=== PATIENT | female | born 1955 | race African-American/Black ===

== ENCOUNTER 2018-03-21 14:52 | Inpatient (IN) | payer OTHER ==
--- NOTE | 2018-03-21 15:14 | PDOC ---
Rapid Medical Evaluation Time Seen by Provider: 03/21/18 15:01 Medical Evaluation: Allergies Allergy/AdvReac Type Severity Reaction Status Date / Time No Allergy Information Allergy Verified 03/21/18 15:03 Available 03/21/18 15:05 I have performed a brief in-person evaluation of this patient. The patient presents with a chief complaint of: mouth pain, unable to handle secretions and speak and dizzy. Mouth pain x 2 weeks, dx w/ virus on 2 prior ED visits elsewhere. Sxs worsen today. No new drug prior to sxs onset. Is allergic to 1 medication but james not remember name. H/o PPM per daughter Pertinent physical exam findings: Pt febrile to 102 and take at 120 but uncomfortable at triage, drooling into facial mask w/ foul odor emanating from mouth and dried blood on lower lip, unable to open mouth fully I have ordered the following: labs, pt taken directly to main ED The patient will proceed to the ED for further evaluation. Discharge Disposition - Diagnosis Mouth pain - Referrals - Patient Instructions - Post Discharge Activity
[2018-03-21 17:07] LABS: HEMATOCRIT 31.2 % (32.4-45.2); HEMOGLOBIN 10.4 GM/dL (10.7-15.3); MCH 31.5 pg (25.7-33.7); MCHC 33.4 g/dl (32.0-36.0); MEAN CELL VOLUME 94.5 fl (80-96); MEAN PLT VOLUME 9.4 fl (7.5-11.1); PLATELET COUNT 246 K/MM3 (134-434); RDW 18.5 % (11.6-15.6); VENOUS PC02 36.1 mmHg (38-52); VENOUS PH 7.49 (7.32-7.42); VENOUS PO2 55.6 mmHg (28-48)
[2018-03-21] MEDS ORDERED: SODIUM CHLORIDE 1,000 ML IV STA (17:16)
[2018-03-21] MEDS ORDERED: ACETAMINOPHEN 1000 MG/100 ML VIAL (NON FORMULARY) IVPB ONE (17:16)
[2018-03-21] MEDS ORDERED: morphine CARPU-JECT 2 MG/1 ML DISP.SYRIN IVPUSH ONE (17:16)
[2018-03-21] MEDS ORDERED: ACETAMINOPHEN INJECTION 100 ML IVPB ONE (17:18)
[2018-03-21] MEDS ORDERED: MORPHINE SULFATE 2 MG/ML VIAL ONE (17:18)
[2018-03-21 17:23] LABS: WHITE BLOOD COUNT 0.8 K/mm3 (4.0-10.0)
[2018-03-21 17:31] LABS: ALBUMIN 3.4 g/dl (3.4-5.0); ANION GAP 9 (8-16); BLOOD UREA NITROGEN 33 mg/dL (7-18); CALCIUM 9.7 mg/dL (8.5-10.1); CHLORIDE 109 mmol/L (98-107); CO2 30 mmol/L (21-32); CREATININE 1.7 mg/dL (0.55-1.02); GLUCOSE,RANDOM 155 mg/dL (74-106); INR 1.19 (0.83-1.09); POTASSIUM 3.5 mmol/L (3.5-5.1); PROTHROMBIN TIME (PATIENT) 13.4 SEC (9.7-13.0); SGOT/AST 55 U/L (15-37); SGPT/ALT 77 U/L (12-78); SODIUM 148 mmol/L (136-145); TOT PROT 7.9 g/dl (6.4-8.2)
[2018-03-21 17:32] LABS: ALK PHOS 99 U/L (45-117)
[2018-03-21 17:33] LABS: ACTIVATED PTT 28.4 SECONDS (25.2-36.5)
[2018-03-21 17:45] LABS: HEMATOCRIT 31.3 % (32.4-45.2); HEMOGLOBIN 10.3 GM/dL (10.7-15.3); MCH 31.2 pg (25.7-33.7); MCHC 32.9 g/dl (32.0-36.0); MEAN CELL VOLUME 94.7 fl (80-96); MEAN PLT VOLUME 9.3 fl (7.5-11.1); PLATELET COUNT 240 K/MM3 (134-434); RBC 3.31 M/mm3 (3.60-5.2); RDW 19.1 % (11.6-15.6)
[2018-03-21] MEDS ORDERED: CEFEPIME HCL/D5W 2 GM/50 ML BAG IVPB ONE (18:04)
[2018-03-21 18:08] LABS: WHITE BLOOD COUNT 0.9 K/mm3 (4.0-10.0)
[2018-03-21] MEDS ORDERED: VANCOMYCIN 1,500 MG in DEXTROSE 5%-WATER - 500 ML IVPB ONE (18:10)
[2018-03-21] MEDS ORDERED: ACYCLOVIR INJECTION 860 MG in DEXTROSE 5%-WATER - 100 ML IVPB ONE (18:14)
[2018-03-21] MEDS ORDERED: ACYCLOVIR IVPB ONE (18:35)
[2018-03-21] MEDS ORDERED: WATER IVPB ONE (18:35)
[2018-03-21] MEDS ORDERED: DEXTROSE 5% IVPB ONE (18:35)
[2018-03-21 18:42] LABS: URINE APPEARANCE SLCLOUDY; URINE BILIRUBIN NEGATIVE (<2.0 mg/dL); URINE COLOR AMBER; URINE GLUCOSE (UA) NEGATIVE (NEGATIVE); URINE KETONE NEGATIVE (NEGATIVE); URINE LEUK ESTERASE NEGATIVE (NEGATIVE); URINE NITRITE NEGATIVE (NEGATIVE); URINE UROBILINOGEN 4.0 E.U/dl mg/dL (0.2-1.0)
--- NOTE | 2018-03-21 18:45 | PDOC ---
Attending Attestation - Medical Decision Making Case discussed with Dr. Lewis at 19:31. <Anig Dunn - Last Filed: 03/21/18 19:32> - Resident Resident Name: Adeel Harris - ED Attending Attestation I have performed the following: I have examined & evaluated the patient, The case was reviewed & discussed with the resident, I agree w/resident's findings & plan, Exceptions are as noted - HPI HPI: 03/21/18 20:36 "62F Accompanied with daughter presenting to ED with painful ulcers to mouth and rectum. Pt unable to contribute much history due to painful oral ulcers. Per daughter, pt was initially seen at [facility] [facility] 1 month ago for similar symptoms and was told she had a viral syndrome. Was given magic mouthwash which helped initially. Since then, pt has had progressive worsening of her ulcers. Pt denies noticing any fevers at home. Denies any other symptoms other than the severe pain in her mouth and rectum 2/2 ulcers. No skin lesions anywhere else on her body. Pmh: hypothyroidism (on synthroid), arthritis, pacemaker Smokes half a pack per day, no alcohol or drug use " - Physicial Exam PE: 03/21/18 20:39 "GENERAL: Awake, alert, in no acute distress. HEAD: No signs of trauma EYES: PERRLA, EOMI, sclera anicteric, conjunctiva clear ENT: + extensive aphthous ulcers with cracked lips NECK: Nontender, no stepoffs, Normal ROM, supple, no lymphadenopathy, JVD, or masses LUNGS: Breath sounds equal, clear to auscultation bilaterally. No wheezes, and no crackles HEART: Regular rate and rhythm, normal S1 and S2, no murmurs, rubs or gallops ABDOMEN: Soft, nontender, normoactive bowel sounds. No guarding, no rebound. No masses RECTAL: + multiple ulcers surrounding anus with surrounding erythema, no purulent drainage EXTREMITIES: Normal range of motion, no edema. No clubbing or cyanosis. No cords, erythema, or tenderness NEUROLOGICAL: Cranial nerves II through XII intact. 5/5 strength and sensation in all extremities, Normal speech, normal gait, normal cerebellar function SKIN: Warm, Dry, normal turgor, no rashes or lesions noted." - Medical Decision Making 03/21/18 20:40 62 F presenting with oral and rectal ulcers, found to be febrile to 103. Will evaluate for sepsis, source unclear at this point. Pt also concerning for possible autoimmune process or vasculitis. - Labs, cultures - CXR, UA - IVF, tylenol - Abx - ID consult - Rheum consult 03/21/18 21:00 Pt with neutropenic fever, etiology of neutropenia unclear. Pt possibly on immunosuppressants for RA, though she denies recent use. Vanc and cefepime ordered Acyclovir also given for possible HSV <Esteban Casas - Last Filed: 03/23/18 20:59> Attestations - Attestations Documentation prepared by Angi Dunn, acting as medical manager for Esteban Casas MD. <Angi Dunn - Last Filed: 03/21/18 19:32>
[2018-03-21 18:55] LABS: URINE PROTEIN 1+ (NEGATIVE)
[2018-03-21 19:02] LABS: EPI CELLS RARE /HPF (FEW); URINE BACTERIA RARE /hpf (NONE SEEN); URINE HYALINE CAST 31 /lpf; URINE MUCUS RARE
[2018-03-21] MEDS ORDERED: DEXAMETHASONE SOD PHOSPHATE 10 MG/1 ML VIAL IVPUSH ONE (19:23)
[2018-03-21 20:30] LABS: ANISOCYTOSIS 1+; MACROCYTOSIS 1+
--- NOTE | 2018-03-21 21:03 | PDOC ---
History of Present Illness - General Chief Complaint: SIRS, Suspected/Possible Stated Complaint: MOUTH BLEED, LIGHTHEADED Time Seen by Provider: 03/21/18 15:01 History Source: Family (daughter maxime) Exam Limitations: Physical Impairment - History of Present Illness Initial Comments: 03/21/18 21:26 Ms. Durham is a 62 yo F with a hx of arthritis, pacemaker, and hypothyroidism presents to the emergency room with painful ulcers to the mouth and rectum. Hx is limited due to the patient inability to communicate due to pain in the mouth and daughter's incomplete knowledge of her medical history. Per the daughter, she states she was initially seen at [facility] on February 27 for painful mouth ulcers. She was discharged from the emergency department with lidocaine wash and told it was a viral syndrome. Throughout the subsequent weeks , her pain has worsened. Pt was last seen communicative at 8pm yesterday. The daughter called today at 11am and her mother (Letty Durham) was only able to communicate with grunts and moans. She states no other sick contacts at home and denies a hx of autoimmune disorders. Through limited communication, the patient was able to indicate she had pain in her mouth and rectum with the ability to breathe. Pmhx: hypothyroidism, arthritis, pacemaker Shx: None Medications: synthroid. Allergies: NKDA Social: smokes 0.5 packs/day, denies alcohol and drug use. PCP: Unknown 03/21/18 22:21 Past History - Past Medical History Allergies/Adverse Reactions: Allergies Allergy/AdvReac Type Severity Reaction Status Date / Time No Allergy Information Allergy Verified 03/21/18 15:03 Available Home Medications: Ambulatory Orders Furosemide 80 mg PO DAILY 03/24/18 COPD: No - Immunization History Immunization Up to Date: (UNKNOWN) - Suicide/Smoking/Psychosocial Hx Smoking History: Current every day smoker Have you smoked in the past 12 months: Yes Information on smoking cessation initiated: No Review of Systems - Review of Systems Able to Perform ROS?: No (UNABLE TO COMMUNICATE) *Physical Exam - Vital Signs Last Vital Signs Temp Pulse Resp BP Pulse Ox 103.1 F H 93 H 20 116/71 98 03/21/18 17:08 03/21/18 18:39 03/21/18 16:22 03/21/18 16:22 03/21/18 16:22 - Physical Exam General Appearance: Yes: Mild Distress HEENT: positive: Other (ulcerations in the lower lip with drooling. Unable to visualize the oral cavity to completion due to patient unwilling to open mouth. Pupils were reactive to light and EOMI. ) Respiratory/Chest: positive: Lungs Clear, Normal Breath Sounds Cardiovascular: positive: Regular Rhythm, S1, S2, Tachycardia Gastrointestinal/Abdominal: positive: Normal Bowel Sounds. negative: Tender Rectal Exam: positive: other (ulcerations located in the anus region, perineal region, and inferior labia majora region. Ulcerations with clean margins and erythematous base without exudation.) Musculoskeletal: positive: Normal Inspection Integumentary: positive: Normal Color, Dry, Warm Neurologic: positive: Alert, Disoriented, Other (difficult to assess given patient compliance. able to move extremities sponatneously. ) Heart Score/ECG Review - ECG Intrepretation Comment:: 03/21/18 22:27 vent rate is 99 bpm, DC interval 158 ms, QRS 106 ms, QTc at 413 ms. atrial sensed ventricular paced rhythm. 03/21/18 22:31 ED Treatment Course - LABORATORY CBC & Chemistry Diagram: 03/25/18 06:00 03/25/18 06:00 - ADDITIONAL ORDERS Additional order review: Laboratory Results 03/21/18 03/21/18 03/21/18 18:33 18:00 16:50 PT with INR INR PTT (Actin FS) VBG pH POC VBG pCO2 POC VBG pO2 Mixed VBG HCO3 Sodium Potassium Chloride Carbon Dioxide Anion Gap BUN Creatinine Creat Clearance w eGFR Random Glucose Lactic Acid 1.8 Calcium Total Bilirubin AST ALT Alkaline Phosphatase Troponin I Total Protein Albumin Urine Color [place] Urine Appearance Slcloudy Urine pH 5.0 Ur Specific [place] 1.017 Urine Protein 1+ H Urine Glucose (UA) Negative Urine Ketones Negative Urine Blood Negative Urine Nitrite Negative Urine Bilirubin Negative Urine Urobilinogen 4.0 e.u/dl H Ur Leukocyte Esterase Negative Urine WBC (Auto) 5 Urine RBC (Auto) 2 Ur Epithelial Cells Rare Urine Bacteria Rare Hyaline Casts 31 Urine Mucus Rare Blood Type O POSITIVE Antibody Screen Negative 03/21/18 03/21/18 03/21/18 16:50 16:50 16:50 PT with INR INR PTT (Actin FS) VBG pH POC VBG pCO2 POC VBG pO2 Mixed VBG HCO3 Sodium 148 H Potassium 3.5 Chloride 109 H Carbon Dioxide 30 Anion Gap 9 BUN 33 H Creatinine 1.7 H Creat Clearance w eGFR 30.56 Random Glucose 155 H Lactic Acid 2.2 H* Calcium 9.7 Total Bilirubin 1.0 AST 55 H ALT 77 Alkaline Phosphatase 99 Troponin I 0.05 Total Protein 7.9 Albumin 3.4 Urine Color Urine Appearance Urine pH Ur Specific [place] Urine Protein Urine Glucose (UA) Urine Ketones Urine Blood Urine Nitrite Urine Bilirubin Urine Urobilinogen Ur Leukocyte Esterase Urine WBC (Auto) Urine RBC (Auto) Ur Epithelial Cells Urine Bacteria Hyaline Casts Urine Mucus Blood Type Antibody Screen 03/21/18 03/21/18 16:50 16:50 PT with INR 13.40 H INR 1.19 H PTT (Actin FS) 28.4 VBG pH 7.49 H POC VBG pCO2 36.1 L POC VBG pO2 55.6 H Mixed VBG HCO3 27.2 H Sodium Potassium Chloride Carbon Dioxide Anion Gap BUN Creatinine Creat Clearance w eGFR Random Glucose Lactic Acid Calcium Total Bilirubin AST ALT Alkaline Phosphatase Troponin I Total Protein Albumin Urine Color Urine Appearance Urine pH Ur Specific [place] Urine Protein Urine Glucose (UA) Urine Ketones Urine Blood Urine Nitrite Urine Bilirubin Urine Urobilinogen Ur Leukocyte Esterase Urine WBC (Auto) Urine RBC (Auto) Ur Epithelial Cells Urine Bacteria Hyaline Casts Urine Mucus Blood Type Antibody Screen 03/21/18 03/21/18 17:24 16:50 RBC 3.31 L 3.30 L MCV 94.7 94.5 MCHC 32.9 33.4 RDW 19.1 H 18.5 H MPV 9.3 9.4 Neutrophils % No Result Required. No Result Required. Lymphocytes % No Result Required. No Result Required. - RADIOLOGY Radiology Studies Ordered: Category Date Time Status CHEST X-RAY PORTABLE* [RAD] Stat Radiology 03/21/18 16:04 Completed - Medications Given in the ED: ED Medications Discontinued Medications Generic Name Dose Route Start Last Admin Trade Name Freq PRN Reason Stop Dose Admin Acetaminophen 1,000 mg 03/21/18 17:16 03/21/18 17:32 Ofirmev Injection - IVPB 03/21/18 17:17 1,000 mg ONCE ONE Administration Sodium Chloride 1,000 mls @ 1,000 mls/hr 03/21/18 17:16 03/21/18 17:31 Normal Saline - IV 03/21/18 18:15 1,000 mls/hr ASDIR STA Administration Cefepime HCl 2 gm in 50 mls @ 100 mls/hr 03/21/18 18:04 03/21/18 18:49 Maxipime 2gm Ivpb (Premix) IVPB 03/21/18 18:33 100 mls/hr ONCE ONE Administration Protocol Acyclovir 860 mg/ Dextrose 267.2 mls @ 267.2 mls/hr 03/21/18 18:35 03/21/18 19:48 IVPB 03/21/18 19:13 267.2 mls/hr ONCE ONE Administration Morphine Sulfate 2 mg 03/21/18 17:16 03/21/18 17:31 Morphine Injection - IVPUSH 03/21/18 17:17 2 mg ONCE ONE Administration Medical Decision Making - Medical Decision Making 03/21/18 21:02 Daughter Maxime's number: [phone] (alternate: [phone]) Pt presents to the emergency department with drooling, mouth ulcerations, rectal ulcerations, and elevated temperature. Concerning for sepsis +/- rheumatologic disease given physical exam findings. Initial vitals: Initial Vital Signs Temp Pulse Resp BP Pulse Ox 102.5 F H 120 H 17 110/69 98 03/21/18 15:03 03/21/18 15:03 03/21/18 15:03 03/21/18 15:03 03/21/18 15:03 Rectal temperature was done showing 103 F. Laboratory Tests 03/21/18 03/21/18 03/21/18 16:50 16:50 16:50 WBC 0.8 L* RBC 3.30 L Hgb 10.4 L Hct 31.2 L MCV 94.5 MCH 31.5 MCHC 33.4 RDW 18.5 H Plt Count 246 MPV 9.4 Absolute Neuts (auto) 0.3 Total Counted 100 Neutrophils % No Result Required. Neutrophils % (Manual) 32.0 L Band Neutrophils % 2.0 Lymphocytes % No Result Required. Lymphocytes % (Manual) 58.0 H Monocytes % (Manual) 8 Nucleated RBC % 0 Differential Comment Hypochromia 1+ Platelet Estimate Platelet Comment Anisocytosis 1+ Microcytosis 2+ Macrocytosis 1+ PT with INR 13.40 H INR 1.19 H PTT (Actin FS) 28.4 VBG pH 7.49 H POC VBG pCO2 36.1 L POC VBG pO2 55.6 H Mixed VBG HCO3 27.2 H Sodium Potassium Chloride Carbon Dioxide Anion Gap BUN Creatinine Creat Clearance w eGFR Random Glucose Lactic Acid Calcium Total Bilirubin AST ALT Alkaline Phosphatase Troponin I Total Protein Albumin Urine Color Urine Appearance Urine pH Ur Specific [place] Urine Protein Urine Glucose (UA) Urine Ketones Urine Blood Urine Nitrite Urine Bilirubin Urine Urobilinogen Ur Leukocyte Esterase Urine WBC (Auto) Urine RBC (Auto) Ur Epithelial Cells Urine Bacteria Hyaline Casts Urine Mucus HIV 1&2 Antibody Screen HIV P24 Antigen Blood Type Antibody Screen 03/21/18 03/21/18 03/21/18 16:50 16:50 16:50 WBC RBC Hgb Hct MCV MCH MCHC RDW Plt Count MPV Absolute Neuts (auto) Total Counted Neutrophils % Neutrophils % (Manual) Band Neutrophils % Lymphocytes % Lymphocytes % (Manual) Monocytes % (Manual) Nucleated RBC % Differential Comment Hypochromia Platelet Estimate Platelet Comment Anisocytosis Microcytosis Macrocytosis PT with INR INR PTT (Actin FS) VBG pH POC VBG pCO2 POC VBG pO2 Mixed VBG HCO3 Sodium 148 H Potassium 3.5 Chloride 109 H Carbon Dioxide 30 Anion Gap 9 BUN 33 H Creatinine 1.7 H Creat Clearance w eGFR 30.56 Random Glucose 155 H Lactic Acid 2.2 H* Calcium 9.7 Total Bilirubin 1.0 AST 55 H ALT 77 Alkaline Phosphatase 99 Troponin I 0.05 Total Protein 7.9 Albumin 3.4 Urine Color Urine Appearance Urine pH Ur Specific [place] Urine Protein Urine Glucose (UA) Urine Ketones Urine Blood Urine Nitrite Urine Bilirubin Urine Urobilinogen Ur Leukocyte Esterase Urine WBC (Auto) Urine RBC (Auto) Ur Epithelial Cells Urine Bacteria Hyaline Casts Urine Mucus HIV 1&2 Antibody Screen HIV P24 Antigen Blood Type Antibody Screen 03/21/18 03/21/18 03/21/18 16:50 17:04 17:24 WBC 0.9 L* RBC 3.31 L Hgb 10.3 L Hct 31.3 L MCV 94.7 MCH 31.2 MCHC 32.9 RDW 19.1 H Plt Count 240 MPV 9.3 Absolute Neuts (auto) 0.3 Total Counted 100 Neutrophils % No Result Required. Neutrophils % (Manual) 30.0 L Band Neutrophils % Lymphocytes % No Result Required. Lymphocytes % (Manual) 56.0 H Monocytes % (Manual) 14 H Nucleated RBC % 0 Differential Comment Man diff performed Hypochromia 1+ Platelet Estimate Adequate Platelet Comment Anisocytosis 1+ Microcytosis 1+ Macrocytosis 1+ PT with INR INR PTT (Actin FS) VBG pH POC VBG pCO2 POC VBG pO2 Mixed VBG HCO3 Sodium Potassium Chloride Carbon Dioxide Anion Gap BUN Creatinine Creat Clearance w eGFR Random Glucose Lactic Acid Calcium Total Bilirubin AST ALT Alkaline Phosphatase Troponin I Total Protein Albumin Urine Color Urine Appearance Urine pH Ur Specific [place] Urine Protein Urine Glucose (UA) Urine Ketones Urine Blood Urine Nitrite Urine Bilirubin Urine Urobilinogen Ur Leukocyte Esterase Urine WBC (Auto) Urine RBC (Auto) Ur Epithelial Cells Urine Bacteria Hyaline Casts Urine Mucus HIV 1&2 Antibody Screen Negative HIV P24 Antigen Negative Blood Type O POSITIVE Antibody Screen Negative 03/21/18 03/21/18 18:00 18:33 WBC RBC Hgb Hct MCV MCH MCHC RDW Plt Count MPV Absolute Neuts (auto) Total Counted Neutrophils % Neutrophils % (Manual) Band Neutrophils % Lymphocytes % Lymphocytes % (Manual) Monocytes % (Manual) Nucleated RBC % Differential Comment Hypochromia Platelet Estimate Platelet Comment Anisocytosis Microcytosis Macrocytosis PT with INR INR PTT (Actin FS) VBG pH POC VBG pCO2 POC VBG pO2 Mixed VBG HCO3 Sodium Potassium Chloride Carbon Dioxide Anion Gap BUN Creatinine Creat Clearance w eGFR Random Glucose Lactic Acid 1.8 Calcium Total Bilirubin AST ALT Alkaline Phosphatase Troponin I Total Protein Albumin Urine Color [place] Urine Appearance Slcloudy Urine pH 5.0 Ur Specific [place] 1.017 Urine Protein 1+ H Urine Glucose (UA) Negative Urine Ketones Negative Urine Blood Negative Urine Nitrite Negative Urine Bilirubin Negative Urine Urobilinogen 4.0 e.u/dl H Ur Leukocyte Esterase Negative Urine WBC (Auto) 5 Urine RBC (Auto) 2 Ur Epithelial Cells Rare Urine Bacteria Rare Hyaline Casts 31 Urine Mucus Rare HIV 1&2 Antibody Screen HIV P24 Antigen Blood Type Antibody Screen Given the neutropenic fever, she was started on cefepime, vancomycin, and acyclovir in the department. Dr. Limon was consulted and agreed with the management plan and suggested for CT chest abd pelvis for concerns of a possible malignancy. She was admitted as an inpatient. 03/25/18 13:25 *DC/Admit/Observation/Transfer Diagnosis at time of Disposition: Mouth pain, Neutropenic fever Sepsis Qualifiers: Sepsis type: sepsis due to unspecified organism Qualified Code(s): A41.9 - Sepsis, unspecified organism - Discharge Dispostion Decision to Admit order: Yes - Referrals - Patient Instructions - Post Discharge Activity
[2018-03-21 21:38] LABS: ANISOCYTOSIS 1+; MACROCYTOSIS 1+
[2018-03-21 21:39] LABS: PLATELET ESTIMATE ADEQUATE
--- NOTE | 2018-03-22 00:37 | PN ---
Teaching Attending Note Name of Resident: Haylee Portillo ATTENDING PHYSICIAN STATEMENT I saw and evaluated the patient. I reviewed the resident's note and discussed the case with the resident. I agree with the resident's findings and plan as documented. SUBJECTIVE: Patient is a 62 year old woman with a history of arthritis, tobacco use, pacemaker, and hypothyroidism presents to the ER with painful ulcers to the mouth and rectum. As per the daughter, patient was seen at [facility] on February 27 for painful mouth ulcers. She was discharged from the emergency department with lidocaine wash and told it was a viral syndrome. Throughout the subsequent weeks, her pain has worsened. Patient was last seen communicative at 8pm yesterday. The daughter called today at 11am and her mother was only able to communicate with grunts and moans. She states no other sick contacts at home and denies a hx of autoimmune disorders. Through limited communication, the patient was able to indicate she had pain in her mouth and rectum. OBJECTIVE: Alert. Difficulty talking due to painful mouth ulcers. Vital Signs Period Temp Pulse Resp BP Sys/Muniz Pulse Ox Last 24 Hr 102.5 F-103.1 F 93-120 17-20 110-116/69-71 98-98 HEENT: No Jaundice, eye redness or discharge, fundi not seen; PERRLA, EOMI. Unable to open mouth very wide, but has visible mouth ulcers. Normocephalic, atraumatic. External ears are normal and hearing is grossly intact. No nasal discharge. Neck: Supple, nontender. No palpable adenopathy or thyromegaly. No JVD Chest: Good effort. Clear to auscultation and percussion. Heart: Regular. No S3, rub or murmur Abdomen: Not distended, soft, nontender and no HSM. No rebound or guarding. Normoactive bowel sounds. Ext: Peripheral pulses intact. No leg edema. Ulcers between the gluteal folds and external hemorrhoids. Skin: Warm and dry. No petechiae, rash or ecchymosis. Neuro: Alert. Oriented x3. CN 2-12 grossly intact. Sensation grossly intact in all four extremities and DTR are symmetric. Home Medications Medication Instructions Recorded Unobtainable 03/21/18 Abnormal Lab Results 03/21/18 03/21/18 03/21/18 16:50 16:50 16:50 WBC 0.8 L* RBC 3.30 L Hgb 10.4 L Hct 31.2 L RDW 18.5 H Neutrophils % (Manual) 32.0 L Lymphocytes % (Manual) 58.0 H Monocytes % (Manual) PT with INR 13.40 H INR 1.19 H VBG pH 7.49 H POC VBG pCO2 36.1 L POC VBG pO2 55.6 H Mixed VBG HCO3 27.2 H Sodium Chloride BUN Creatinine Random Glucose Lactic Acid AST Urine Protein Urine Urobilinogen 03/21/18 03/21/18 03/21/18 16:50 16:50 17:24 WBC 0.9 L* RBC 3.31 L Hgb 10.3 L Hct 31.3 L RDW 19.1 H Neutrophils % (Manual) 30.0 L Lymphocytes % (Manual) 56.0 H Monocytes % (Manual) 14 H PT with INR INR VBG pH POC VBG pCO2 POC VBG pO2 Mixed VBG HCO3 Sodium 148 H Chloride 109 H BUN 33 H Creatinine 1.7 H Random Glucose 155 H Lactic Acid 2.2 H* AST 55 H Urine Protein Urine Urobilinogen 03/21/18 18:33 WBC RBC Hgb Hct RDW Neutrophils % (Manual) Lymphocytes % (Manual) Monocytes % (Manual) PT with INR INR VBG pH POC VBG pCO2 POC VBG pO2 Mixed VBG HCO3 Sodium Chloride BUN Creatinine Random Glucose Lactic Acid AST Urine Protein 1+ H Urine Urobilinogen 4.0 e.u/dl H ASSESSMENT AND PLAN: 1. Sepsis and Neutropenic Fever - Source of infection unclear. Cholelithiasis noted on abdominal CT scan and HIV test is negative. Sepsis work up done and ID consulted. Will swab ulcers for culture and continue Vancomycin, Cefepime and Acyclovir as well as IV NS. If serum sodium is higher with repeat BMP, will switch to 0.45% NaCl. Dehydration may explain hypernatremia. Viscous lidocane for swish and spit. Consult Rheumatology and Opthalmology (for dilated fundoscopy) to evaluate for Behcet syndrome. Implement reverse isolation. ENT consult for better oropharyngeal assessment. 2. Tobacco Use We will provide patient all the necessary assistance to facilitate smoking cessation and prescribe Nicotine patch. 3. HEATHER? - May have underlying CKD with superimposed HEATHER. Getting fluids to correct any component of superimposed dehydration and ameliorate any potential toxicity from vancomycin and acyclovir. Consult nephrology and avoid nephrotoxic agents such as NSAIDS, aminoglycosides, contrast dyes and certain alternative medicine products. 4. Anemia - Etiology unclear. Will do basic anemia work up including serial stool guaiacs, reticulocyte count and iron studies. 5. DVT prophylaxis - Heparin 5000u sq tid. 6. Advance directives - Full code
[2018-03-22] MEDS: MORPHINE SULFATE 2 MG/ML VIAL IVPUSH PRN ×4 (03:57→19:55)
[2018-03-22 05:56] LABS: BASO % 0.5 % (0-2.0); EOS % 0.2 % (0-4.5); HEMATOCRIT 27.8 % (32.4-45.2); HEMOGLOBIN 9.2 GM/dL (10.7-15.3); LYMPH % 47.8 % (8-40); MCH 31.5 pg (25.7-33.7); MCHC 33.1 g/dl (32.0-36.0); MEAN CELL VOLUME 95.2 fl (80-96); MEAN PLT VOLUME 9.2 fl (7.5-11.1); MONO % 8.3 % (3.8-10.2); NEUT % 43.2 % (42.8-82.8); PLATELET COUNT 183 K/MM3 (134-434); RBC 2.92 M/mm3 (3.60-5.2); RDW 18.7 % (11.6-15.6)
[2018-03-22 06:17] LABS: ALBUMIN 2.9 g/dl (3.4-5.0); ANION GAP 7 (8-16); BLOOD UREA NITROGEN 31 mg/dL (7-18); CALCIUM 9.3 mg/dL (8.5-10.1); CHLORIDE 113 mmol/L (98-107); CO2 28 mmol/L (21-32); CREATININE 1.2 mg/dL (0.55-1.02); GLUCOSE,RANDOM 115 mg/dL (74-106); MAGNESIUM 2.7 mg/dL (1.8-2.4); PHOSPHOROUS 2.3 mg/dL (2.5-4.9); POTASSIUM 3.1 mmol/L (3.5-5.1); SGOT/AST 33 U/L (15-37); SGPT/ALT 56 U/L (12-78); SODIUM 148 mmol/L (136-145)
[2018-03-22 06:18] LABS: ALK PHOS 78 U/L (45-117); TOT PROT 6.5 g/dl (6.4-8.2)
--- NOTE | 2018-03-22 06:25 | HP ---
CHIEF COMPLAINT: Mouth ulcers PCP: HISTORY OF PRESENT ILLNESS: 62 y/o F presents with painful ulcers in her mouth and rectum. Patient says the ulcers began in her mouth since August as a single ulcer and have been worsening since. Patient has had increasing mouth pain for the past 2 weeks accompanied with dizziness and inability to speak. She says she has lost 15lbs over the past 5 weeks. Patient was last able to communicate during the evening prior at 8pm with her daughter. The following morning, her pain had increased to the point where patient was only able to grunt and moan. She was seen in the [facility] ED one month ago for these same symptoms and was diagnosed with Viral syndrome and was discharged with Lidocaine mouth wash. ER course was notable for: (1) (2) (3) Recent Travel: Denies PAST MEDICAL HISTORY: Hypothyroidism Arthritis Pacemaker (?01/2018) PAST SURGICAL HISTORY: Social History: Smokin/2 ppd Alcohol: Denies Drugs: Denies Family History: Allergies No Allergy Information Available Allergy (Verified 03/21/18 15:03) HOME MEDICATIONS: Home Medications Medication Instructions Recorded Unobtainable 03/21/18 REVIEW OF SYSTEMS CONSTITUTIONAL: Present: weight change Absent: fever, chills, diaphoresis, generalized weakness, malaise, loss of appetite HEENT: Absent: rhinorrhea, nasal congestion, throat pain, throat swelling, difficulty swallowing, mouth swelling, ear pain, eye pain, visual changes CARDIOVASCULAR: Absent: chest pain, syncope, palpitations, irregular heart rate, lightheadedness , peripheral edema RESPIRATORY: Absent: cough, shortness of breath, dyspnea with exertion, orthopnea, wheezing, stridor, hemoptysis GASTROINTESTINAL: Absent: abdominal pain, abdominal distension, nausea, vomiting, diarrhea, constipation, melena, hematochezia GENITOURINARY: Absent: dysuria, frequency, urgency, hesitancy, hematuria, flank pain, genital pain MUSCULOSKELETAL: Absent: myalgia, arthralgia, joint swelling, back pain, neck pain SKIN: Absent: rash, itching, pallor HEMATOLOGIC/IMMUNOLOGIC: Absent: easy bleeding, easy bruising, lymphadenopathy, frequent infections ENDOCRINE: Present: unexplained weight loss Absent: unexplained weight gain, heat intolerance, cold intolerance NEUROLOGIC: Present: dizziness Absent: headache, focal weakness or paresthesias, unsteady gait, seizure, mental status changes, bladder or bowel incontinence PSYCHIATRIC: Absent: anxiety, depression, suicidal or homicidal ideation, hallucinations. PHYSICAL EXAMINATION Vital Signs - 24 hr 03/21/18 03/21/18 03/21/18 15:03 16:22 17:08 Temperature 102.5 F H 103 F H 103.1 F H Pulse Rate 120 H Pulse Rate [ 108 H Apical] Respiratory 17 20 Rate Blood Pressure 110/69 Blood Pressure 116/71 [Right Arm] O2 Sat by Pulse 98 98 Oximetry (%) 03/21/18 03/21/18 03/22/18 18:39 21:00 00:52 Temperature Pulse Rate 90 Pulse Rate [ 93 H 90 Apical] Respiratory 21 Rate Blood Pressure Blood Pressure 101/51 [Right Arm] O2 Sat by Pulse 95 95 Oximetry (%) 03/22/18 03/22/18 01:14 01:23 Temperature 99.3 F 98.8 F Pulse Rate 89 Pulse Rate [ Apical] Respiratory 18 Rate Blood Pressure 150/68 Blood Pressure [Right Arm] O2 Sat by Pulse 97 Oximetry (%) GENERAL: Awake, alert, difficulty with speak, in moderate acute distress. EYES: PERRL, EOMI. No lid lag. THROAT: Unable to properly assess oropharynx as patient has significant pain when opening her jaw. Multiple mouth ulcers visible however. Dried blood present over ulcers on the caudad lip. Multiple bouts of yellow/brown/red saliva drooling from mouth as patient has much difficulty with closing her jaw NECK: No JVD. LUNGS: Breath sounds equal, clear to auscultation bilaterally. No wheezes. HEART: Regular rate and rhythm, normal S1 and S2 without murmur. ABDOMEN: Soft, nontender, not distended, normoactive bowel sounds, no guarding. MUSCULOSKELETAL: Normal range of motion at all joints. No bony deformities or tenderness. No CVA tenderness. EXTREMITIES: 2+ pulses, No peripheral edema. SKIN: Multiple Ulcers present between gluteal folds, without active drainage/ discharge, with no surrounding erythema or swelling. Area was significantly tender surrounding the ulcers. Laboratory Results - last 24 hr 03/21/18 03/21/18 03/21/18 16:50 16:50 16:50 WBC 0.8 L* RBC 3.30 L Hgb 10.4 L Hct 31.2 L MCV 94.5 MCH 31.5 MCHC 33.4 RDW 18.5 H Plt Count 246 MPV 9.4 Absolute Neuts (auto) 0.3 Total Counted 100 Neutrophils % No Result Required. Neutrophils % (Manual) 32.0 L Band Neutrophils % 2.0 Lymphocytes % No Result Required. Lymphocytes % (Manual) 58.0 H Monocytes % (Manual) 8 Nucleated RBC % 0 Differential Comment Hypochromia 1+ Platelet Estimate Platelet Comment Anisocytosis 1+ Microcytosis 2+ Macrocytosis 1+ PT with INR 13.40 H INR 1.19 H PTT (Actin FS) 28.4 VBG pH 7.49 H POC VBG pCO2 36.1 L POC VBG pO2 55.6 H Mixed VBG HCO3 27.2 H Sodium Potassium Chloride Carbon Dioxide Anion Gap BUN Creatinine Creat Clearance w eGFR Random Glucose Lactic Acid Calcium Total Bilirubin AST ALT Alkaline Phosphatase Troponin I Total Protein Albumin Urine Color Urine Appearance Urine pH Ur Specific [place] Urine Protein Urine Glucose (UA) Urine Ketones Urine Blood Urine Nitrite Urine Bilirubin Urine Urobilinogen Ur Leukocyte Esterase Urine WBC (Auto) Urine RBC (Auto) Ur Epithelial Cells Urine Bacteria Hyaline Casts Urine Mucus HIV 1&2 Antibody Screen HIV P24 Antigen Blood Type Antibody Screen 03/21/18 03/21/18 03/21/18 16:50 16:50 16:50 WBC RBC Hgb Hct MCV MCH MCHC RDW Plt Count MPV Absolute Neuts (auto) Total Counted Neutrophils % Neutrophils % (Manual) Band Neutrophils % Lymphocytes % Lymphocytes % (Manual) Monocytes % (Manual) Nucleated RBC % Differential Comment Hypochromia Platelet Estimate Platelet Comment Anisocytosis Microcytosis Macrocytosis PT with INR INR PTT (Actin FS) VBG pH POC VBG pCO2 POC VBG pO2 Mixed VBG HCO3 Sodium 148 H Potassium 3.5 Chloride 109 H Carbon Dioxide 30 Anion Gap 9 BUN 33 H Creatinine 1.7 H Creat Clearance w eGFR 30.56 Random Glucose 155 H Lactic Acid 2.2 H* Calcium 9.7 Total Bilirubin 1.0 AST 55 H ALT 77 Alkaline Phosphatase 99 Troponin I 0.05 Total Protein 7.9 Albumin 3.4 Urine Color Urine Appearance Urine pH Ur Specific [place] Urine Protein Urine Glucose (UA) Urine Ketones Urine Blood Urine Nitrite Urine Bilirubin Urine Urobilinogen Ur Leukocyte Esterase Urine WBC (Auto) Urine RBC (Auto) Ur Epithelial Cells Urine Bacteria Hyaline Casts Urine Mucus HIV 1&2 Antibody Screen HIV P24 Antigen Blood Type Antibody Screen 03/21/18 03/21/18 03/21/18 16:50 17:04 17:24 WBC 0.9 L* RBC 3.31 L Hgb 10.3 L Hct 31.3 L MCV 94.7 MCH 31.2 MCHC 32.9 RDW 19.1 H Plt Count 240 MPV 9.3 Absolute Neuts (auto) 0.3 Total Counted 100 Neutrophils % No Result Required. Neutrophils % (Manual) 30.0 L Band Neutrophils % Lymphocytes % No Result Required. Lymphocytes % (Manual) 56.0 H Monocytes % (Manual) 14 H Nucleated RBC % 0 Differential Comment Man diff performed Hypochromia 1+ Platelet Estimate Adequate Platelet Comment Anisocytosis 1+ Microcytosis 1+ Macrocytosis 1+ PT with INR INR PTT (Actin FS) VBG pH POC VBG pCO2 POC VBG pO2 Mixed VBG HCO3 Sodium Potassium Chloride Carbon Dioxide Anion Gap BUN Creatinine Creat Clearance w eGFR Random Glucose Lactic Acid Calcium Total Bilirubin AST ALT Alkaline Phosphatase Troponin I Total Protein Albumin Urine Color Urine Appearance Urine pH Ur Specific [place] Urine Protein Urine Glucose (UA) Urine Ketones Urine Blood Urine Nitrite Urine Bilirubin Urine Urobilinogen Ur Leukocyte Esterase Urine WBC (Auto) Urine RBC (Auto) Ur Epithelial Cells Urine Bacteria Hyaline Casts Urine Mucus HIV 1&2 Antibody Screen Negative HIV P24 Antigen Negative Blood Type O POSITIVE Antibody Screen Negative 03/21/18 03/21/18 18:00 18:33 WBC RBC Hgb Hct MCV MCH MCHC RDW Plt Count MPV Absolute Neuts (auto) Total Counted Neutrophils % Neutrophils % (Manual) Band Neutrophils % Lymphocytes % Lymphocytes % (Manual) Monocytes % (Manual) Nucleated RBC % Differential Comment Hypochromia Platelet Estimate Platelet Comment Anisocytosis Microcytosis Macrocytosis PT with INR INR PTT (Actin FS) VBG pH POC VBG pCO2 POC VBG pO2 Mixed VBG HCO3 Sodium Potassium Chloride Carbon Dioxide Anion Gap BUN Creatinine Creat Clearance w eGFR Random Glucose Lactic Acid 1.8 Calcium Total Bilirubin AST ALT Alkaline Phosphatase Troponin I Total Protein Albumin Urine Color [place] Urine Appearance Slcloudy Urine pH 5.0 Ur Specific [place] 1.017 Urine Protein 1+ H Urine Glucose (UA) Negative Urine Ketones Negative Urine Blood Negative Urine Nitrite Negative Urine Bilirubin Negative Urine Urobilinogen 4.0 e.u/dl H Ur Leukocyte Esterase Negative Urine WBC (Auto) 5 Urine RBC (Auto) 2 Ur Epithelial Cells Rare Urine Bacteria Rare Hyaline Casts 31 Urine Mucus Rare HIV 1&2 Antibody Screen HIV P24 Antigen Blood Type Antibody Screen Active Medications Acetaminophen (Tylenol -) 650 mg PO Q4H PRN PRN Reason: PAIN LEVEL 1 - 3 Heparin Sodium (Porcine) (Heparin -) 5,000 unit SQ TID FLAVIO Potassium Phosphate 40 mm/ (Dextrose) 263.3333 mls @ 62.5 mls/hr IVPB ONCE ONE Stop: 03/22/18 11:25 Potassium Phosphate 40 mm/ (Dextrose) 263.3333 mls @ 62.5 mls/hr IVPB ONCE ONE Stop: 03/22/18 11:28 Sodium Chloride (1/2 Normal Saline) 1,000 mls @ 42 mls/hr IV ASDIR FLAVIO Morphine Sulfate (Morphine Sulfate) 2 mg IVPUSH Q4H PRN PRN Reason: PAIN LEVEL 7 - 10 Last Admin: 03/22/18 03:57 Dose: 2 mg IMAGING: - CXR: elevated right hemidiaphragm, large heart, unfolded aorta, left-sided pacemaker and no sign of an acute process. The bones and soft tissues are intact. - CT Chest, Abdomen and Pelvis: No evidence of pneumonia or acute pathology within the chest. Cholelithiasis. No evidence of intra-abdominal abscess or acute pathology within the abdomen or pelvis. ASSESSMENT/PLAN: 62 y/o F presents with painful ulcers in her mouth and rectum was found to have neutropenic fever and admitted to Obs for sepsis. 1. Sepsis - Temp 103.1 F, HR 90, WBC 0.9 - Unclear source of infection - CXR and UA noted above, Blood and urine cx pending - Lactic acid 2.2 --> 1.8 - Continue Vancomycin, Cefepime, Acyclovir - D'C'ed IV NS; Started on IV 1/2 NS @ 42mls - Swab ulcers in Oropharynx and Gluteal folds for cultures - ID (Dr. Lewis) consulted - Rheumatolgy (Dr. Canas) consulted - Ophthamology (Dr. Harrison) Consulted 2. Hypokalemia - Repeat K+ 3.1 - Ordered 40 mEq KPhos x 2 doses 3. HEATHER - BUN 33, Cr 1.7 - Started on IV 1/2 NS @ 42mls - Nephrology (Dr. Carlin) consulted 4. Anemia - Unclear Etiology - Serial Stool Guaiacs, Reticulocyte count, Iron studies 5. FEN - 1/2 Normal Saline @ 42 mls/hr IV - Ordered 40 mEq KPhos x 2 doses - Full Liquid diet, Ensure ordered 6. PPX - DVT: Heparin 5000u AQ TID Visit type - Emergency Visit Emergency Visit: Yes ED Registration Date: 03/22/18 Care time: The patient presented to the Emergency Department on the above date and was hospitalized for further evaluation of their emergent condition. - New Patient This patient is new to me today: Yes Date on this admission: 03/23/18 - Critical Care Critical Care patient: No Hospitalist Screening - Colonoscopy Questionnaire Colonoscopy Questionnaire: Colonoscopy Questionnaire - Patient: 50 - 75 years old and never had a screening colonoscopy: Unknown History of colon or rectal polyps, or CA: Unknown History of IBD, Crohn's disease or UC: Unknown History of abdominal radiation therapy as a child: Unknown - Relative: 1 with colon or rectal CA, or polyps at age 60 or younger: Unknown Colon or rectal CA diagnosed at age 45 or younger: Unknown Multiple relatives with colon or rectal CA: Unknown - Outcome: Screening Result: Negative Screen
[2018-03-22] MEDS ORDERED: POTASSIUM PHOSPHATE 40 MM in DEXTROSE 5%-WATER - 250 ML IVPB ONE ×2 (07:13→07:16)
[2018-03-22] MEDS ORDERED: POTASSIUM PHOSPHATE 40 MM in DEXTROSE 5%-WATER - 500 ML IVPB ONE (09:00)
--- NOTE | 2018-03-22 09:03 | EKG ---
Test Reason : Blood Pressure : / mmHG Vent. Rate : 099 BPM Atrial Rate : 099 BPM P-R Int : 158 ms QRS Dur : 106 ms QT Int : 322 ms P-R-T Axes : 025 005 188 degrees QTc Int : 413 ms Atrial-sensed ventricular-paced rhythm ABNORMAL ECG NO PREVIOUS ECGS AVAILABLE Confirmed by SHANKAR HDZ MD ([id number]) on 03/22/2018 9:02:34 AM Referred By: Confirmed By:SHANKAR HDZ MD
--- NOTE | 2018-03-22 09:14 | HOSP ---
Subjective - Review of Symptoms Events since last encounter: Patient is unable to talk due to her mouth ulcerations that started to have a month ago with progression. Vital Signs Temperature 99.7 F H 03/22/18 06:36 Pulse Rate 108 H 03/22/18 06:36 Respiratory Rate 18 03/22/18 06:36 Blood Pressure 107/58 03/22/18 06:36 O2 Sat by Pulse Oximetry (%) 97 03/22/18 01:23 GENERAL: Awake, alert, difficulty with speak, in moderate acute distress. EYES: PERRL, EOMI. No lid lag. THROAT: Unable to examine since unable to open the mouth . Multiple mouth ulcers visible however. Dried blood present over ulcers on the lip. NECK: No JVD. LUNGS: Breath sounds equal, clear to auscultation bilaterally. No wheezes. HEART: Regular rate and rhythm, normal S1 and S2 without murmur. ABDOMEN: Soft, nontender, not distended, normoactive bowel sounds, no guarding. MUSCULOSKELETAL: Normal range of motion at all joints. No bony deformities or tenderness. No CVA tenderness. EXTREMITIES: 2+ pulses, No peripheral edema. SKIN: Multiple Ulcers present between gluteal folds, without active drainage/ discharge, with no surrounding erythema or swelling. Area was significantly tender surrounding the ulcers. CBCD WBC 1.0 K/mm3 (4.0-10.0) L* 03/22/18 05:30 RBC 2.92 M/mm3 (3.60-5.2) L 03/22/18 05:30 Hgb 9.2 GM/dL (10.7-15.3) L 03/22/18 05:30 Hct 27.8 % (32.4-45.2) L 03/22/18 05:30 MCV 95.2 fl (80-96) 03/22/18 05:30 MCHC 33.1 g/dl (32.0-36.0) 03/22/18 05:30 RDW 18.7 % (11.6-15.6) H 03/22/18 05:30 Plt Count 183 K/MM3 (134-434) D 03/22/18 05:30 MPV 9.2 fl (7.5-11.1) 03/22/18 05:30 CMP Sodium 148 mmol/L (136-145) H 03/22/18 05:30 Potassium 3.1 mmol/L (3.5-5.1) L 03/22/18 05:30 Chloride 113 mmol/L (98-107) H 03/22/18 05:30 Carbon Dioxide 28 mmol/L (21-32) 03/22/18 05:30 Anion Gap 7 (8-16) L 03/22/18 05:30 BUN 31 mg/dL (7-18) H 03/22/18 05:30 Creatinine 1.2 mg/dL (0.55-1.02) H 03/22/18 05:30 Creat Clearance w eGFR 45.67 (>60) 03/22/18 05:30 Random Glucose 115 mg/dL (74-106) H 03/22/18 05:30 Calcium 9.3 mg/dL (8.5-10.1) 03/22/18 05:30 Total Bilirubin 1.0 mg/dL (0.2-1.0) 03/22/18 05:30 AST 33 U/L (15-37) 03/22/18 05:30 ALT 56 U/L (12-78) 03/22/18 05:30 Alkaline Phosphatase 78 U/L (45-117) D 03/22/18 05:30 Total Protein 6.5 g/dl (6.4-8.2) 03/22/18 05:30 Albumin 2.9 g/dl (3.4-5.0) L 03/22/18 05:30 CARDIAC ENZYMES Troponin I 0.05 ng/ml (0.00-0.05) 03/21/18 16:50 Current Medications Generic Name Dose Route Start Last Admin Trade Name Freq PRN Reason Stop Dose Admin Acetaminophen 650 mg 03/22/18 01:28 Tylenol - PO Q4H PRN PAIN LEVEL 1 - 3 Heparin Sodium (Porcine) 5,000 unit 03/22/18 06:45 Heparin - SQ TID FLAVIO Sodium Chloride 1,000 mls @ 42 mls/hr 03/22/18 07:30 1/2 Normal Saline IV ASDIR FLAVIO Potassium Phosphate 40 mm/ 513.3333 mls @ 85.556 mls/hr 03/22/18 09:00 Dextrose IVPB 03/22/18 14:59 ONCE ONE Lactobacillus Acidophilus 1 tab 03/22/18 10:00 Bacid - PO BID FLAVIO Morphine Sulfate 2 mg 03/22/18 03:09 03/22/18 03:57 Morphine Sulfate IVPUSH 2 mg Q4H PRN Administration PAIN LEVEL 7 - 10 Home Medications Medication Instructions Recorded Unobtainable 03/21/18 a/p; Patient is a 62 y/o Female presented to ED. with painful ulcers in her mouth and rectum. Patient says the ulcers began in her mouth since August as a single ulcer and have been worsening ever since.Patient has # Acute stomatitis, perianal ulcers and leukopenia. Most likely s/e of MTX or stopped taking Folic acid while taking MTx. As per patient she missed some folic acid doses .Patient is unable to eat or drink due to her pain. GI /hemonc on the case. Magic mouth wash ordered. # Neutropenia r/o malignancy, also s/e of MTX can cause neutropenia. DVT Px: Heparin Physical Examination Vital Signs: Vital Signs Temperature 99.7 F H 03/22/18 06:36 Pulse Rate 108 H 03/22/18 06:36 Respiratory Rate 18 03/22/18 06:36 Blood Pressure 107/58 03/22/18 06:36 O2 Sat by Pulse Oximetry (%) 97 03/22/18 01:23 Labs: CBC, BMP 03/22/18 05:30 03/22/18 05:30
[2018-03-22] MEDS: HEPARIN NA (PORCINE) 5,000 UNITS/ML 1ML VIAL SQ SCH ×3 (09:53→21:04)
[2018-03-22] MEDS: SODIUM CHLORIDE 0.45% 1,000 ML IV SCH (10:15)
[2018-03-22 10:24] LABS: ANISOCYTOSIS 1+; MACROCYTOSIS 1+; OVALOCYTE 1+; PLATELET ESTIMATE NORMAL
[2018-03-22] MEDS: LACTOBACILLUS ACIDOPHILUS 1 TABLET PO SCH ×2 (11:12→21:04)
--- NOTE | 2018-03-22 13:23 | CONSULT ---
Consult - text type - Consultation Consultation Note: HEMATOLOGY CONSULT NOTE : This is a 62 yr old female with Rheumatoid arthritis , hypothyroidism who presents with painful ulcers in her mouth and rectum. She has severe mucositis in her mouth. The daughter says that this started around February 25 - worsened in the past 2 -4 weeks. She takes Methotrexate thrice a week for her rheumatoid arthritis and she stopped it 2 weeks ago. She also was recently prescribed prednsione by her robotics software engineer. She is now writing and describing ehr symptoms. She has no prior h/o of malignancy. She reports no recent history of abx. The only meds which she was taking were losartan and carvedilol, synthyroid. Pmhx: hypothyroidism, arthritis, pacemaker Shx: None Medications: synthroid. Allergies: NKDA Social: smokes 0.5 packs/day, denies alcohol and drug use. PCP: Unknown 03/21/18 22:21 Past History - Past Medical History Allergies/Adverse Reactions: Allergies Allergy/AdvReac Type Severity Reaction Status Date / Time No Allergy Information Allergy Verified 03/21/18 15:03 Available Home Medications: Ambulatory Orders COPD: No - Immunization History Immunization Up to Date: (UNKNOWN) - Suicide/Smoking/Psychosocial Hx Smoking History: Current every day smoker Have you smoked in the past 12 months: Yes Information on smoking cessation initiated: No Review of Systems - Review of Systems Able to Perform ROS?: No (UNABLE TO COMMUNICATE) *Physical Exam - Vital Signs Vital Signs Period Temp Pulse Resp BP Sys/Muniz Pulse Ox Last 24 Hr 98.8 F-103.1 F 89-120 17-21 101-150/51-71 95-98 - Physical Exam General Appearance: Yes: Mild Distress Severe Grade 3 mucositis in her mouth No LN CBC, BMP 03/22/18 05:30 03/22/18 05:30 Current Medications Generic Name Dose Route Start Last Admin Trade Name Freq PRN Reason Stop Dose Admin Acetaminophen 650 mg 03/22/18 01:28 Tylenol - PO Q4H PRN PAIN LEVEL 1 - 3 Heparin Sodium (Porcine) 5,000 unit 03/22/18 06:45 03/22/18 09:53 Heparin - SQ Not Given TID FLAVIO Sodium Chloride 1,000 mls @ 42 mls/hr 03/22/18 07:30 03/22/18 10:15 1/2 Normal Saline IV 42 mls/hr ASDIR FLAVIO Administration Potassium Phosphate 40 mm/ 513.3333 mls @ 85.556 mls/hr 03/22/18 09:00 10:10 Dextrose IVPB 03/22/18 14:59 85.556 mls/hr ONCE ONE Administration Lactobacillus Acidophilus 1 tab 03/22/18 10:00 03/22/18 11:12 Bacid - PO Not Given BID FLAVIO Morphine Sulfate 2 mg 03/22/18 03:09 03/22/18 09:49 Morphine Sulfate IVPUSH 2 mg Q4H PRN Administration PAIN LEVEL 7 - 10 Witch Chikis/Glycerin 1 pad 03/22/18 22:00 Tucks Pads - TP BID FLAVIO Plan : Severe neutropenia with Grade 3 mucositis -This nearly looks like Methotrexate toxicity -Other Ddx inc. T-LGL, Viral induced neutropenia [Check CMV PCR], Feltys syndrome -She will likley need a BM biopsy during the week -Check RF, DRE, Flow, B12, Folate -I dont think we should give G-CSF before a BM biopsy as it might alter the results and make it difficult to differtiate a malignant from a non malignant process -ID consult to r/o HSV. Other Ddx could be CMV -Will continue to follow 03/21/18 21:02 Daughter Dorothea's number: [phone] (alternate: [phone])
--- NOTE | 2018-03-22 14:32 | CON.ID ---
Consult Consult Specialty:: infectious diseases Reason for Consultation:: neutropenic fever ,mouth ulcers - History of Present Illness Chief Complaint: pain in the mouth and fever and unable to talk History of Present Illness: 62 y/o F presents with painful ulcers in her mouth and rectum. Patient says the ulcers began in her mouth since August as a single ulcer and have been worsening since. Patient has had increasing mouth pain for the past 2 weeks accompanied with dizziness and inability to speak. She says she has lost 15lbs over the past 5 weeks. History taken from the patient daughter with patient there as patient unable to speak because of pain She was seen in the [facility] ED one month ago for these same symptoms and was diagnosed with Viral syndrome and was discharged with Lidocaine mouth wash. patient when came to the ER was spiking high fevers and was neutropenic she received a dose of vanco and cefepime. Has been afebrile since then patient mentions that untill recently she was taking methotrexate for rheumatoid arthritis which she has used nearly for 20 years EGD 2 years go was normal. Never had colonsocopy. Reports no melena, hematochezia, or mucous in stool. - History Source History Provided By: Patient, Family Member Limitations to Obtaining History: Clinical Condition - Smoking History Smoking history: Current every day smoker Have you smoked in the past 12 months: Yes Home Medications - Allergies Allergies/Adverse Reactions: Allergies Allergy/AdvReac Type Severity Reaction Status Date / Time No Allergy Information Allergy Verified 03/21/18 15:03 Available - Home Medications Home Medications: Ambulatory Orders Unobtainable 03/21/18 Review of Systems Unable to obtain ROS, reason: unable Physical Exam Vital Signs: Vital Signs Temperature 99.7 F H 03/22/18 06:36 Pulse Rate 108 H 03/22/18 06:36 Respiratory Rate 18 03/22/18 09:00 Blood Pressure 107/58 03/22/18 06:36 O2 Sat by Pulse Oximetry (%) 97 03/22/18 09:00 Constitutional: Yes: Well Nourished, Calm, Mild Distress Eyes: Yes: Conjunctiva Clear HENT: Yes: Other (painful mouth ulcers with blood on the lips inability to talk) Neck: Yes: Supple, Trachea Midline Cardiovascular: Yes: Regular Rate and Rhythm Respiratory: Yes: Regular, CTA Bilaterally Gastrointestinal: Yes: Normal Bowel Sounds, Soft ...Rectal Exam: Yes: Other (defereed says she has hemorrhoids) Musculoskeletal: Yes: WNL Extremities: Yes: WNL Neurological: Yes: Alert, Oriented Psychiatric: Yes: Alert, Oriented Labs: CBC, BMP 03/22/18 05:30 03/22/18 05:30 Imaging - Results Chest X-ray: Report Reviewed, Image Reviewed Cat Scan: Report Reviewed, Image Reviewed Assessment/Plan Problem List - Problems (1) Stomatitis Code(s): K12.1 - OTHER FORMS OF STOMATITIS (2) Stomatitis, ulcerative Code(s): K12.1 - OTHER FORMS OF STOMATITIS (3) Neutropenic fever Code(s): D70.9 - NEUTROPENIA, UNSPECIFIED; R50.81 - FEVER PRESENTING WITH CONDITIONS CLASSIFIED ELSEWHERE 4 gm positive bacteremia Assessment/Plan A 62F with stomatitis, perianal ulcers and leukopenia coming in with fever and inability to eat also having blood cx positive which i think might be a contaminant 1 will continue cefepime monitor wbc will add clinda await for finalization of the cx rest continue current mgmt most important is nutrition also rheumatology should have a look at the patient
--- NOTE | 2018-03-22 17:08 | CON.GI ---
Consult Consult Specialty:: GI Reason for Consultation:: mouth and perianal ulcers. - History of Present Illness History of Present Illness: Chart reviewed. H&P, ED notes noted. per initial intake: 62 y/o F presents with painful ulcers in her mouth and rectum. Patient says the ulcers began in her mouth since August as a single ulcer and have been worsening since. Patient has had increasing mouth pain for the past 2 weeks accompanied with dizziness and inability to speak. She says she has lost 15lbs over the past 5 weeks. Patient was last able to communicate during the evening prior at 8pm with her daughter. The following morning, her pain had increased to the point where patient was only able to grunt and moan. She was seen in the [facility] ED one month ago for these same symptoms and was diagnosed with Viral syndrome and was discharged with Lidocaine mouth wash. At the time of this encounter, the pt is in mild distress from oral pain. Unable to speak. Communicates via pen and paper and Yes/No answers. Reports no history of chronic GI issues in the past. No family history of IBD. EGD 2 years go was normal. Never had colonsocopy. Reports no melena, hematochezia, or mucous in stool. On Methotrexate for [address] A/P/C W/O positive for cholelithiasis. - History Source History Provided By: Patient, Medical Record - Smoking History Smoking history: Current every day smoker Have you smoked in the past 12 months: Yes Home Medications - Allergies Allergies/Adverse Reactions: Allergies Allergy/AdvReac Type Severity Reaction Status Date / Time No Allergy Information Allergy Verified 03/21/18 15:03 Available - Home Medications Home Medications: Ambulatory Orders Unobtainable 03/21/18 Family Disease History - Family Disease History Family History: Unremarkable Review of Systems Findings/Remarks: as per HPI, H&P, ED Physical Exam-GI Vital Signs: Vital Signs Temperature 99.5 F 03/22/18 13:45 Pulse Rate 105 H 03/22/18 13:45 Respiratory Rate 20 03/22/18 13:45 Blood Pressure 133/63 03/22/18 13:45 O2 Sat by Pulse Oximetry (%) 97 03/22/18 09:00 Constitutional: Yes: Mild Distress Eyes: Yes: Conjunctiva Clear HENT: Yes: Other (painful oral ulcers with dry blood at lips.) Cardiovascular: Yes: Regular Rate and Rhythm Respiratory: Yes: Regular Gastrointestinal Inspection: No: Ascites, Distention ...Auscultate: Yes: Normoactive Bowel Sounds ...Palpate: Yes: Soft. No: Firm/Rigid, Guarding, Mass, Tenderness, Tenderness, Epigastium Neurological: Yes: Alert, Oriented Labs: CBC, BMP 03/22/18 05:30 03/22/18 05:30 INR, PTT INR 1.19 (0.83-1.09) H 03/21/18 16:50 Laboratory Last Values WBC 1.0 K/mm3 (4.0-10.0) L* 03/22/18 05:30 RBC 2.92 M/mm3 (3.60-5.2) L 03/22/18 05:30 Hgb 9.2 GM/dL (10.7-15.3) L 03/22/18 05:30 Hct 27.8 % (32.4-45.2) L 03/22/18 05:30 MCV 95.2 fl (80-96) 03/22/18 05:30 MCH 31.5 pg (25.7-33.7) 03/22/18 05:30 MCHC 33.1 g/dl (32.0-36.0) 03/22/18 05:30 RDW 18.7 % (11.6-15.6) H 03/22/18 05:30 Plt Count 183 K/MM3 (134-434) D 03/22/18 05:30 MPV 9.2 fl (7.5-11.1) 03/22/18 05:30 Absolute Neuts (auto) 0.4 # 03/22/18 05:30 Total Counted 100 03/21/18 17:24 Neutrophils % 43.2 % (42.8-82.8) 03/22/18 05:30 Neutrophils % (Manual) 47.1 % (42.8-82.8) D 03/22/18 05:30 Band Neutrophils % 4.8 % 03/22/18 05:30 Lymphocytes % 47.8 % (8-40) H 03/22/18 05:30 Lymphocytes % (Manual) 40.4 % (8-40) H D 03/22/18 05:30 Monocytes % 8.3 % (3.8-10.2) 03/22/18 05:30 Monocytes % (Manual) 8 % (3.8-10.2) 03/22/18 05:30 Eosinophils % 0.2 % (0-4.5) 03/22/18 05:30 Eosinophils % (Manual) 0.0 % (0-4.5) 03/22/18 05:30 Basophils % 0.5 % (0-2.0) 03/22/18 05:30 Basophils % (Manual) 0.0 % (0-2.0) 03/22/18 05:30 Myelocytes % (Man) 0 % (0-2) 03/22/18 05:30 Promyelocytes % (Man) 0 % (0-2) 03/22/18 05:30 Blast Cells % (Manual) 0 % (0-0) 03/22/18 05:30 Nucleated RBC % 0 % (0-0) 03/22/18 05:30 Metamyelocytes 0 % (0-2) 03/22/18 05:30 Differential Comment Man diff performed 03/21/18 17:24 Hypochromia 0 03/22/18 05:30 Platelet Estimate Normal 03/22/18 05:30 Platelet Comment 03/21/18 17:24 Polychromasia 0 03/22/18 05:30 Poikilocytosis 0 03/22/18 05:30 Anisocytosis 1+ 03/22/18 05:30 Microcytosis 0 03/22/18 05:30 Macrocytosis 1+ 03/22/18 05:30 Ovalocytes 1+ 03/22/18 05:30 Retic Count 0.79 % (0.5-1.5) 03/22/18 05:30 PT with INR 13.40 SEC (9.7-13.0) H 03/21/18 16:50 INR 1.19 (0.83-1.09) H 03/21/18 16:50 PTT (Actin FS) 28.4 SECONDS (25.2-36.5) 03/21/18 16:50 VBG pH 7.49 (7.32-7.42) H 03/21/18 16:50 POC VBG pCO2 36.1 mmHg (38-52) L 03/21/18 16:50 POC VBG pO2 55.6 mmHg (28-48) H 03/21/18 16:50 Mixed VBG HCO3 27.2 meq/L (19-25) H 03/21/18 16:50 Sodium 148 mmol/L (136-145) H 03/22/18 05:30 Potassium 3.1 mmol/L (3.5-5.1) L 03/22/18 05:30 Chloride 113 mmol/L (98-107) H 03/22/18 05:30 Carbon Dioxide 28 mmol/L (21-32) 03/22/18 05:30 Anion Gap 7 (8-16) L 03/22/18 05:30 BUN 31 mg/dL (7-18) H 03/22/18 05:30 Creatinine 1.2 mg/dL (0.55-1.02) H 03/22/18 05:30 Creat Clearance w eGFR 45.67 (>60) 03/22/18 05:30 Random Glucose 115 mg/dL (74-106) H 03/22/18 05:30 Lactic Acid 1.8 mmol/L (0.0-2.0) 03/21/18 18:00 Calcium 9.3 mg/dL (8.5-10.1) 03/22/18 05:30 Phosphorus 2.3 mg/dL (2.5-4.9) L 03/22/18 05:30 Magnesium 2.7 mg/dL (1.8-2.4) H 03/22/18 05:30 Total Bilirubin 1.0 mg/dL (0.2-1.0) 03/22/18 05:30 AST 33 U/L (15-37) 03/22/18 05:30 ALT 56 U/L (12-78) 03/22/18 05:30 Alkaline Phosphatase 78 U/L (45-117) D 03/22/18 05:30 Troponin I 0.05 ng/ml (0.00-0.05) 03/21/18 16:50 Total Protein 6.5 g/dl (6.4-8.2) 03/22/18 05:30 Albumin 2.9 g/dl (3.4-5.0) L 03/22/18 05:30 Urine Color Shaneka 03/21/18 18:33 Urine Appearance Slcloudy 03/21/18 18:33 Urine pH 5.0 (5.0-8.0) 03/21/18 18:33 Ur Specific Bluebell 1.017 (1.001-1.035) 03/21/18 18:33 Urine Protein 1+ (NEGATIVE) H 03/21/18 18:33 Urine Glucose (UA) Negative (NEGATIVE) 03/21/18 18:33 Urine Ketones Negative (NEGATIVE) 03/21/18 18: Urine Blood Negative (NEGATIVE) 03/21/18 18: Urine Nitrite Negative (NEGATIVE) 03/21/18 18: Urine Bilirubin Negative (<2.0 mg/dL) 03/21/18 18:33 Urine Urobilinogen 4.0 e.u/dl mg/dL (0.2-1.0) H 03/21/18 18:33 Ur Leukocyte Esterase Negative (NEGATIVE) 03/21/18 18:33 Urine WBC (Auto) 5 /hpf (3-5) 03/21/18 18:33 Urine RBC (Auto) 2 /hpf (0-3) 03/21/18 18:33 Ur Epithelial Cells Rare /HPF (FEW) 03/21/18 18:33 Urine Bacteria Rare /hpf (NONE SEEN) 03/21/18 18:33 Hyaline Casts 31 /lpf 03/21/18 18:33 Urine Mucus Rare 03/21/18 18:33 HIV 1&2 Antibody Screen Negative 03/21/18 17:04 HIV P24 Antigen Negative 03/21/18 17:04 Blood Type O POSITIVE 03/22/18 05:30 Antibody Screen Negative 03/21/18 16:50 Imaging - Results Cat Scan: Report Reviewed Problem List - Problems (1) Stomatitis Code(s): K12.1 - OTHER FORMS OF STOMATITIS (2) Stomatitis, ulcerative Code(s): K12.1 - OTHER FORMS OF STOMATITIS (3) Neutropenic fever Code(s): D70.9 - NEUTROPENIA, UNSPECIFIED; R50.81 - FEVER PRESENTING WITH CONDITIONS CLASSIFIED ELSEWHERE Assessment/Plan A 62F with stomatitis, perianal ulcers and leukopenia. Other GI-related history , or symptoms reported. Suspect Methotrexate toxicity. R/O IBD. Opportunistic infection. ID and ED assessments noted. Continue current care and management. Magic mouth wash, Benzocane, Abx, folate. The pt will need CT A/P with contrast when able to take po.
[2018-03-22] MEDS: CEFEPIME HCL/D5W 1 GM/50 ML BAG IVPB SCH (17:13)
[2018-03-22] MEDS: MAG HYDROX/ALH/SMC/DPHA/LIDO 240 ML MOUTHWASH MM SCH ×2 (18:49→21:04)
[2018-03-22] MEDS ORDERED: PT OWN MED DRAWER 7, Y5N ONE (19:42)
[2018-03-22] MEDS: LIDOCAINE VISCOUS 2% ORAL/TOP 20 ML UNIT-DOSE CUP MM PRN (20:12)
[2018-03-22] MEDS: WITCH HAZEL 50% (TUCKS) 40 PAD/JAR PAD TP SCH (21:05)
[2018-03-23] MEDS: MORPHINE SULFATE 2 MG/ML VIAL IVPUSH PRN ×3 (00:56→21:47)
[2018-03-23] MEDS: MAG HYDROX/ALH/SMC/DPHA/LIDO 240 ML MOUTHWASH MM SCH ×6 (01:00→21:27)
[2018-03-23] MEDS: CEFEPIME HCL/D5W 1 GM/50 ML BAG IVPB SCH ×3 (01:01→17:37)
[2018-03-23] MEDS: CLINDAMYCIN 300 MG PREMIX IVPB 300 MG/50 ML BAG IVPB SCH ×3 (02:09→17:37)
--- NOTE | 2018-03-23 04:05 | PN ---
Physical Exam: SUBJECTIVE: Patient seen and examined at bed side , no acute events over night , sitting in bed with serous bleeding come out of her mouth ulcer . OBJECTIVE: Vital Signs Period Temp Pulse Resp BP Sys/Muniz Pulse Ox Last 24 Hr 98.8 F-99.7 F 98-108 18-20 107-133/58-71 97-98 GENERAL: AAOx3 in NAD HEAD: NC/AT EYES: EOMI, Conjunctiva clear, sclera anicteric ENT: moist mucous membrane , mouth ulcer , stomatitis NECK: Supple, no JVD LUNGS: CTA B/L, no crackles no wheezing no accessory muscle use. HEART: RRR, NSR, normal s1, s2, murmur no M/R/G ABDOMEN: Soft, ND, NT, +BS 4 Q, no CVA Tenderness, rectal ulcer LOWER EXTREMITIES: no edema, +2DP pulse, NEUROLOGICAL: No focal deficit. Normal speech. gait not observed. PSYCHIATRIC: Cooperative. Good eye contact. Appropriate mood and affect. SKIN: Warm, dry,Ulcers between the gluteal folds and external hemorrhoids. Laboratory Results - last 24 hr 03/22/18 03/22/18 03/22/18 05:30 05:30 05:30 WBC 1.0 L* RBC 2.92 L Hgb 9.2 L Hct 27.8 L MCV 95.2 MCH 31.5 MCHC 33.1 RDW 18.7 H Plt Count 183 D MPV 9.2 Absolute Neuts (auto) 0.4 Neutrophils % 43.2 Neutrophils % (Manual) 47.1 D Band Neutrophils % 4.8 Lymphocytes % 47.8 H Lymphocytes % (Manual) 40.4 H D Monocytes % 8.3 Monocytes % (Manual) 8 Eosinophils % 0.2 Eosinophils % (Manual) 0.0 Basophils % 0.5 Basophils % (Manual) 0.0 Myelocytes % (Man) 0 Promyelocytes % (Man) 0 Blast Cells % (Manual) 0 Nucleated RBC % 0 Metamyelocytes 0 Hypochromia 0 Platelet Estimate Normal Polychromasia 0 Poikilocytosis 0 Anisocytosis 1+ Microcytosis 0 Macrocytosis 1+ Ovalocytes 1+ Retic Count Sodium 148 H Potassium 3.1 L Chloride 113 H Carbon Dioxide 28 Anion Gap 7 L BUN 31 H Creatinine 1.2 H Creat Clearance w eGFR 45.67 POC Glucometer Random Glucose 115 H Calcium 9.3 Phosphorus 2.3 L Magnesium 2.7 H Total Bilirubin 1.0 AST 33 ALT 56 Alkaline Phosphatase 78 D Total Protein 6.5 Albumin 2.9 L Blood Type O POSITIVE 03/22/18 03/22/18 05:30 17:16 WBC RBC Hgb Hct MCV MCH MCHC RDW Plt Count MPV Absolute Neuts (auto) Neutrophils % Neutrophils % (Manual) Band Neutrophils % Lymphocytes % Lymphocytes % (Manual) Monocytes % Monocytes % (Manual) Eosinophils % Eosinophils % (Manual) Basophils % Basophils % (Manual) Myelocytes % (Man) Promyelocytes % (Man) Blast Cells % (Manual) Nucleated RBC % Metamyelocytes Hypochromia Platelet Estimate Polychromasia Poikilocytosis Anisocytosis Microcytosis Macrocytosis Ovalocytes Retic Count 0.79 Sodium Potassium Chloride Carbon Dioxide Anion Gap BUN Creatinine Creat Clearance w eGFR POC Glucometer 121 Random Glucose Calcium Phosphorus Magnesium Total Bilirubin AST ALT Alkaline Phosphatase Total Protein Albumin Blood Type Active Medications Generic Name Dose Route Start Last Admin Trade Name Freq PRN Reason Stop Dose Admin Acetaminophen 650 mg 03/22/18 01:28 Tylenol - PO Q4H PRN PAIN LEVEL 1 - 3 Heparin Sodium (Porcine) 5,000 unit 03/22/18 06:45 03/22/18 21:04 Heparin - SQ 5,000 unit TID FLAVIO Administration Sodium Chloride 1,000 mls @ 42 mls/hr 03/22/18 07:30 03/22/18 10:15 1/2 Normal Saline IV 42 mls/hr ASDIR FLAVIO Administration Cefepime HCl 1 gm in 50 mls @ 100 mls/hr 03/22/18 18:00 03/23/18 01:01 Maxipime 1 Gm Premix Ivpb IVPB 100 mls/hr Q8H-IV FLAVIO Administration Protocol Clindamycin Phosphate 300 mg in 50 mls @ 104 mls/hr 03/23/18 02:00 03/23/18 02:09 Cleocin 300 Mg Premix Ivpb IVPB 104 mls/hr Q8H-IV FLAVIO Administration Protocol Lactobacillus Acidophilus 1 tab 03/22/18 10:00 03/22/18 21:04 Bacid - PO 1 tab BID FLAVIO Administration Lidocaine HCl 20 ml 03/22/18 14:00 03/22/18 20:12 Xylocaine 2% Viscous Oral - MM 20 ml TID PRN Administration ORAL PAIN/MOUTH SORES Lidocaine/Aluminum/Magnesium/Simeth 5 ml 03/22/18 18:00 03/23/18 01:00 Magic Mouthwash *Sjr Formula* - MM 5 ml Q4HPO FLAVIO Administration Morphine Sulfate 2 mg 03/22/18 03:09 03/23/18 00:56 Morphine Sulfate IVPUSH 2 mg Q4H PRN Administration PAIN LEVEL 7 - 10 Witch Chikis/Glycerin 1 pad 03/22/18 22:00 03/22/18 21:05 Tucks Pads - TP 1 pad BID FLAVIO Administration CBC, BMP 03/22/18 05:30 03/22/18 05:30 ASSESSMENT/PLAN: 62 y/o F presents with painful ulcers in her mouth and rectum was found to have neutropenic fever and admitted to Obs for sepsis. 1. Sepsis - Temp 103.1 F, HR 90, WBC 0.9 - Unclear source of infection - CXR and UA noted above, Blood and urine cx pending - Lactic acid 2.2 --> 1.8 - Continue Vancomycin, Cefepime, Acyclovir - D'C'ed IV NS; Started on IV 1/2 NS @ 42mls - Swab ulcers in Oropharynx and Gluteal folds for cultures - ID (Dr. Lewis) consulted - Rheumatolgy (Dr. Canas) consulted - Ophthamology (Dr. Harrison) Consulted 2. Hypokalemia - Repeat K+ 3.1 - Ordered 40 mEq KPhos x 2 doses 3. HEATHER - BUN 33, Cr 1.7 - Continue IV NS - Nephrology (Dr. Carlin) consulted 4. Anemia - Unclear Etiology - Serial Stool Guaiacs, Reticulocyte count, Iron studies 5. FEN - 1/2 Normal Saline @ 42 mls/hr IV - Ordered 40 mEq KPhos x 2 doses - Full Liquid diet, Ensure ordered 6. PPX - DVT: Heparin 5000u AQ TID Visit type - Emergency Visit Emergency Visit: Yes ED Registration Date: 03/22/18 Care time: The patient presented to the Emergency Department on the above date and was hospitalized for further evaluation of their emergent condition. - New Patient This patient is new to me today: No - Critical Care Critical Care patient: No
[2018-03-23] MEDS: HEPARIN NA (PORCINE) 5,000 UNITS/ML 1ML VIAL SQ SCH ×3 (05:15→21:26)
[2018-03-23] MEDS: LIDOCAINE VISCOUS 2% ORAL/TOP 20 ML UNIT-DOSE CUP MM PRN ×3 (05:15→19:59)
[2018-03-23] MEDS ORDERED: PT OWN MED DRAWER 7, Y5N ONE ×7 (05:29→21:07)
--- NOTE | 2018-03-23 08:34 | PN ---
Progress Note, Physician History of Present Illness: feeling better mouth hurting less remained afebrile - Current Medication List Current Medications: Active Medications Acetaminophen (Tylenol -) 650 mg PO Q4H PRN PRN Reason: PAIN LEVEL 1 - 3 Heparin Sodium (Porcine) (Heparin -) 5,000 unit SQ TID [facility] [place] Last Admin: 03/23/18 05:15 Dose: 5,000 unit Sodium Chloride (1/2 Normal Saline) 1,000 mls @ 42 mls/hr IV ASDIR FLAVIO Last Admin: 03/22/18 10:15 Dose: 42 mls/hr Cefepime HCl (Maxipime 1 Gm Premix Ivpb) 1 gm in 50 mls @ 100 mls/hr IVPB Q8H- IV FLAVIO; Protocol Last Admin: 03/23/18 01:01 Dose: 100 mls/hr Clindamycin Phosphate (Cleocin 300 Mg Premix Ivpb) 300 mg in 50 mls @ 104 mls/ hr IVPB Q8H-IV FLAVIO; Protocol Last Admin: 03/23/18 02:09 Dose: 104 mls/hr Lactobacillus Acidophilus (Bacid -) 1 tab PO BID [facility] [place] Last Admin: 03/22/18 21:04 Dose: 1 tab Lidocaine HCl (Xylocaine 2% Viscous Oral -) 20 ml MM TID PRN PRN Reason: ORAL PAIN/MOUTH SORES Last Admin: 03/23/18 05:15 Dose: 20 ml Lidocaine/Aluminum/Magnesium/Simeth (Magic Mouthwash *Sjr Formula* -) 5 ml MM Q4HPO [facility] Last Admin: 03/23/18 05:16 Dose: 5 ml Morphine Sulfate (Morphine Sulfate) 2 mg IVPUSH Q4H PRN PRN Reason: PAIN LEVEL 7 - 10 Last Admin: 03/23/18 05:15 Dose: 2 mg Witch Chikis/Glycerin (Tucks Pads -) 1 pad TP BID [facility] [place] Last Admin: 03/22/18 21:05 Dose: 1 pad - Objective Vital Signs: Vital Signs Temperature 98.8 F 03/22/18 20:31 Pulse Rate 99 H 03/22/18 20:31 Respiratory Rate 18 03/22/18 20:31 Blood Pressure 133/71 03/22/18 20:31 O2 Sat by Pulse Oximetry (%) 98 03/22/18 22:00 Constitutional: Yes: No Distress, Calm HENT: Yes: Other (ulcers in the mouth) Cardiovascular: Yes: Regular Rate and Rhythm Respiratory: Yes: Regular, CTA Bilaterally Gastrointestinal: Yes: Normal Bowel Sounds, Soft Musculoskeletal: Yes: WNL Extremities: Yes: WNL Neurological: Yes: Alert, Oriented Psychiatric: Yes: Alert, Oriented Labs: CBC, BMP 03/22/18 05:30 03/22/18 05:30 INR, PTT INR 1.19 (0.83-1.09) H 03/21/18 16:50 Assessment/Plan Problem List - Problems (1) Stomatitis Code(s): K12.1 - OTHER FORMS OF STOMATITIS (2) Stomatitis, ulcerative Code(s): K12.1 - OTHER FORMS OF STOMATITIS (3) Neutropenic fever Code(s): D70.9 - NEUTROPENIA, UNSPECIFIED; R50.81 - FEVER PRESENTING WITH CONDITIONS CLASSIFIED ELSEWHERE 4 gm positive bacteremia Assessment/Plan A 62F with stomatitis, perianal ulcers and leukopenia coming in with fever and inability to eat also having blood cx positive which i think might be a contaminant continue iv abx await for cx reports repeat blood cx ordered for tomorrow await rheumatology input rest as per the team
[2018-03-23] MEDS: SODIUM CHLORIDE 0.45% 1,000 ML IV SCH (09:39)
[2018-03-23] MEDS: LACTOBACILLUS ACIDOPHILUS 1 TABLET PO SCH ×2 (09:39→21:26)
[2018-03-23] MEDS: WITCH HAZEL 50% (TUCKS) 40 PAD/JAR PAD TP SCH ×2 (09:39→21:28)
--- NOTE | 2018-03-23 13:03 | PN ---
Progress Note (short form) - Note Progress Note: Progress Note: This is a 62 yr old female with Rheumatoid arthritis , hypothyroidism who presents with painful ulcers in her mouth and rectum. She has severe mucositis in her mouth. The daughter says that this started around February 25 worsened in the past 2 -4 weeks. She takes Methotrexate thrice a week for her rheumatoid arthritis and she stopped it 2 weeks ago. She also was recently prescribed prednsione by her adding machine operator. She is now writing and describing ehr symptoms. She has no prior h/o of malignancy. She reports no recent history of abx. The only meds which she was taking were losartan and carvedilol, synthyroid. Vital Signs Period Temp Pulse Resp BP Sys/Muniz Pulse Ox Last 24 Hr 98.8 F-99.5 F 98-105 18-20 111-133/63-71 98 AFVSS HEENT: TONY, EOM Intact Cor: RSR, No murmurs, No gallops Lungs: Clear to P&A.scattered rhonchi Abd: Soft, Normal bowel sounds, No organomegaly Ext:no edema Skin: No rashes, Integument intact Active Medications Generic Name Dose Route Start Last Admin Trade Name Freq PRN Reason Stop Dose Admin Acetaminophen 650 mg 03/22/18 01:28 Tylenol - PO Q4H PRN PAIN LEVEL 1 - 3 Heparin Sodium (Porcine) 5,000 unit 03/22/18 06:45 03/23/18 05:15 Heparin - SQ 5,000 unit TID FLAVIO Administration Sodium Chloride 1,000 mls @ 42 mls/hr 03/22/18 07:30 03/23/18 09:39 1/2 Normal Saline IV Not Given ASDIR FLAVIO Cefepime HCl 1 gm in 50 mls @ 100 mls/hr 03/22/18 18:00 03/23/18 09:38 Maxipime 1 Gm Premix Ivpb IVPB 100 mls/hr Q8H-IV FLAVIO Administration Protocol Clindamycin Phosphate 300 mg in 50 mls @ 104 mls/hr 03/23/18 02:00 03/23/18 09:38 Cleocin 300 Mg Premix Ivpb IVPB 104 mls/hr Q8H-IV FLAVIO Administration Protocol Lactobacillus Acidophilus 1 tab 03/22/18 10:00 03/23/18 09:39 Bacid - PO Not Given BID FLAVIO Lidocaine HCl 20 ml 03/22/18 14:00 03/23/18 09:39 Xylocaine 2% Viscous Oral - MM 20 ml TID PRN Administration ORAL PAIN/MOUTH SORES Lidocaine/Aluminum/Magnesium/Simeth 5 ml 03/22/18 18:00 03/23/18 09:38 Magic Mouthwash *Sjr Formula* - MM 5 ml Q4HPO FLAVIO Administration Morphine Sulfate 2 mg 03/22/18 03:09 03/23/18 05:15 Morphine Sulfate IVPUSH 2 mg Q4H PRN Administration PAIN LEVEL 7 - 10 Witch Chikis/Glycerin 1 pad 03/22/18 22:00 03/23/18 09:39 Tucks Pads - TP 1 pad BID FLAVIO Administration CBC, BMP 03/22/18 05:30 03/22/18 05:30 Severe neutropenia with Grade 3 mucositis- likely MTX toxicity. -start leucovorin (rescue) today, and can change to folic acid in 2 or 3 days -Folate is low -Other Ddx inc. T-LGL, Viral induced neutropenia [Check CMV PCR], Feltys syndrome -She will likley need a BM biopsy during the week -f/v RF, DRE, Flow, -I dont think we should give G-CSF before a BM biopsy as it might alter the results and make it difficult to differentiate a malignant from a non malignant process -ID consult to r/o HSV. Other Ddx could be CMV -Will continue to follow
[2018-03-23] MEDS: LEUCOVORIN CALCIUM 5 MG TABLET PO SCH ×2 (14:18→21:26)
--- NOTE | 2018-03-23 16:04 | PN ---
Teaching Attending Note Name of Resident: Tico Sneed ATTENDING PHYSICIAN STATEMENT I saw and evaluated the patient. I reviewed the resident's note and discussed the case with the resident. I agree with the resident's findings and plan as documented. SUBJECTIVE: OBJECTIVE: Vital Signs Temperature 98.4 F 03/23/18 14:00 Pulse Rate 104 H 03/23/18 14:00 Respiratory Rate 21 03/23/18 14:00 Blood Pressure 116/70 03/23/18 14:00 O2 Sat by Pulse Oximetry (%) 97 03/23/18 10:00 CBCD WBC 1.0 K/mm3 (4.0-10.0) L* 03/22/18 05:30 RBC 2.92 M/mm3 (3.60-5.2) L 03/22/18 05:30 Hgb 9.2 GM/dL (10.7-15.3) L 03/22/18 05:30 Hct 27.8 % (32.4-45.2) L 03/22/18 05:30 MCV 95.2 fl (80-96) 03/22/18 05:30 MCHC 33.1 g/dl (32.0-36.0) 03/22/18 05:30 RDW 18.7 % (11.6-15.6) H 03/22/18 05:30 Plt Count 183 K/MM3 (134-434) D 03/22/18 05:30 MPV 9.2 fl (7.5-11.1) 03/22/18 05:30 CMP Sodium 148 mmol/L (136-145) H 03/22/18 05:30 Potassium 3.1 mmol/L (3.5-5.1) L 03/22/18 05:30 Chloride 113 mmol/L (98-107) H 03/22/18 05:30 Carbon Dioxide 28 mmol/L (21-32) 03/22/18 05:30 Anion Gap 7 (8-16) L 03/22/18 05:30 BUN 31 mg/dL (7-18) H 03/22/18 05:30 Creatinine 1.2 mg/dL (0.55-1.02) H 03/22/18 05:30 Creat Clearance w eGFR 45.67 (>60) 03/22/18 05:30 Random Glucose 115 mg/dL (74-106) H 03/22/18 05:30 Calcium 9.3 mg/dL (8.5-10.1) 03/22/18 05:30 Total Bilirubin 1.0 mg/dL (0.2-1.0) 03/22/18 05:30 AST 33 U/L (15-37) 03/22/18 05:30 ALT 56 U/L (12-78) 03/22/18 05:30 Alkaline Phosphatase 78 U/L (45-117) D 03/22/18 05:30 Total Protein 6.5 g/dl (6.4-8.2) 03/22/18 05:30 Albumin 2.9 g/dl (3.4-5.0) L 03/22/18 05:30 CARDIAC ENZYMES Troponin I 0.05 ng/ml (0.00-0.05) 03/21/18 16:50 Current Medications Generic Name Dose Route Start Last Admin Trade Name Freq PRN Reason Stop Dose Admin Acetaminophen 650 mg 03/22/18 01:28 Tylenol - PO Q4H PRN PAIN LEVEL 1 - 3 Heparin Sodium (Porcine) 5,000 unit 03/22/18 06:45 03/23/18 14:18 Heparin - SQ 5,000 unit TID FLAVIO Administration Sodium Chloride 1,000 mls @ 42 mls/hr 03/22/18 07:30 03/23/18 09:39 1/2 Normal Saline IV Not Given ASDIR FLAVIO Cefepime HCl 1 gm in 50 mls @ 100 mls/hr 03/22/18 18:00 03/23/18 09:38 Maxipime 1 Gm Premix Ivpb IVPB 100 mls/hr Q8H-IV FLAVIO Administration Protocol Clindamycin Phosphate 300 mg in 50 mls @ 104 mls/hr 03/23/18 02:00 03/23/18 09:38 Cleocin 300 Mg Premix Ivpb IVPB 104 mls/hr Q8H-IV FLAVIO Administration Protocol Lactobacillus Acidophilus 1 tab 03/22/18 10:00 03/23/18 09:39 Bacid - PO Not Given BID FLAVIO Leucovorin Calcium 10 mg 03/23/18 13:15 03/23/18 14:18 Leucovorin - PO 10 mg BID FLAVIO Administration Lidocaine HCl 20 ml 03/22/18 14:00 03/23/18 09:39 Xylocaine 2% Viscous Oral - MM 20 ml TID PRN Administration ORAL PAIN/MOUTH SORES Lidocaine/Aluminum/Magnesium/Simeth 5 ml 03/22/18 18:00 03/23/18 14:18 Magic Mouthwash *Sjr Formula* - MM 5 ml Q4HPO FLAVIO Administration Morphine Sulfate 2 mg 03/22/18 03:09 03/23/18 05:15 Morphine Sulfate IVPUSH 2 mg Q4H PRN Administration PAIN LEVEL 7 - 10 Witch Chikis/Glycerin 1 pad 03/22/18 22:00 03/23/18 09:39 Tucks Pads - TP 1 pad BID FLAVIO Administration Home Medications Medication Instructions Recorded Unobtainable 03/21/18 Microbiology 03/22/18 10:30 Face Gram Stain - Final 03/22/18 10:30 Face Wound Culture - Preliminary 03/22/18 10:30 Buttock - Left Gram Stain - Final 03/22/18 10:30 Buttock - Left Wound Culture - Preliminary Lactose Fermenting Neg Bacilli Pending Organism 03/21/18 18:33 Urine - Urine Clean Catch Urine Culture - Final NO GROWTH OBTAINED 03/21/18 16:45 Blood - Peripheral Venous Blood Culture - Preliminary Staphylococcus Coagulase Neg Alpha Hemolytic Streptococcus 03/21/18 16:50 Blood - Peripheral Venous Blood Culture - Preliminary NO GROWTH OBTAINED AFTER 24 HOURS, INCUBATION TO CONTINUE FOR 4 DAYS. Laboratory Tests 03/22/18 03/23/18 03/23/18 05:30 06:00 06:00 Sodium 148 H Potassium 3.1 L Hemoglobin A1c % Iron Pending TIBC Pending Iron Saturation Pending Ferritin 1265.9 H Serum Folate 3 L 03/23/18 06:00 Sodium Potassium Hemoglobin A1c % 6.4 H Iron TIBC Iron Saturation Ferritin Serum Folate Folic acid level 3.0 ASSESSMENT AND PLAN: Patient is a 62 y/o Female presented to ED. with painful ulcers in her mouth and rectum. Patient says the ulcers began in her mouth since August as a single ulcer and have been worsening ever since.Patient has # Acute stomatitis, perianal ulcers and leukopenia. Most likely s/e of MTX or stopped taking Folic acid while taking MTx. As per patient she missed some folic acid doses .Patient is unable to eat or drink due to her pain. GI /hemonc on the case. Magic mouth wash ordered. # Neutropenia r/o malignancy, also s/e of MTX can cause neutropenia. wound culture growing gram negative bacilli on Cefepine continue # folic acid deficeincy onc started the patient on Leucovorin # Hypokalemia replete repeat labs for for am , check mag DVT Px: Heparin
[2018-03-23 17:50] LABS: BASO % 0.4 % (0-2.0); EOS % 0.9 % (0-4.5); HEMATOCRIT 26.4 % (32.4-45.2); HEMOGLOBIN 8.6 GM/dL (10.7-15.3); LYMPH % 54.8 % (8-40); MCH 31.5 pg (25.7-33.7); MCHC 32.6 g/dl (32.0-36.0); MEAN CELL VOLUME 96.5 fl (80-96); MEAN PLT VOLUME 10.1 fl (7.5-11.1); MONO % 9.5 % (3.8-10.2); NEUT % 34.4 % (42.8-82.8); PLATELET COUNT 122 K/MM3 (134-434); RBC 2.74 M/mm3 (3.60-5.2); RDW 19.1 % (11.6-15.6)
[2018-03-23 18:21] LABS: ALBUMIN 2.7 g/dl (3.4-5.0); ALK PHOS 81 U/L (45-117); ANION GAP 8 (8-16); BILIRUBIN,TOTAL 1.4 mg/dL (0.2-1.0); BLOOD UREA NITROGEN 24 mg/dL (7-18); CALCIUM 9.2 mg/dL (8.5-10.1); CHLORIDE 114 mmol/L (98-107); CO2 29 mmol/L (21-32); CREATININE 1.1 mg/dL (0.55-1.02); GLUCOSE,RANDOM 106 mg/dL (74-106); POTASSIUM 3.8 mmol/L (3.5-5.1); SGOT/AST 21 U/L (15-37); SGPT/ALT 40 U/L (12-78); SODIUM 151 mmol/L (136-145); TOT PROT 6.7 g/dl (6.4-8.2)
[2018-03-23 18:44] LABS: ANISOCYTOSIS 2+; MACROCYTOSIS 2+; PLATELET ESTIMATE SLT DECREASE
[2018-03-23] MEDS: D5-1/2NS+30 MEQ KCL - 30 MEQ/1,000 ML INFUS.BAG IV SCH (21:27)
[2018-03-24] MEDS ORDERED: PT OWN MED DRAWER 7, Y5N ONE ×6 (01:14→22:40)
[2018-03-24] MEDS: CLINDAMYCIN 300 MG PREMIX IVPB 300 MG/50 ML BAG IVPB SCH ×3 (01:40→18:54)
[2018-03-24] MEDS: MAG HYDROX/ALH/SMC/DPHA/LIDO 240 ML MOUTHWASH MM SCH ×6 (01:49→22:13)
[2018-03-24] MEDS: CEFEPIME HCL/D5W 1 GM/50 ML BAG IVPB SCH ×3 (02:30→18:54)
[2018-03-24] MEDS: HEPARIN NA (PORCINE) 5,000 UNITS/ML 1ML VIAL SQ SCH ×3 (05:36→22:08)
[2018-03-24] MEDS: LIDOCAINE VISCOUS 2% ORAL/TOP 20 ML UNIT-DOSE CUP MM PRN ×3 (05:37→22:14)
[2018-03-24] MEDS: ACETAMINOPHEN 325 MG TABLET (FP) PO PRN (05:39)
[2018-03-24 06:06] LABS: SERUM IRON SATURATION 68 % (15-55); TOTAL IRON BINDING CAPACITY 134 ug/dL (250-450); UIBC 43 ug/dL (118-369)
[2018-03-24] MEDS: MORPHINE SULFATE 2 MG/ML VIAL IVPUSH PRN ×2 (06:23→11:47)
[2018-03-24 07:33] LABS: BASO % 0.7 % (0-2.0); EOS % 2.9 % (0-4.5); HEMATOCRIT 24.1 % (32.4-45.2); LYMPH % 61.2 % (8-40); MCH 31.7 pg (25.7-33.7); MCHC 33.1 g/dl (32.0-36.0); MEAN CELL VOLUME 95.8 fl (80-96); NEUT % 28.2 % (42.8-82.8); PLATELET COUNT 88 K/MM3 (134-434); RBC 2.52 M/mm3 (3.60-5.2); RDW 18.2 % (11.6-15.6)
[2018-03-24 07:50] LABS: WHITE BLOOD COUNT 0.6 K/mm3 (4.0-10.0)
[2018-03-24 07:52] LABS: CHLORIDE 114 mmol/L (98-107); POTASSIUM 3.6 mmol/L (3.5-5.1); SODIUM 148 mmol/L (136-145)
[2018-03-24 07:58] LABS: ALBUMIN 2.6 g/dl (3.4-5.0); ALK PHOS 97 U/L (45-117); ANION GAP 8 (8-16); BILIRUBIN,TOTAL 1.4 mg/dL (0.2-1.0); BLOOD UREA NITROGEN 21 mg/dL (7-18); CALCIUM 8.8 mg/dL (8.5-10.1); CO2 26 mmol/L (21-32); CREATININE 1.2 mg/dL (0.55-1.02); GLUCOSE,RANDOM 131 mg/dL (74-106); MAGNESIUM 2.4 mg/dL (1.8-2.4); PHOSPHOROUS 2.1 mg/dL (2.5-4.9); SGOT/AST 27 U/L (15-37); SGPT/ALT 38 U/L (12-78); TOT PROT 6.7 g/dl (6.4-8.2)
--- NOTE | 2018-03-24 08:40 | PN ---
Teaching Attending Note Name of Resident: Haylee Portillo ATTENDING PHYSICIAN STATEMENT I saw and evaluated the patient. I reviewed the resident's note and discussed the case with the resident. I agree with the resident's findings and plan as documented. SUBJECTIVE: OBJECTIVE: Vital Signs Temperature 100.0 F H 03/24/18 06:00 Pulse Rate 98 H 03/24/18 06:00 Respiratory Rate 20 03/24/18 06:00 Blood Pressure 121/51 03/24/18 06:00 O2 Sat by Pulse Oximetry (%) 98 03/23/18 21:00 CBCD WBC 0.6 K/mm3 (4.0-10.0) L* 03/24/18 06:30 RBC 2.52 M/mm3 (3.60-5.2) L 03/24/18 06:30 Hgb 8.0 GM/dL (10.7-15.3) L 03/24/18 06:30 Hct 24.1 % (32.4-45.2) L 03/24/18 06:30 MCV 95.8 fl (80-96) 03/24/18 06:30 MCHC 33.1 g/dl (32.0-36.0) 03/24/18 06:30 RDW 18.2 % (11.6-15.6) H 03/24/18 06:30 Plt Count 88 K/MM3 (134-434) L D 03/24/18 06:30 MPV 10.0 fl (7.5-11.1) 03/24/18 06:30 CMP Sodium 148 mmol/L (136-145) H 03/24/18 06:30 Potassium 3.6 mmol/L (3.5-5.1) 03/24/18 06:30 Chloride 114 mmol/L (98-107) H 03/24/18 06:30 Carbon Dioxide 26 mmol/L (21-32) 03/24/18 06:30 Anion Gap 8 (8-16) 03/24/18 06:30 BUN 21 mg/dL (7-18) H 03/24/18 06:30 Creatinine 1.2 mg/dL (0.55-1.02) H 03/24/18 06:30 Creat Clearance w eGFR 45.67 (>60) 03/24/18 06:30 Random Glucose 131 mg/dL (74-106) H 03/24/18 06:30 Calcium 8.8 mg/dL (8.5-10.1) 03/24/18 06:30 Total Bilirubin 1.4 mg/dL (0.2-1.0) H 03/24/18 06:30 AST 27 U/L (15-37) 03/24/18 06:30 ALT 38 U/L (12-78) 03/24/18 06:30 Alkaline Phosphatase 97 U/L (45-117) D 03/24/18 06:30 Total Protein 6.7 g/dl (6.4-8.2) 03/24/18 06:30 Albumin 2.6 g/dl (3.4-5.0) L 03/24/18 06:30 CARDIAC ENZYMES Troponin I 0.05 ng/ml (0.00-0.05) 03/21/18 16:50 Current Medications Generic Name Dose Route Start Last Admin Trade Name Freq PRN Reason Stop Dose Admin Acetaminophen 650 mg 03/22/18 01:28 03/24/18 05:39 Tylenol - PO 650 mg Q4H PRN Administration PAIN LEVEL 1 - 3 Heparin Sodium (Porcine) 5,000 unit 03/22/18 06:45 03/24/18 05:36 Heparin - SQ 5,000 unit TID FLAVIO Administration Cefepime HCl 1 gm in 50 mls @ 100 mls/hr 03/22/18 18:00 03/24/18 02:30 Maxipime 1 Gm Premix Ivpb IVPB 100 mls/hr Q8H-IV FLAVIO Administration Protocol Clindamycin Phosphate 300 mg in 50 mls @ 104 mls/hr 03/23/18 02:00 03/24/18 01:40 Cleocin 300 Mg Premix Ivpb IVPB 104 mls/hr Q8H-IV FLAVIO Administration Protocol Potassium Chloride/Dextrose/Sod Cl 30 meq in 1,000 mls @ 100 mls/hr 03/23/18 19:15 03/23/18 21:27 D5-1/2ns+30 Meq Kcl - IV 100 mls/hr ASDIR FLAVIO Administration Lactobacillus Acidophilus 1 tab 03/22/18 10:00 03/23/18 21:26 Bacid - PO 1 tab BID FLAVIO Administration Leucovorin Calcium 10 mg 03/23/18 13:15 03/23/18 21:26 Leucovorin - PO 10 mg BID FLAVIO Administration Lidocaine HCl 20 ml 03/22/18 14:00 03/24/18 05:37 Xylocaine 2% Viscous Oral - MM 20 ml TID PRN Administration ORAL PAIN/MOUTH SORES Lidocaine/Aluminum/Magnesium/Simeth 5 ml 03/22/18 18:00 03/24/18 05:37 Magic Mouthwash *Sjr Formula* - MM 5 ml Q4HPO FLAVIO Administration Morphine Sulfate 2 mg 03/22/18 03:09 03/24/18 06:23 Morphine Sulfate IVPUSH 2 mg Q4H PRN Administration PAIN LEVEL 7 - 10 Witch Chikis/Glycerin 1 pad 03/22/18 22:00 03/23/18 21:28 Tucks Pads - TP 1 pad BID FLAVIO Administration Home Medications Medication Instructions Recorded Unobtainable 03/21/18 Folic acid level 3.0 ASSESSMENT AND PLAN: Patient is a 62 y/o Female presented to ED. with painful ulcers in her mouth and rectum. Patient says the ulcers began in her mouth since August as a single ulcer and have been worsening ever since.Patient has # Acute stomatitis, perianal ulcers and leukopenia. Most likely s/e of MTX or stopped taking Folic acid while taking MTx. As per patient she missed some folic acid doses .Patient is unable to eat or drink due to her oral lesios hemonc consult appreciated . Magic mouth wash ordered. Picc line for am since patient is unable to eat or drink. as per Mat Huang to start folinic sq and leukovorin IV , patient continues to be neutropenic , if no response Bone Marrow then Neupogen as per DR. Rivero. # Neutropenia r/o malignancy, also s/e of MTX can cause neutropenia. wound culture growing gram negative bacilli on Cefepine continue # folic acid deficeincy onc started the patient on Leucovorin # Hypokalemia replete repeat labs for for am , check mag DVT Px: Heparin As per : ordered leucovorum 25 mg q 6h x 48 hours and sq folate. If no improvement in hemogram , will consider marrow and thereafter neupogen.
[2018-03-24] MEDS: LACTOBACILLUS ACIDOPHILUS 1 TABLET PO SCH ×2 (11:19→22:08)
[2018-03-24] MEDS: LEUCOVORIN CALCIUM 5 MG TABLET PO SCH ×2 (11:19→20:11)
[2018-03-24] MEDS: WITCH HAZEL 50% (TUCKS) 40 PAD/JAR PAD TP SCH ×2 (11:20→22:14)
[2018-03-24 11:46] LABS: ANISOCYTOSIS 1+; MACROCYTOSIS 1+; PLATELET ESTIMATE DECREASED
--- NOTE | 2018-03-24 14:22 | PN ---
Progress Note, Physician History of Present Illness: feeling better mouth hurting less remained afebrile continues to improve slowly - Current Medication List Current Medications: Active Medications Acetaminophen (Tylenol -) 650 mg PO Q4H PRN PRN Reason: PAIN LEVEL 1 - 3 Last Admin: 03/24/18 05:39 Dose: 650 mg Heparin Sodium (Porcine) (Heparin -) 5,000 unit SQ TID [facility] Last Admin: 03/24/18 13:04 Dose: 5,000 unit Cefepime HCl (Maxipime 1 Gm Premix Ivpb) 1 gm in 50 mls @ 100 mls/hr IVPB Q8H- IV FLAVIO; Protocol Last Admin: 03/24/18 11:20 Dose: 100 mls/hr Clindamycin Phosphate (Cleocin 300 Mg Premix Ivpb) 300 mg in 50 mls @ 104 mls/ hr IVPB Q8H-IV FLAVIO; Protocol Last Admin: 03/24/18 11:18 Dose: 104 mls/hr Potassium Chloride/Dextrose/Sod Cl (D5-1/2ns+30 Meq Kcl -) 30 meq in 1,000 mls @ 100 mls/hr IV ASDIR [facility] Last Admin: 03/23/18 21:27 Dose: 100 mls/hr Lactobacillus Acidophilus (Bacid -) 1 tab PO BID [facility] Last Admin: 03/24/18 11:19 Dose: 1 tab Leucovorin Calcium (Leucovorin -) 10 mg PO BID [facility] Last Admin: 03/24/18 11:19 Dose: 10 mg Lidocaine HCl (Xylocaine 2% Viscous Oral -) 20 ml MM TID PRN PRN Reason: ORAL PAIN/MOUTH SORES Last Admin: 03/24/18 05:37 Dose: 20 ml Lidocaine/Aluminum/Magnesium/Simeth (Magic Mouthwash *Sjr Formula* -) 5 ml MM Q4HPO [facility] Last Admin: 03/24/18 11:20 Dose: 5 ml Morphine Sulfate (Morphine Sulfate) 2 mg IVPUSH Q4H PRN PRN Reason: PAIN LEVEL 7 - 10 Last Admin: 03/24/18 11:47 Dose: 2 mg Witch Chikis/Glycerin (Tucks Pads -) 1 pad TP BID [facility] Last Admin: 03/24/18 11:20 Dose: 1 pad - Objective Vital Signs: Vital Signs Temperature 98.3 F 03/24/18 14:00 Pulse Rate 102 H 03/24/18 14:00 Respiratory Rate 20 03/24/18 14:00 Blood Pressure 120/61 03/24/18 14:00 O2 Sat by Pulse Oximetry (%) 98 03/24/18 09:00 Constitutional: Yes: Calm, Mild Distress HENT: Yes: Other (ulcers in the mouth) Cardiovascular: Yes: Regular Rate and Rhythm Respiratory: Yes: Regular, CTA Bilaterally Gastrointestinal: Yes: Normal Bowel Sounds, Soft Musculoskeletal: Yes: WNL Extremities: Yes: WNL Neurological: Yes: Alert, Oriented Psychiatric: Yes: Alert, Oriented Labs: CBC, BMP 03/24/18 06:30 03/24/18 06:30 INR, PTT INR 1.19 (0.83-1.09) H 03/21/18 16:50 Assessment/Plan Problem List - Problems (1) Stomatitis Code(s): K12.1 - OTHER FORMS OF STOMATITIS (2) Stomatitis, ulcerative Code(s): K12.1 - OTHER FORMS OF STOMATITIS (3) Neutropenic fever Code(s): D70.9 - NEUTROPENIA, UNSPECIFIED; R50.81 - FEVER PRESENTING WITH CONDITIONS CLASSIFIED ELSEWHERE 4 gm positive bacteremia Assessment/Plan A 62F with stomatitis, perianal ulcers and leukopenia coming in with fever and inability to eat also having blood cx positive which i think might be a contaminant continue iv abx monitor wbc monitor all blood lines heam/onco on case await rheumatology input rest as per the team
[2018-03-24 16:49] VITALS: BMI 29.8
--- NOTE | 2018-03-24 17:02 | PN ---
Physical Exam: SUBJECTIVE: Patient seen and examined this morning at bedside. Says she feels much better. Received morphine x1 over night. OBJECTIVE: Vital Signs Period Temp Pulse Resp BP Sys/Muniz Pulse Ox Last 24 Hr 98.3 F-100.0 F 98-102 18-20 92-124/47-66 98-98 GENERAL: Awake, alert, difficulty with speak, in no acute distress. EYES: PERRL, EOMI THROAT: Multiple mouth ulcers visible. Dried blood present over ulcers on the caudad lip. Multiple bouts of pink/red saliva drooling from mouth as patient has much difficulty with closing her jaw NECK: No JVD. LUNGS: Breath sounds equal, clear to auscultation bilaterally. No wheezes. HEART: Regular rate and rhythm, normal S1 and S2 without murmur. ABDOMEN: Soft, nontender, not distended, normoactive bowel sounds, no guarding. EXTREMITIES: 2+ pulses, No peripheral edema. SKIN: Multiple Ulcers present between gluteal folds, without active drainage/ discharge, with no surrounding erythema or swelling. Area was significantly tender surrounding the ulcers. Laboratory Results - last 24 hr 03/23/18 03/23/18 03/23/18 06:00 17:15 17:15 WBC 1.0 L* RBC 2.74 L Hgb 8.6 L Hct 26.4 L MCV 96.5 H MCH 31.5 MCHC 32.6 RDW 19.1 H Plt Count 122 L D MPV 10.1 Absolute Neuts (auto) 0.3 Total Counted 100 Neutrophils % 34.4 L D Neutrophils % (Manual) 35.0 L D Band Neutrophils % Lymphocytes % 54.8 H Lymphocytes % (Manual) 59.0 H D Monocytes % 9.5 Monocytes % (Manual) 6 Eosinophils % 0.9 D Eosinophils % (Manual) Basophils % 0.4 Basophils % (Manual) Myelocytes % (Man) Promyelocytes % (Man) Blast Cells % (Manual) Nucleated RBC % 0 Metamyelocytes Hypochromia 2+ Platelet Estimate Slt decrease Platelet Comment No clumping noted Polychromasia Poikilocytosis Anisocytosis 2+ Microcytosis 1+ Macrocytosis 2+ Sodium 151 H Potassium 3.8 Chloride 114 H Carbon Dioxide 29 Anion Gap 8 BUN 24 H Creatinine 1.1 H Creat Clearance w eGFR 50.50 Random Glucose 106 Calcium 9.2 Phosphorus Magnesium Iron 91 TIBC 134 L Iron Saturation 68 H Total Bilirubin 1.4 H AST 21 ALT 40 Alkaline Phosphatase 81 Total Protein 6.7 Albumin 2.7 L 03/24/18 03/24/18 06:30 06:30 WBC 0.6 L* RBC 2.52 L Hgb 8.0 L Hct 24.1 L MCV 95.8 MCH 31.7 MCHC 33.1 RDW 18.2 H Plt Count 88 L D MPV 10.0 Absolute Neuts (auto) 0.2 Total Counted Neutrophils % 28.2 L Neutrophils % (Manual) 16.7 L D Band Neutrophils % 1.0 Lymphocytes % 61.2 H Lymphocytes % (Manual) 74.0 H D Monocytes % 7.0 Monocytes % (Manual) 5 Eosinophils % 2.9 D Eosinophils % (Manual) 3.1 D Basophils % 0.7 Basophils % (Manual) 0.0 Myelocytes % (Man) 0 Promyelocytes % (Man) 0 Blast Cells % (Manual) 0 Nucleated RBC % 0 Metamyelocytes 0 Hypochromia 0 Platelet Estimate Decreased Platelet Comment Polychromasia 0 Poikilocytosis 0 Anisocytosis 1+ Microcytosis 0 Macrocytosis 1+ Sodium 148 H Potassium 3.6 Chloride 114 H Carbon Dioxide 26 Anion Gap 8 BUN 21 H Creatinine 1.2 H Creat Clearance w eGFR 45.67 Random Glucose 131 H Calcium 8.8 Phosphorus 2.1 L Magnesium 2.4 Iron TIBC Iron Saturation Total Bilirubin 1.4 H AST 27 ALT 38 Alkaline Phosphatase 97 D Total Protein 6.7 Albumin 2.6 L Microbiology 03/22/18 10:30 Face Gram Stain - Final 03/22/18 10:30 Face Wound Culture - Final 03/21/18 16:45 Blood - Peripheral Venous Blood Culture - Preliminary Staphylococcus Simulans Pending Organism 03/22/18 10:30 Buttock - Left Gram Stain - Final 03/22/18 10:30 Buttock - Left Wound Culture - Preliminary Escherichia Coli Proteus Species Staphylococcus Coagulase Neg Diphtheroid/Corynebacterium Group D Strep Or Entero Coccus 03/21/18 16:50 Blood - Peripheral Venous Blood Culture - Preliminary NO GROWTH OBTAINED AFTER 48 HOURS, INCUBATION TO CONTINUE FOR 3 DAYS. 03/21/18 18:33 Urine - Urine Clean Catch Urine Culture - Final NO GROWTH OBTAINED Active Medications Acetaminophen (Tylenol -) 650 mg PO Q4H PRN PRN Reason: PAIN LEVEL 1 - 3 Last Admin: 03/24/18 05:39 Dose: 650 mg Heparin Sodium (Porcine) (Heparin -) 5,000 unit SQ TID [facility]LA[facility]IO Last Admin: 03/24/18 13:04 Dose: 5,000 unit Cefepime HCl (Maxipime 1 Gm Premix Ivpb) 1 gm in 50 mls @ 100 mls/hr IVPB Q8H- IV FLAVIO; Protocol Last Admin: 03/24/18 11:20 Dose: 100 mls/hr Clindamycin Phosphate (Cleocin 300 Mg Premix Ivpb) 300 mg in 50 mls @ 104 mls/ hr IVPB Q8H-IV FLAVIO; Protocol Last Admin: 03/24/18 11:18 Dose: 104 mls/hr Potassium Chloride/Dextrose/Sod Cl (D5-1/2ns+30 Meq Kcl -) 30 meq in 1,000 mls @ 100 mls/hr IV ASDIR [facility] Last Admin: 03/23/18 21:27 Dose: 100 mls/hr Lactobacillus Acidophilus (Bacid -) 1 tab PO BID [facility] Last Admin: 03/24/18 11:19 Dose: 1 tab Leucovorin Calcium (Leucovorin -) 10 mg PO BID [facility] Last Admin: 03/24/18 11:19 Dose: 10 mg Lidocaine HCl (Xylocaine 2% Viscous Oral -) 20 ml MM TID PRN PRN Reason: ORAL PAIN/MOUTH SORES Last Admin: 03/24/18 15:57 Dose: 20 ml Lidocaine/Aluminum/Magnesium/Simeth (Magic Mouthwash *Sjr Formula* -) 5 ml MM Q4HPO [facility] Last Admin: 03/24/18 14:40 Dose: 5 ml Morphine Sulfate (Morphine Sulfate) 2 mg IVPUSH Q4H PRN PRN Reason: PAIN LEVEL 7 - 10 Last Admin: 03/24/18 11:47 Dose: 2 mg Witch Chikis/Glycerin (Tucks Pads -) 1 pad TP BID [facility] Last Admin: 03/24/18 11:20 Dose: 1 pad IMAGING: - CXR: elevated right hemidiaphragm, large heart, unfolded aorta, left-sided pacemaker and no sign of an acute process. The bones and soft tissues are intact. - CT Chest, Abdomen and Pelvis: No evidence of pneumonia or acute pathology within the chest. Cholelithiasis. No evidence of intra-abdominal abscess or acute pathology within the abdomen or pelvis. ASSESSMENT/PLAN: 62 y/o F presents with painful ulcers in her mouth and rectum was found to have neutropenic fever and admitted to Obs for sepsis. 1. Sepsis - Afebrile, HR 98-102, WBC 0.6 - CXR and UA noted above - Blood and urine cx noted above - Lactic acid 2.2 --> 1.8 - Continue Clindamycin, Cefepime - D5-1/2ns+30 Meq Kcl in 1,000 mls @ 100 mls/hr IV - Swab ulcers in Oropharynx and Gluteal folds for cultures, results noted above - ID (Dr. Lewis) consulted, appreciate rec's, continue cefepime, add clinda - Rheumatolgy (Dr. Canas) consulted 2. Methotrexate Toxicity - Acute Stomatitis, Perianal ulcers, Leukopenia, Neutropenia - Possibly due to not taking Folic acid while taking Methotrexate, Patient admits she missed some folic acid doses - Hematology (Dr. Bailey) consulted, appreciate rec's, start leucovorin (03/23 ), and can change to folic acid in 2 or 3 days, will likely need BM biopsy - GI (Dr. Briseno) Consulted, appreciate rec's, will need CT A/P with contrast when able to take po - Continue Magic Mouthwash 5 ml MM Q4HPO - Continue Xylocaine 2% Viscous Oral 20 ml MM TID PRN 3. Hypokalemia - Resolved - Ordered 40 mEq KPhos x 2 doses - Also receiving D5-1/2ns+30 Meq Kcl in 1,000 mls @ 100 mls/hr IV 4. HEATHER - BUN 21, Cr 1.1 - D5-1/2ns+30 Meq Kcl in 1,000 mls @ 100 mls/hr IV 5. Anemia - Unclear Etiology - Serial Stool Guaiacs, Reticulocyte count, Iron studies 6. FEN - D5-1/2ns+30 Meq Kcl in 1,000 mls @ 100 mls/hr IV - Hypernatremic, Continue to monitor - Full Liquid diet, Ensure ordered 7. PPX - DVT: Heparin 5000u AQ TID Visit type - Emergency Visit Emergency Visit: Yes ED Registration Date: 03/22/18 Care time: The patient presented to the Emergency Department on the above date and was hospitalized for further evaluation of their emergent condition. - New Patient This patient is new to me today: No - Critical Care Critical Care patient: No
[2018-03-24] MEDS: D5-1/2NS+30 MEQ KCL - 30 MEQ/1,000 ML INFUS.BAG IV SCH (18:54)
[2018-03-24] MEDS ORDERED: FOLIC ACID 5 MG/1 ML SQ ONE (19:37)
--- NOTE | 2018-03-24 19:38 | PN ---
Progress Note (short form) - Note Progress Note: patient seen and examined Miserable from mucositis Last Vital Signs Temp Pulse Resp BP Pulse Ox 99.7 F H 108 H 18 124/68 98 03/24/18 16:55 03/24/18 16:55 03/24/18 16:55 03/24/18 16:55 03/24/18 09:00 HEENT: TONY, EOM Intact Oropharynxmucositis Cor: RSR, No murmurs, No gallops Lungs: Clear to P&A Abd: Soft, Normal bowel sounds, No organomegaly Ext:No significant edema Skin: No rashes, Integument intact CBC, BMP 03/24/18 06:30 03/24/18 06:30 Current Medications Generic Name Dose Route Start Last Admin Trade Name Freq PRN Reason Stop Dose Admin Acetaminophen 650 mg 03/22/18 01:28 03/24/18 05:39 Tylenol - PO 650 mg Q4H PRN Administration PAIN LEVEL 1 - 3 Heparin Sodium (Porcine) 5,000 unit 03/22/18 06:45 03/24/18 13:04 Heparin - SQ 5,000 unit TID FLAVIO Administration Cefepime HCl 1 gm in 50 mls @ 100 mls/hr 03/22/18 18:00 03/24/18 18:54 Maxipime 1 Gm Premix Ivpb IVPB Not Given Q8H-IV FLAVIO Protocol Clindamycin Phosphate 300 mg in 50 mls @ 104 mls/hr 03/23/18 02:00 03/24/18 18:54 Cleocin 300 Mg Premix Ivpb IVPB Not Given Q8H-IV FLAVIO Protocol Potassium Chloride/Dextrose/Sod Cl 30 meq in 1,000 mls @ 100 mls/hr 03/23/18 19:15 03/24/18 18:54 D5-1/2ns+30 Meq Kcl - IV Not Given ASDIR FLAVIO Lactobacillus Acidophilus 1 tab 03/22/18 10:00 03/24/18 11:19 Bacid - PO 1 tab BID FLAVIO Administration Lidocaine HCl 20 ml 03/22/18 14:00 03/24/18 15:57 Xylocaine 2% Viscous Oral - MM 20 ml TID PRN Administration ORAL PAIN/MOUTH SORES Lidocaine/Aluminum/Magnesium/Simeth 5 ml 03/22/18 18:00 03/24/18 18:30 Magic Mouthwash *Sjr Formula* - MM 5 ml Q4HPO FLAVIO Administration Morphine Sulfate 2 mg 03/22/18 03:09 03/24/18 11:47 Morphine Sulfate IVPUSH 2 mg Q4H PRN Administration PAIN LEVEL 7 - 10 Witch Chikis/Glycerin 1 pad 03/22/18 22:00 03/24/18 11:20 Tucks Pads - TP 1 pad BID FLAVIO Administration Impression: Pancytopenia Mucositis Rheumatoid arthritis s/p Methotrexate The mild renal insufficiency and the low folate witll potentiate the toxicity of MTX. Will increase leucovorum to 25 mg q 6h.
[2018-03-24] MEDS ORDERED: FOLIC ACID 5 MG/1 ML SQ SCH (19:45)
[2018-03-24] MEDS ORDERED: WATER IVPB SCH (21:00)
[2018-03-24] MEDS ORDERED: LEUCOVORIN IVPB SCH (21:00)
[2018-03-24] MEDS ORDERED: DEXTROSE 5% IVPB SCH (21:00)
[2018-03-24] MEDS: FOLIC ACID 5 MG/1 ML SQ SCH (22:07)
[2018-03-25] MEDS: CLINDAMYCIN 300 MG PREMIX IVPB 300 MG/50 ML BAG IVPB SCH ×3 (01:40→17:15)
[2018-03-25] MEDS: CEFEPIME HCL/D5W 1 GM/50 ML BAG IVPB SCH ×4 (01:40→19:40)
[2018-03-25] MEDS: MAG HYDROX/ALH/SMC/DPHA/LIDO 240 ML MOUTHWASH MM SCH ×6 (01:41→21:13)
[2018-03-25] MEDS: LEUCOVORIN CALCIUM 5 MG TABLET PO SCH ×4 (01:42→19:41)
[2018-03-25] MEDS: morphine SULFATE 4 MG/ML VIAL IM PRN ×2 (02:38→11:42)
[2018-03-25] MEDS: LIDOCAINE VISCOUS 2% ORAL/TOP 20 ML UNIT-DOSE CUP MM PRN ×2 (06:14→22:36)
[2018-03-25] MEDS: HEPARIN NA (PORCINE) 5,000 UNITS/ML 1ML VIAL SQ SCH ×3 (06:14→21:13)
[2018-03-25 06:45] LABS: BASO % 0.7 % (0-2.0); EOS % 3.7 % (0-4.5); HEMATOCRIT 24.4 % (32.4-45.2); LYMPH % 60.4 % (8-40); MCH 31.9 pg (25.7-33.7); MCHC 32.8 g/dl (32.0-36.0); MEAN CELL VOLUME 97.2 fl (80-96); MEAN PLT VOLUME 10.4 fl (7.5-11.1); MONO % 2.5 % (3.8-10.2); NEUT % 32.7 % (42.8-82.8); PLATELET COUNT 65 K/MM3 (134-434); RBC 2.51 M/mm3 (3.60-5.2); RDW 18.7 % (11.6-15.6); WHITE BLOOD COUNT 0.9 K/mm3 (4.0-10.0)
[2018-03-25 07:07] LABS: CHLORIDE 116 mmol/L (98-107); POTASSIUM 3.5 mmol/L (3.5-5.1); SODIUM 151 mmol/L (136-145)
[2018-03-25 07:19] LABS: ALBUMIN 2.5 g/dl (3.4-5.0); ALK PHOS 98 U/L (45-117); ANION GAP 8 (8-16); BILIRUBIN,TOTAL 1.1 mg/dL (0.2-1.0); BLOOD UREA NITROGEN 15 mg/dL (7-18); CO2 27 mmol/L (21-32); GLUCOSE,RANDOM 92 mg/dL (74-106); MAGNESIUM 2.3 mg/dL (1.8-2.4); PHOSPHOROUS 2.9 mg/dL (2.5-4.9); SGOT/AST 25 U/L (15-37); SGPT/ALT 31 U/L (12-78); TOT PROT 6.3 g/dl (6.4-8.2)
--- NOTE | 2018-03-25 07:25 | PN ---
Physical Exam: SUBJECTIVE: Patient seen and examined this morning. Patient received her Morphine x1 overnight. Diet overnight changed to full liquids, able to tolerate apple sauce. Additionally complains of fatigue and gas. Denies fevers, chills, chest pain, SOB, nausea, vomiting, diarrhea, constipation. OBJECTIVE: Vital Signs Period Temp Pulse Resp BP Sys/Muniz Pulse Ox Last 24 Hr 98.3 F-99.7 F 98-112 16-20 108-157/47-84 98-98 GENERAL: Awake, alert, Decreased difficulty with speaking today, in no acute distress. EYES: PERRL, EOMI THROAT: Multiple mouth ulcers visible. Dried blood present over ulcers on the caudad lip however appears improved. Multiple bouts of pink/red saliva drooling from mouth, visible dried saliva over patients bedding and gown. Patient is able to speak more clearly today and no longer limited to just grunts. NECK: No JVD. LUNGS: Breath sounds equal, clear to auscultation bilaterally. No wheezes. HEART: Regular rate and rhythm, normal S1 and S2 without murmur. ABDOMEN: Soft, nontender, not distended, normoactive bowel sounds, no guarding. EXTREMITIES: 2+ pulses, No peripheral edema. SKIN: Multiple Ulcers present between gluteal folds, without active drainage/ discharge, with no surrounding erythema or swelling. Tenderness surrounding area was improved. Laboratory Results - last 24 hr 03/23/18 03/24/18 03/24/18 06:00 06:30 06:30 WBC 0.6 L* RBC 2.52 L Hgb 8.0 L Hct 24.1 L MCV 95.8 MCH 31.7 MCHC 33.1 RDW 18.2 H Plt Count 88 L D MPV 10.0 Absolute Neuts (auto) 0.2 Neutrophils % 28.2 L Neutrophils % (Manual) 16.7 L D Band Neutrophils % 1.0 Lymphocytes % 61.2 H Lymphocytes % (Manual) 74.0 H D Monocytes % 7.0 Monocytes % (Manual) 5 Eosinophils % 2.9 D Eosinophils % (Manual) 3.1 D Basophils % 0.7 Basophils % (Manual) 0.0 Myelocytes % (Man) 0 Promyelocytes % (Man) 0 Blast Cells % (Manual) 0 Nucleated RBC % 0 Metamyelocytes 0 Hypochromia 0 Platelet Estimate Decreased Polychromasia 0 Poikilocytosis 0 Anisocytosis 1+ Microcytosis 0 Macrocytosis 1+ Sodium 148 H Potassium 3.6 Chloride 114 H Carbon Dioxide 26 Anion Gap 8 BUN 21 H Creatinine 1.2 H Creat Clearance w eGFR 45.67 Random Glucose 131 H Calcium 8.8 Phosphorus 2.1 L Magnesium 2.4 Total Bilirubin 1.4 H AST 27 ALT 38 Alkaline Phosphatase 97 D Total Protein 6.7 Albumin 2.6 L Rheumatoid Arth Biomark 112.2 H DRE Screen Positive H DRE Homogeneous Pattern 1:160 H DRE Nucleolar Pattern TNP DRE Spindle Demetrice Pattern TNP DRE Midbody Pattern TNP DRE Centriole Pattern TNP DRE Nuclear Dot Pattern TNP DRE PCNA Pattern TNP DRE Nuclear Membr Pat TNP DRE Speckled Pattern TNP DRE Centromere Pattern TNP 03/25/18 06:00 WBC RBC Hgb Hct MCV MCH MCHC RDW Plt Count MPV Absolute Neuts (auto) Neutrophils % Neutrophils % (Manual) Band Neutrophils % Lymphocytes % Lymphocytes % (Manual) Monocytes % Monocytes % (Manual) Eosinophils % Eosinophils % (Manual) Basophils % Basophils % (Manual) Myelocytes % (Man) Promyelocytes % (Man) Blast Cells % (Manual) Nucleated RBC % Metamyelocytes Hypochromia Platelet Estimate Polychromasia Poikilocytosis Anisocytosis Microcytosis Macrocytosis Sodium 151 H Potassium 3.5 Chloride 116 H Carbon Dioxide Anion Gap BUN Creatinine Creat Clearance w eGFR Random Glucose Calcium Phosphorus Magnesium Total Bilirubin AST ALT Alkaline Phosphatase Total Protein Albumin Rheumatoid Arth Biomark DRE Screen DRE Homogeneous Pattern DRE Nucleolar Pattern DRE Spindle Demetrice Pattern DRE Midbody Pattern DRE Centriole Pattern DRE Nuclear Dot Pattern DRE PCNA Pattern DRE Nuclear Membr Pat DRE Speckled Pattern DRE Centromere Pattern Microbiology 03/21/18 16:50 Blood - Peripheral Venous Blood Culture - Preliminary NO GROWTH OBTAINED AFTER 96 HOURS, INCUBATION TO CONTINUE FOR 1 DAYS. 03/21/18 16:45 Blood - Peripheral Venous Blood Culture - Final Staphylococcus Simulans [place] Species 03/22/18 10:30 Buttock - Left Gram Stain - Final 03/22/18 10:30 Buttock - Left Wound Culture - Preliminary Escherichia Coli Proteus Mirabilis Staphylococcus Coagulase Neg Diphtheroid/Corynebacterium Group D Strep Or Entero Coccus 03/24/18 06:30 Blood - Peripheral Venous Blood Culture - Preliminary NO GROWTH OBTAINED AFTER 24 HOURS, INCUBATION TO CONTINUE FOR 4 DAYS. 03/24/18 06:40 Blood - Peripheral Venous Blood Culture - Preliminary NO GROWTH OBTAINED AFTER 24 HOURS, INCUBATION TO CONTINUE FOR 4 DAYS. 03/22/18 10:30 Face Gram Stain - Final 03/22/18 10:30 Face Wound Culture - Final 03/21/18 18:33 Urine - Urine Clean Catch Urine Culture - Final NO GROWTH OBTAINED Active Medications Acetaminophen (Tylenol -) 650 mg PO Q4H PRN PRN Reason: PAIN LEVEL 1 - 3 Last Admin: 03/24/18 05:39 Dose: 650 mg Folic Acid (Folic Acid Injection -) 1 mg SQ DAILY [facility] Stop: 03/27/18 10:01 Last Admin: 03/24/18 22:07 Dose: 1 mg Heparin Sodium (Porcine) (Heparin -) 5,000 unit SQ TID [facility] Last Admin: 03/25/18 06:14 Dose: 5,000 unit Cefepime HCl (Maxipime 1 Gm Premix Ivpb) 1 gm in 50 mls @ 100 mls/hr IVPB Q8H- IV [facility]; Protocol Last Admin: 03/25/18 01:40 Dose: Not Given Clindamycin Phosphate (Cleocin 300 Mg Premix Ivpb) 300 mg in 50 mls @ 104 mls/ hr IVPB Q8H-IV [facility]; Protocol Last Admin: 03/25/18 01:40 Dose: Not Given Potassium Chloride/Dextrose/Sod Cl (D5-1/2ns+30 Meq Kcl -) 30 meq in 1,000 mls @ 100 mls/hr IV ASDIR [facility] Last Admin: 03/24/18 18:54 Dose: Not Given Leucovorin Calcium 25 mg/ (Dextrose) 51.25 mls @ 205 mls/hr IVPB Q6H-IV [facility] Stop: 03/27/18 03:14 Lactobacillus Acidophilus (Bacid -) 1 tab PO BID [facility] Last Admin: 03/24/18 22:08 Dose: 1 tab Leucovorin Calcium (Leucovorin -) 25 mg PO Q6H [facility] Last Admin: 03/25/18 01:42 Dose: 25 mg Lidocaine HCl (Xylocaine 2% Viscous Oral -) 20 ml MM TID PRN PRN Reason: ORAL PAIN/MOUTH SORES Last Admin: 03/25/18 06:14 Dose: 20 ml Lidocaine/Aluminum/Magnesium/Simeth (Magic Mouthwash *Sjr Formula* -) 5 ml MM Q4HPO [facility] Last Admin: 03/25/18 06:13 Dose: 5 ml Morphine Sulfate (Morphine Sulfate) 2 mg IM Q6H PRN PRN Reason: PAIN LEVEL 7 - 10 Last Admin: 03/25/18 02:38 Dose: 2 mg Witch Chikis/Glycerin (Tucks Pads -) 1 pad TP BID [facility] Last Admin: 03/24/18 22:14 Dose: 1 pad IMAGING: - CXR: elevated right hemidiaphragm, large heart, unfolded aorta, left-sided pacemaker and no sign of an acute process. The bones and soft tissues are intact. - CT Chest, Abdomen and Pelvis: No evidence of pneumonia or acute pathology within the chest. Cholelithiasis. No evidence of intra-abdominal abscess or acute pathology within the abdomen or pelvis. ASSESSMENT/PLAN: 62 y/o F presents with painful ulcers in her mouth and rectum was found to have neutropenic fever and admitted to Obs for sepsis. 1. Sepsis - Patient currently does not have IV Access - Afebrile, HR 98-102, WBC 0.6 - CXR and UA noted above - Blood and urine cx noted above - Lactic acid 2.2 --> 1.8 - Continue Clindamycin, Cefepime - D5-1/2ns+30 Meq Kcl in 1,000 mls @ 100 mls/hr IV (NO IV ACCESS) - Swab ulcers in Oropharynx and Gluteal folds for cultures, results noted above - ID (Dr. Lewis) consulted, appreciate rec's, continue cefepime, add clinda - Rheumatolgy (Dr. Canas) consulted, left message with service 2. Methotrexate Toxicity - Acute Stomatitis, Perianal ulcers, Leukopenia, Neutropenia - Possibly due to not taking Folic acid while taking Methotrexate, Patient admits she missed some folic acid doses - Hematology (Dr. Bailey) consulted, appreciate rec's, start leucovorin (03/23 ), and can change to folic acid in 2 or 3 days, will likely need BM biopsy - GI (Dr. Briseno) Consulted, appreciate rec's, will need CT A/P with contrast when able to take po - Continue Magic Mouthwash 5 ml MM Q4HPO - Continue Xylocaine 2% Viscous Oral 20 ml MM TID PRN - Started Leucovorin 25 mg PO Q6H as patient currently does not have IV Access - Anticoagulation held, PICC line order placed 3. Hypokalemia - Resolved - Ordered 40 mEq KPhos x 2 doses - Also receiving D5-1/2ns+30 Meq Kcl in 1,000 mls @ 100 mls/hr IV 4. HEATHER - BUN 21, Cr 1.2 - D5-1/2ns+30 Meq Kcl @ 100 mls/hr IV 5. Anemia - Unclear Etiology - Serial Stool Guaiacs, Reticulocyte count, Iron studies 6. FEN - D5-1/2ns+30 Meq Kcl @ 100 mls/hr IV - Hypernatremic, Continue to monitor - Full Liquid diet, Ensure ordered 7. PPX - DVT: Heparin 5000u AQ TID Visit type - Emergency Visit Emergency Visit: Yes ED Registration Date: 03/22/18 Care time: The patient presented to the Emergency Department on the above date and was hospitalized for further evaluation of their emergent condition. - New Patient This patient is new to me today: No - Critical Care Critical Care patient: No
[2018-03-25] MEDS: DEXTROSE 5% IVPB SCH ×2 (08:22→14:19)
[2018-03-25] MEDS: WATER IVPB SCH ×2 (08:22→14:19)
[2018-03-25] MEDS: LEUCOVORIN IVPB SCH ×2 (08:22→14:19)
--- NOTE | 2018-03-25 08:30 | PN ---
Teaching Attending Note Name of Resident: Haylee Portillo ATTENDING PHYSICIAN STATEMENT I saw and evaluated the patient. I reviewed the resident's note and discussed the case with the resident. I agree with the resident's findings and plan as documented with exceptions below. SUBJECTIVE: Patient seen and examined. mouth ulcers and back ulcer and pain better. able to tolerate liquids. Wants solid fevers. No new fevers chills or concerns. OBJECTIVE: Vital Signs Period Temp Pulse Resp BP Sys/Muniz Pulse Ox Last 24 Hr 98.3 F-99.7 F 98-112 16-20 108-157/47-84 98-98 Home Medications Medication Instructions Recorded Furosemide 80 mg PO DAILY 03/24/18 General: sitting in chair in no acute distress HEENT: oral and lip ulcers with mild bleed, tenderness, whitish discoloration of tongue and hard palate, further exam limited by pain, positive drooling Back: superficial ulcers with some erythema tenderness in gluteal cleft extending perivulvar, patient refuses further exam due to pain Chest:CTAB, no rales or wheezing Abdomen:Soft, obese, NT Extremities: no edema Active Medications Acetaminophen (Tylenol -) 650 mg PO Q4H PRN PRN Reason: PAIN LEVEL 1 - 3 Last Admin: 03/24/18 05:39 Dose: 650 mg Folic Acid (Folic Acid Injection -) 1 mg SQ DAILY [facility] Stop: 03/27/18 10:01 Last Admin: 03/24/18 22:07 Dose: 1 mg Heparin Sodium (Porcine) (Heparin -) 5,000 unit SQ TID [facility] Last Admin: 03/25/18 06:14 Dose: 5,000 unit Cefepime HCl (Maxipime 1 Gm Premix Ivpb) 1 gm in 50 mls @ 100 mls/hr IVPB Q8H- IV [facility]; Protocol Last Admin: 03/25/18 01:40 Dose: Not Given Clindamycin Phosphate (Cleocin 300 Mg Premix Ivpb) 300 mg in 50 mls @ 104 mls/ hr IVPB Q8H-IV [facility]; Protocol Last Admin: 03/25/18 01:40 Dose: Not Given Potassium Chloride/Dextrose/Sod Cl (D5-1/2ns+30 Meq Kcl -) 30 meq in 1,000 mls @ 100 mls/hr IV ASDIR [facility] Last Admin: 03/24/18 18:54 Dose: Not Given Leucovorin Calcium 25 mg/ (Dextrose) 51.25 mls @ 205 mls/hr IVPB Q6H-IV [facility] Stop: 03/27/18 03:14 Last Admin: 03/25/18 08:22 Dose: Not Given Lactobacillus Acidophilus (Bacid -) 1 tab PO BID [facility] Last Admin: 03/24/18 22:08 Dose: 1 tab Leucovorin Calcium (Leucovorin -) 25 mg PO Q6H [facility] Last Admin: 03/25/18 08:21 Dose: 25 mg Lidocaine HCl (Xylocaine 2% Viscous Oral -) 20 ml MM TID PRN PRN Reason: ORAL PAIN/MOUTH SORES Last Admin: 03/25/18 06:14 Dose: 20 ml Lidocaine/Aluminum/Magnesium/Simeth (Magic Mouthwash *Sjr Formula* -) 5 ml MM Q4HPO [facility] Last Admin: 03/25/18 06:13 Dose: 5 ml Morphine Sulfate (Morphine Sulfate) 2 mg IM Q6H PRN PRN Reason: PAIN LEVEL 7 - 10 Last Admin: 03/25/18 02:38 Dose: 2 mg Witch Chikis/Glycerin (Tucks Pads -) 1 pad TP BID [facility] Last Admin: 03/24/18 22:14 Dose: 1 pad ASSESSMENT AND PLAN: 62 yof with PMHx of RA on Methotrexate (for years, stopped 2 weeks ago), admitted with painful ulcers in her mouth (since August) and rectum, progressive with decreased oral intake, found with neutropenic fevers, bacteremia -Acute stomatitis/perianal ulcers/Leucopenia with severe absolute neutropenia, suspected Methotrexate toxicity -Neutropenic fevers, with staph stimulans bacteremia (?oral source) -FOlic acid deficiency -RA on Methotrexate -Hypokalemia -Hypernatremia, suspect from poor oral intake, compounded by NS in hydration -Hyperchloremia, suspect iatrogenic -Failure to thrive, from above. Plan: Hematology input appreciated. Leucovorum with sq folate. Defer bone marrow biopsy to hematology. Neupogen pending the same. Afebrile, follow up final blood cultures. ID input appreciated. Cefepime/clindamycin. EJ vs PICC for access Rheumatology input with Dr. Canas. replete k prn. Change IVF to D5 with KCL and monitor Na levels. DVTPPx with heparin Dispo pending resolution of medical issues. Plan discussed with patient in detail, all questions answered.
[2018-03-25] MEDS ORDERED: DEXTROSE 5%-WATER - 1,000 ML with POTASSIUM CHLORIDE 20 MEQ IVPB SCH (09:00)
[2018-03-25] MEDS ORDERED: CLINDAMYCIN HCL 150 MG CAPSULE (FP) PO ONE (09:14)
[2018-03-25] MEDS: WITCH HAZEL 50% (TUCKS) 40 PAD/JAR PAD TP SCH ×2 (10:43→21:13)
[2018-03-25] MEDS ORDERED: PT OWN MED DRAWER 7, Y5N ONE (10:56)
[2018-03-25] MEDS: FOLIC ACID 5 MG/1 ML SQ SCH (10:58)
[2018-03-25] MEDS: LACTOBACILLUS ACIDOPHILUS 1 TABLET PO SCH ×2 (10:59→21:13)
--- NOTE | 2018-03-25 13:47 | PROC ---
Central Line Insertion Indication: Poor Venous Access Risks and Benefits Explained: Yes Consent on Chart: Yes Central Line: Triple Lumen Catheter Anesthesia: 1% Lidocaine Sterile Technique: Yes Ultrasound Guided Assistance: Yes Position: Right Internal Jugular Post Insertion: Yes: Bilateral Breath Sounds, Bilateral Chest Expansion, Chest X-Ray Ordered Sterile Dressing Applied: Yes
[2018-03-25 14:10] LABS: ANISOCYTOSIS 1+; MACROCYTOSIS 1+
[2018-03-25 14:11] LABS: OVALOCYTE 1+
[2018-03-25] MEDS: POTASSIUM CHLORIDE 20 MEQ in DEXTROSE 5%-WATER - 1,000 ML IVPB SCH ×2 (17:15→21:12)
[2018-03-25] MEDS ORDERED: PICC LINE 8 ML FLUSH PROTOCOL IVPUSH PRN (17:52)
--- NOTE | 2018-03-25 18:11 | PN ---
Progress Note, Physician History of Present Illness: ulcers continue to improve patient stable - Current Medication List Current Medications: Active Medications Acetaminophen (Tylenol -) 650 mg PO Q4H PRN PRN Reason: PAIN LEVEL 1 - 3 Last Admin: 03/24/18 05:39 Dose: 650 mg Folic Acid (Folic Acid Injection -) 1 mg SQ DAILY [facility] Stop: 03/27/18 10:01 Last Admin: 03/25/18 10:58 Dose: 1 mg Heparin Sodium (Porcine) (Heparin -) 5,000 unit SQ TID [facility] Last Admin: 03/25/18 14:18 Dose: 5,000 unit IV Flush (Picc Line Flush) 8 ml IVPUSH PRN PRN PRN Reason: Protocol Potassium Chloride 20 meq/ (Dextrose) 1,010 mls @ 75 mls/hr IVPB Q13H [facility] Last Admin: 03/25/18 17:15 Dose: Not Given Cefepime HCl (Maxipime 1 Gm Premix Ivpb) 1 gm in 50 mls @ 100 mls/hr IVPB Q8H- IV [facility]; Protocol Stop: 03/26/18 17:59 Clindamycin Phosphate 300 mg/ (Dextrose) 50 mls @ 100 mls/hr IVPB Q8H-IV [facility]; Protocol Stop: 03/26/18 17:59 Lactobacillus Acidophilus (Bacid -) 1 tab PO BID [facility] Last Admin: 03/25/18 10:59 Dose: 1 tab Leucovorin Calcium (Leucovorin -) 25 mg PO Q6H [facility] Lidocaine HCl (Xylocaine 2% Viscous Oral -) 20 ml MM TID PRN PRN Reason: ORAL PAIN/MOUTH SORES Last Admin: 03/25/18 06:14 Dose: 20 ml Lidocaine/Aluminum/Magnesium/Simeth (Magic Mouthwash *Sjr Formula* -) 5 ml MM Q4HPO [facility] Last Admin: 03/25/18 17:33 Dose: 5 ml Morphine Sulfate (Morphine Sulfate) 2 mg IM Q6H PRN PRN Reason: PAIN LEVEL 7 - 10 Witch Chikis/Glycerin (Tucks Pads -) 1 pad TP BID [facility] Last Admin: 03/25/18 10:43 Dose: Not Given - Objective Vital Signs: Vital Signs Temperature 97.9 F 03/25/18 14:00 Pulse Rate 100 H 03/25/18 14:00 Respiratory Rate 18 14/18 14:00 Blood Pressure 130/80 03/25/18 14:00 O2 Sat by Pulse Oximetry (%) 97 03/25/18 09:00 Constitutional: Yes: No Distress, Calm HENT: Yes: Other (ulcers in the mouth improving) Cardiovascular: Yes: Regular Rate and Rhythm Respiratory: Yes: Regular, CTA Bilaterally Gastrointestinal: Yes: Normal Bowel Sounds, Soft Extremities: Yes: WNL Neurological: Yes: Alert, Oriented Psychiatric: Yes: Alert, Oriented Labs: CBC, BMP 03/25/18 06:00 03/25/18 06:00 INR, PTT INR 1.19 (0.83-1.09) H 03/21/18 16:50 Assessment/Plan Problem List - Problems (1) Stomatitis Code(s): K12.1 - OTHER FORMS OF STOMATITIS (2) Stomatitis, ulcerative Code(s): K12.1 - OTHER FORMS OF STOMATITIS (3) Neutropenic fever Code(s): D70.9 - NEUTROPENIA, UNSPECIFIED; R50.81 - FEVER PRESENTING WITH CONDITIONS CLASSIFIED ELSEWHERE 4 gm positive bacteremia Assessment/Plan A 62F with stomatitis, perianal ulcers and leukopenia coming in with fever and inability to eat also having blood cx positive which i think might be a contaminant continue iv abx monitor wbc monitor all blood lines heam/onco on case rest as per the team
[2018-03-25] MEDS: CLINDAMYCIN IVPB 300 MG in DEXTROSE 5%-WATER - 48 ML IVPB SCH (19:40)
--- NOTE | 2018-03-25 20:45 | CONSULT ---
Consult Consult Specialty:: General Surgery Reason for Consultation:: IV access - History of Present Illness Chief Complaint: Neutropenia History of Present Illness: 62 yo female PMH presents with painful ulcers in her mouth and rectum. Patient says the ulcers began in her mouth since August as a single ulcer and have been worsening since. Patient has had increasing mouth pain for the past 2 weeks accompanied with dizziness and inability to speak. She says she has lost 15lbs over the past 5 weeks. She has no IV access. Requires IV antibiotics. we were asked to assess. - History Source History Provided By: Patient, Medical Record Limitations to Obtaining History: No Limitations - Smoking History Smoking history: Current every day smoker Have you smoked in the past 12 months: Yes Home Medications - Allergies Allergies/Adverse Reactions: Allergies Allergy/AdvReac Type Severity Reaction Status Date / Time No Allergy Information Allergy Verified 03/21/18 15:03 Available - Home Medications Home Medications: Ambulatory Orders Furosemide 80 mg PO DAILY 03/24/18 Review of Systems - Review of Systems Constitutional: reports: Fever, Loss of Appetite, Unintentional Wgt. Loss. denies: Chills Eyes: denies: Double Vision, Recent Change in Vision HENT: reports: Mouth Swelling. denies: Difficult Swallowing, Throat Pain Cardiovascular: denies: Chest Pain, Palpitations Respiratory: denies: Cough, SOB Gastrointestinal: denies: Abdominal Pain, Constipation, Diarrhea Genitourinary: denies: Discharge, Dysuria Breasts: reports: No Symptoms Reported. denies: Pain Musculoskeletal: denies: Muscle Pain, Muscle Weakness Integumentary: denies: Incision, Pruritis, Rash Neurological: denies: Seizure, Syncope Endocrine: denies: Unexplained Weight Gain, Unexplained Weight Loss Hematology/Lymphatic: denies: Easily Bruised, Excessive Bleeding Psychiatric: denies: Anxiety, Depression Physical Exam Vital Signs: Vital Signs Temperature 97.9 F 03/25/18 14:00 Pulse Rate 100 H 03/25/18 14:00 Respiratory Rate 18 03/25/18 14:00 Blood Pressure 130/80 03/25/18 14:00 O2 Sat by Pulse Oximetry (%) 97 03/25/18 09:00 Constitutional: Yes: Well Nourished, No Distress, Calm Eyes: Yes: Conjunctiva Clear, EOM Intact HENT: Yes: Atraumatic, Normocephalic Neck: Yes: Supple, Trachea Midline Cardiovascular: Yes: Regular Rate and Rhythm, S1, S2 Respiratory: Yes: Regular, CTA Bilaterally Gastrointestinal: Yes: Normal Bowel Sounds, Soft. No: Tenderness Renal/: No: CVA Tenderness - Left, CVA Tenderness - Right Musculoskeletal: No: Muscle Pain, Muscle Weakness Extremities: No: Cool, Cyanosis Edema: No Edema: LUE: 2+, RUE: 2+, LLE: 2+, RLE: 2+ Peripheral Pulses WNL: Yes Integumentary: No: Jaundice Neurological: Yes: Alert, Oriented Psychiatric: Yes: Alert, Oriented Labs: CBC, BMP 03/25/18 06:00 03/25/18 06:00 Problem List - Problems (1) Neutropenic fever Assessment/Plan: 62yo female with Neutropenic sepsis with fever and dehydration Attempted Right IJ and Right femoral sites with ultrasound guidance post procedure CXR consider IR for PICC line Thank you for the opportunity to participate in the care of this patient. Code(s): D70.9 - NEUTROPENIA, UNSPECIFIED; R50.81 - FEVER PRESENTING WITH CONDITIONS CLASSIFIED ELSEWHERE (2) Sepsis Code(s): A41.9 - SEPSIS, UNSPECIFIED ORGANISM Qualifiers: Sepsis type: sepsis due to unspecified organism Qualified Code(s): A41.9 - Sepsis, unspecified organism (3) Stomatitis Code(s): K12.1 - OTHER FORMS OF STOMATITIS (4) Stomatitis, ulcerative Code(s): K12.1 - OTHER FORMS OF STOMATITIS
[2018-03-25] MEDS: ACETAMINOPHEN 325 MG TABLET (FP) PO PRN (21:14)
[2018-03-25] MEDS: MORPHINE SULFATE 2 MG/ML VIAL IM PRN (22:42)
[2018-03-26] MEDS: LEUCOVORIN CALCIUM 5 MG TABLET PO SCH ×4 (00:31→17:54)
[2018-03-26] MEDS: CEFEPIME HCL/D5W 1 GM/50 ML BAG IVPB SCH ×3 (02:21→18:50)
[2018-03-26] MEDS: CLINDAMYCIN IVPB 300 MG in DEXTROSE 5%-WATER - 48 ML IVPB SCH ×2 (02:21→09:54)
[2018-03-26] MEDS: MAG HYDROX/ALH/SMC/DPHA/LIDO 240 ML MOUTHWASH MM SCH ×6 (02:21→21:08)
--- NOTE | 2018-03-26 07:57 | PN ---
Teaching Attending Note Name of Resident: Haylee Portillo ATTENDING PHYSICIAN STATEMENT I saw and evaluated the patient. I reviewed the resident's note and discussed the case with the resident. I agree with the resident's findings and plan as documented with exceptions below. SUBJECTIVE: Patient seen and examined. mouth ulcers and pain improved, tolerating liquids better. No fevers/chills, bleed or new concerns. OBJECTIVE: Vital Signs Period Temp Pulse Resp BP Sys/Muniz Pulse Ox Last 24 Hr 97.6 F-99.5 F 96-114 18-19 108-146/69-82 97-97 Intake & Output 03/23/18 03/24/18 03/25/18 03/26/18 23:59 23:59 23:59 23:59 Intake Total 936 1200 860 120 Balance 936 1200 860 120 Weight 185 lb General: lying in bed in no acute distress HEENT: improved ulcers in mouth with scant dried blood, improved swelling, whitish plaque on tongue and hard palate, improved exam Chest: CTAB, no rales or wheezing Abdomen: soft, obese, NT Active Medications Acetaminophen (Tylenol -) 650 mg PO Q4H PRN PRN Reason: PAIN LEVEL 1 - 3 Last Admin: 03/25/18 21:14 Dose: 650 mg Folic Acid (Folic Acid Injection -) 1 mg SQ DAILY [facility]LA[facility]IO Stop: 03/27/18 10:01 Last Admin: 03/25/18 10:58 Dose: 1 mg Heparin Sodium (Porcine) (Heparin -) 5,000 unit SQ TID [facility]LA[facility]IO Last Admin: 03/25/18 21:13 Dose: 5,000 unit IV Flush (Picc Line Flush) 8 ml IVPUSH PRN PRN PRN Reason: Protocol Potassium Chloride 20 meq/ (Dextrose) 1,010 mls @ 75 mls/hr IVPB Q13H [facility] Last Admin: 03/25/18 21:12 Dose: Not Given Cefepime HCl (Maxipime 1 Gm Premix Ivpb) 1 gm in 50 mls @ 100 mls/hr IVPB Q8H- IV FLAVIO; Protocol Stop: 03/26/18 17:59 Last Admin: 03/26/18 02:21 Dose: Not Given Clindamycin Phosphate 300 mg/ (Dextrose) 50 mls @ 100 mls/hr IVPB Q8H-IV [facility]LA[facility]IO; Protocol Stop: 03/26/18 17:59 Last Admin: 03/26/18 02:21 Dose: Not Given Lactobacillus Acidophilus (Bacid -) 1 tab PO BID [facility] Last Admin: 03/25/18 21:13 Dose: 1 tab Leucovorin Calcium (Leucovorin -) 25 mg PO Q6H [facility] Last Admin: 03/26/18 05:42 Dose: 25 mg Lidocaine HCl (Xylocaine 2% Viscous Oral -) 20 ml MM TID PRN PRN Reason: ORAL PAIN/MOUTH SORES Last Admin: 03/25/18 22:36 Dose: 20 ml Lidocaine/Aluminum/Magnesium/Simeth (Magic Mouthwash *Sjr Formula* -) 5 ml MM Q4HPO [facility] Last Admin: 03/26/18 05:43 Dose: 5 ml Morphine Sulfate (Morphine Sulfate) 2 mg IM Q6H PRN PRN Reason: PAIN LEVEL 7 - 10 Last Admin: 03/25/18 22:42 Dose: 2 mg Witch Chikis/Glycerin (Tucks Pads -) 1 pad TP BID [facility] Last Admin: 03/25/18 21:13 Dose: 1 pad Microbiology 03/24/18 06:30 Blood - Peripheral Venous Blood Culture - Preliminary NO GROWTH OBTAINED AFTER 48 HOURS, INCUBATION TO CONTINUE FOR 3 DAYS. 03/24/18 06:40 Blood - Peripheral Venous Blood Culture - Preliminary NO GROWTH OBTAINED AFTER 48 HOURS, INCUBATION TO CONTINUE FOR 3 DAYS. 03/21/18 16:50 Blood - Peripheral Venous Blood Culture - Preliminary NO GROWTH OBTAINED AFTER 96 HOURS, INCUBATION TO CONTINUE FOR 1 DAYS. 03/21/18 16:45 Blood - Peripheral Venous Blood Culture - Final Staphylococcus Simulans [place] Species 03/22/18 10:30 Buttock - Left Gram Stain - Final 03/22/18 10:30 Buttock - Left Wound Culture - Preliminary Escherichia Coli Proteus Mirabilis Staphylococcus Coagulase Neg Diphtheroid/Corynebacterium Group D Strep Or Entero Coccus 03/22/18 10:30 Face Gram Stain - Final 03/22/18 10:30 Face Wound Culture - Final 03/21/18 18:33 Urine - Urine Clean Catch Urine Culture - Final NO GROWTH OBTAINED ASSESSMENT AND PLAN: 62 yof with PMHx of RA on Methotrexate (for years, stopped 2 weeks ago), admitted with painful ulcers in her mouth (since August) and rectum, progressive with decreased oral intake, found with neutropenic fevers, bacteremia -Acute stomatitis/perianal ulcers/Leucopenia with severe absolute neutropenia, suspected Methotrexate toxicity -Neutropenic fevers, with staph stimulans bacteremia -Anemia, ?bone marrow suppression/myeloproliferative disorder, low suspicion for acute bleed -Thrombocytopenia, ?Myeloproliferative disorder, ? HIT -Folic acid deficiency -RA on Methotrexate -Hypokalemia -HEATHER, ?from poor oral intake -Hypernatremia, suspect from poor oral intake -Hyperchloremia, suspect iatrogenic -Failure to thrive, from above. Plan: Discussed with hematology. Follow up recs HIT Panel vs bone marrow biopsy. Hold heparin for now, SCDs when in bed Leucovorum with sq folate. Neupogen pending bone marrow biopsy. Afebrile, final blood cultures noted. ID input appreciated. Cefepime/clindamycin. Rheumatology input with Dr. Canas, case discussed with him. replete k prn. Na/Cl levels improved. Cr noted, likely from lack of hydration yesterday. IVF and encourage oral intake. Monitor renal function. DVTPPx with SCDs as above. Dispo pending resolution of medical issues. Plan discussed with patient in detail, all questions answered.
[2018-03-26 08:08] LABS: BASO % 0.6 % (0-2.0); EOS % 8.1 % (0-4.5); HEMATOCRIT 22.7 % (32.4-45.2); HEMOGLOBIN 7.5 GM/dL (10.7-15.3); LYMPH % 47.7 % (8-40); MCH 31.9 pg (25.7-33.7); MCHC 33.2 g/dl (32.0-36.0); MEAN PLT VOLUME 11.7 fl (7.5-11.1); MONO % 22.7 % (3.8-10.2); NEUT % 20.9 % (42.8-82.8); PLATELET COUNT 49 K/MM3 (134-434); RBC 2.36 M/mm3 (3.60-5.2); RDW 18.6 % (11.6-15.6)
[2018-03-26 08:23] LABS: WHITE BLOOD COUNT 1.2 K/mm3 (4.0-10.0)
[2018-03-26 08:52] LABS: ALBUMIN 2.4 g/dl (3.4-5.0); ANION GAP 6 (8-16); BLOOD UREA NITROGEN 22 mg/dL (7-18); CALCIUM 8.8 mg/dL (8.5-10.1); CHLORIDE 111 mmol/L (98-107); CO2 29 mmol/L (21-32); CREATININE 1.3 mg/dL (0.55-1.02); GLUCOSE,RANDOM 86 mg/dL (74-106); POTASSIUM 3.4 mmol/L (3.5-5.1); SGOT/AST 26 U/L (15-37); SGPT/ALT 33 U/L (12-78); SODIUM 146 mmol/L (136-145)
[2018-03-26 08:54] LABS: ALK PHOS 114 U/L (45-117); BILIRUBIN,TOTAL 0.9 mg/dL (0.2-1.0); TOT PROT 6.3 g/dl (6.4-8.2)
[2018-03-26] MEDS ORDERED: PT OWN MED DRAWER 7, Y5N ONE ×3 (09:41→20:52)
[2018-03-26] MEDS: FOLIC ACID 5 MG/1 ML SQ SCH (09:53)
[2018-03-26] MEDS: LACTOBACILLUS ACIDOPHILUS 1 TABLET PO SCH ×2 (09:54→21:08)
[2018-03-26] MEDS: WITCH HAZEL 50% (TUCKS) 40 PAD/JAR PAD TP SCH ×2 (09:54→21:10)
[2018-03-26] MEDS: LIDOCAINE VISCOUS 2% ORAL/TOP 20 ML UNIT-DOSE CUP MM PRN ×2 (10:31→21:08)
[2018-03-26] MEDS: POTASSIUM CHLORIDE 20 MEQ in DEXTROSE 5%-WATER - 1,000 ML IVPB SCH ×2 (11:53→23:15)
[2018-03-26] MEDS: ACETAMINOPHEN 325 MG TABLET (FP) PO PRN ×2 (12:10→21:08)
--- NOTE | 2018-03-26 14:00 | PN ---
Progress Note, Physician History of Present Illness: wbc marginally increased platelet and h and h has decreased patients ulcers starting to look better patient starting to feel better has remained afebrile but tachy - Current Medication List Current Medications: Active Medications Acetaminophen (Tylenol -) 650 mg PO Q4H PRN PRN Reason: PAIN LEVEL 1 - 3 Last Admin: 03/26/18 12:10 Dose: 650 mg Folic Acid (Folic Acid Injection -) 1 mg SQ DAILY FLAVIO Stop: 03/27/18 10:01 Last Admin: 03/26/18 09:53 Dose: 1 mg IV Flush (Picc Line Flush) 8 ml IVPUSH PRN PRN PRN Reason: Protocol Potassium Chloride 20 meq/ (Dextrose) 1,010 mls @ 75 mls/hr IVPB Q13H [facility] Last Admin: 03/26/18 11:53 Dose: 75 mls/hr Cefepime HCl (Maxipime 1 Gm Premix Ivpb) 1 gm in 50 mls @ 100 mls/hr IVPB Q8H- IV FLAVIO; Protocol Stop: 03/26/18 17:59 Last Admin: 03/26/18 09:54 Dose: 100 mls/hr Clindamycin Phosphate 300 mg/ (Dextrose) 50 mls @ 100 mls/hr IVPB Q8H-IV [facility]LA[facility]IO; Protocol Stop: 03/26/18 17:59 Last Admin: 03/26/18 09:54 Dose: 100 mls/hr Lactobacillus Acidophilus (Bacid -) 1 tab PO BID [facility] Last Admin: 03/26/18 09:54 Dose: 1 tab Leucovorin Calcium (Leucovorin -) 25 mg PO Q6H [facility] Last Admin: 03/26/18 11:53 Dose: 25 mg Lidocaine HCl (Xylocaine 2% Viscous Oral -) 20 ml MM TID PRN PRN Reason: ORAL PAIN/MOUTH SORES Last Admin: 03/25/18 22:36 Dose: 20 ml Lidocaine/Aluminum/Magnesium/Simeth (Magic Mouthwash *Sjr Formula* -) 5 ml MM Q4HPO [facility] Last Admin: 03/26/18 09:53 Dose: 5 ml Morphine Sulfate (Morphine Sulfate) 2 mg IM Q6H PRN PRN Reason: PAIN LEVEL 7 - 10 Last Admin: 03/25/18 22:42 Dose: 2 mg Witch Chikis/Glycerin (Tucks Pads -) 1 pad TP BID [facility] Last Admin: 03/26/18 09:54 Dose: 1 pad - Objective Vital Signs: Vital Signs Temperature 98.0 F 03/26/18 10:00 Pulse Rate 92 H 03/26/18 10:00 Respiratory Rate 18 03/26/18 10:00 Blood Pressure 122/72 03/26/18 10:00 O2 Sat by Pulse Oximetry (%) 98 03/26/18 10:00 Constitutional: Yes: Calm, Mild Distress Cardiovascular: Yes: Regular Rate and Rhythm Respiratory: Yes: Regular, CTA Bilaterally Gastrointestinal: Yes: Normal Bowel Sounds, Soft Musculoskeletal: Yes: WNL Extremities: Yes: WNL Labs: CBC, BMP 03/26/18 06:30 03/26/18 06:30 INR, PTT INR 1.19 (0.83-1.09) H 03/21/18 16:50 Assessment/Plan Problem List - Problems (1) Stomatitis Code(s): K12.1 - OTHER FORMS OF STOMATITIS (2) Stomatitis, ulcerative Code(s): K12.1 - OTHER FORMS OF STOMATITIS (3) Neutropenic fever Code(s): D70.9 - NEUTROPENIA, UNSPECIFIED; R50.81 - FEVER PRESENTING WITH CONDITIONS CLASSIFIED ELSEWHERE 4 gm positive bacteremia Assessment/Plan A 62F with stomatitis, perianal ulcers and leukopenia coming in with fever and inability to eat also having blood cx positive which i think might be a contaminant continue iv abx monitor wbc monitor platelets will await for final plan then will decide next step
[2018-03-26] MEDS: MORPHINE SULFATE 2 MG/ML VIAL IM PRN (14:21)
[2018-03-26] MEDS ORDERED: MORPHINE SULFATE 2 MG/ML VIAL IVPUSH PRN (14:58)
--- NOTE | 2018-03-26 15:03 | PN ---
Physical Exam: SUBJECTIVE: Patient seen and examined this morning. Received Morphine x1 overnight. Continues to tolerate apple sauce and ensure. Denies fevers, chills, chest pain, SOB, nausea, vomiting, diarrhea, constipation. OBJECTIVE: Vital Signs Period Temp Pulse Resp BP Sys/Muniz Pulse Ox Last 24 Hr 97.6 F-99.5 F 92-104 18-18 122-146/69-82 97-98 GENERAL: Awake, alert, Decreased difficulty with speaking today, in no acute distress. EYES: PERRL, EOMI THROAT: Multiple mouth ulcers visible. Dried blood present over ulcers on the caudad lip however appears improved. Multiple bouts of pink/red saliva drooling from mouth. Patient is able to speak more clearly today and no longer limited to just grunts. NECK: No JVD. LUNGS: Breath sounds equal, clear to auscultation bilaterally. No wheezes. HEART: Regular rate and rhythm, normal S1 and S2 without murmur. ABDOMEN: Soft, nontender, not distended, normoactive bowel sounds, no guarding. EXTREMITIES: 2+ pulses, No peripheral edema. SKIN: Multiple Ulcers present between gluteal folds, without active drainage/ discharge, with no surrounding erythema or swelling. Tenderness surrounding area was improved. Laboratory Results - last 24 hr 03/23/18 03/25/18 03/26/18 06:00 20:15 06:30 WBC 1.2 L* RBC 2.36 L Hgb 7.5 L Hct 22.7 L MCV 96.0 MCH 31.9 MCHC 33.2 RDW 18.6 H Plt Count 49 L D MPV 11.7 H D Absolute Neuts (auto) 0.2 Neutrophils % 20.9 L D Lymphocytes % 47.7 H D Monocytes % 22.7 H D Eosinophils % 8.1 H D Basophils % 0.6 Nucleated RBC % 1 H Sodium Potassium Chloride Carbon Dioxide Anion Gap BUN Creatinine Creat Clearance w eGFR Random Glucose Calcium Total Bilirubin AST ALT Alkaline Phosphatase Total Protein Albumin Ur Random Sodium 8 Ur Random Potassium 43.1 Ur Random Chloride < 10 CMV DNA Qual PCR Negative 03/26/18 06:30 WBC RBC Hgb Hct MCV MCH MCHC RDW Plt Count MPV Absolute Neuts (auto) Neutrophils % Lymphocytes % Monocytes % Eosinophils % Basophils % Nucleated RBC % Sodium 146 H Potassium 3.4 L Chloride 111 H Carbon Dioxide 29 Anion Gap 6 L BUN 22 H Creatinine 1.3 H Creat Clearance w eGFR 41.64 Random Glucose 86 Calcium 8.8 Total Bilirubin 0.9 AST 26 ALT 33 Alkaline Phosphatase 114 D Total Protein 6.3 L Albumin 2.4 L Ur Random Sodium Ur Random Potassium Ur Random Chloride CMV DNA Qual PCR Microbiology 03/24/18 06:30 Blood - Peripheral Venous Blood Culture - Preliminary NO GROWTH OBTAINED AFTER 48 HOURS, INCUBATION TO CONTINUE FOR 3 DAYS. 03/24/18 06:40 Blood - Peripheral Venous Blood Culture - Preliminary NO GROWTH OBTAINED AFTER 48 HOURS, INCUBATION TO CONTINUE FOR 3 DAYS. 03/21/18 16:50 Blood - Peripheral Venous Blood Culture - Preliminary NO GROWTH OBTAINED AFTER 96 HOURS, INCUBATION TO CONTINUE FOR 1 DAYS. 03/21/18 16:45 Blood - Peripheral Venous Blood Culture - Final Staphylococcus Simulans [place] Species 03/22/18 10:30 Buttock - Left Gram Stain - Final 03/22/18 10:30 Buttock - Left Wound Culture - Preliminary Escherichia Coli Proteus Mirabilis Staphylococcus Coagulase Neg Diphtheroid/Corynebacterium Group D Strep Or Entero Coccus 03/22/18 10:30 Face Gram Stain - Final 03/22/18 10:30 Face Wound Culture - Final 03/21/18 18:33 Urine - Urine Clean Catch Urine Culture - Final NO GROWTH OBTAINED Active Medications Acetaminophen (Tylenol -) 650 mg PO Q4H PRN PRN Reason: PAIN LEVEL 1 - 3 Last Admin: 03/26/18 12:10 Dose: 650 mg Folic Acid (Folic Acid Injection -) 1 mg SQ DAILY FLAVIO Stop: 03/27/18 10:01 Last Admin: 03/26/18 09:53 Dose: 1 mg IV Flush (Picc Line Flush) 8 ml IVPUSH PRN PRN PRN Reason: Protocol Potassium Chloride 20 meq/ (Dextrose) 1,010 mls @ 75 mls/hr IVPB Q13H [facility] Last Admin: 03/26/18 11:53 Dose: 75 mls/hr Cefepime HCl (Maxipime 1 Gm Premix Ivpb) 1 gm in 50 mls @ 100 mls/hr IVPB Q8H- IV FLAVIO; Protocol Stop: 03/26/18 17:59 Last Admin: 03/26/18 09:54 Dose: 100 mls/hr Clindamycin Phosphate 300 mg/ (Dextrose) 50 mls @ 100 mls/hr IVPB Q8H-IV [facility]LA[facility]IO; Protocol Stop: 03/26/18 17:59 Last Admin: 03/26/18 09:54 Dose: 100 mls/hr Lactobacillus Acidophilus (Bacid -) 1 tab PO BID [facility] Last Admin: 03/26/18 09:54 Dose: 1 tab Leucovorin Calcium (Leucovorin -) 25 mg PO Q6H [facility] Last Admin: 03/26/18 11:53 Dose: 25 mg Lidocaine HCl (Xylocaine 2% Viscous Oral -) 20 ml MM TID PRN PRN Reason: ORAL PAIN/MOUTH SORES Last Admin: 03/25/18 22:36 Dose: 20 ml Lidocaine/Aluminum/Magnesium/Simeth (Magic Mouthwash *Sjr Formula* -) 5 ml MM Q4HPO [facility] Last Admin: 03/26/18 14:11 Dose: 5 ml Morphine Sulfate (Morphine Sulfate) 2 mg IM Q6H PRN PRN Reason: PAIN LEVEL 7 - 10 Last Admin: 03/26/18 14:21 Dose: 2 mg Witch Chikis/Glycerin (Tucks Pads -) 1 pad TP BID [facility] Last Admin: 03/26/18 09:54 Dose: 1 pad IMAGING: - CXR: elevated right hemidiaphragm, large heart, unfolded aorta, left-sided pacemaker and no sign of an acute process. The bones and soft tissues are intact. - CT Chest, Abdomen and Pelvis: No evidence of pneumonia or acute pathology within the chest. Cholelithiasis. No evidence of intra-abdominal abscess or acute pathology within the abdomen or pelvis. ASSESSMENT/PLAN: 62 y/o F presents with painful ulcers in her mouth and rectum was found to have neutropenic fever and admitted to Obs for sepsis. 1. Sepsis - Afebrile, HR 92-104, WBC 1.2 - CXR and UA noted above - Blood and urine cx noted above - Lactic acid 2.2 --> 1.8 - Continue Clindamycin, Cefepime - D5-1/2ns+30 Meq Kcl in 1,000 mls @ 100 mls/hr IV - Swab ulcers in Oropharynx and Gluteal folds for cultures, results noted above - ID (Dr. Lewis) consulted, appreciate rec's, continue cefepime, add clinda - Rheumatolgy (Dr. Canas) consulted, left message with service 2. Methotrexate Toxicity - Acute Stomatitis, Perianal ulcers, Leukopenia, Neutropenia - Possibly due to not taking Folic acid while taking Methotrexate, Patient admits she missed some folic acid doses - Hematology (Dr. Bailey) consulted, appreciate rec's, start leucovorin (03/23 ), and can change to folic acid in 2 or 3 days, will likely need BM biopsy - GI (Dr. Briseno) Consulted, appreciate rec's, will need CT A/P with contrast when able to take po - Continue Magic Mouthwash 5 ml MM Q4HPO - Continue Xylocaine 2% Viscous Oral 20 ml MM TID PRN - Continue Leucovorin 25 mg PO Q6H 3. Thrombocytopenia - Plt 246 on admission, 49 today - Hematology (Dr. Rivero) consulted, appreciate rec's, HIT Panel vs bone marrow biopsy - Hold Heparin for now, Use SCDs in bed - Neupogen pending bone marrow biopsy 4. Hypokalemia - Resolved - Ordered 40 mEq KPhos x 2 doses - Also receiving D5-1/2ns+30 Meq Kcl in 1,000 mls @ 100 mls/hr IV 5. HEATHER - BUN 22, Cr 1.3 - D5-1/2ns+30 Meq Kcl @ 100 mls/hr IV 6. Anemia - Unclear Etiology - Serial Stool Guaiacs, Reticulocyte count, Iron studies 7. FEN - D5-1/2ns+30 Meq Kcl @ 100 mls/hr IV - Hypernatremic, Continue to monitor - Full Liquid diet, Ensure ordered 8. PPX - DVT: SCDs Visit type - Emergency Visit Emergency Visit: Yes ED Registration Date: 03/22/18 Care time: The patient presented to the Emergency Department on the above date and was hospitalized for further evaluation of their emergent condition. - New Patient This patient is new to me today: No - Critical Care Critical Care patient: No
[2018-03-26 15:05] LABS: PLATELET ESTIMATE DECREASED
[2018-03-26] MEDS ORDERED: morphine SULFATE 10 MG/5 ML UNIT-DOSE CUP PO PRN (15:48)
--- NOTE | 2018-03-26 20:08 | PN ---
Physical Exam: SUBJECTIVE: Patient seen and examined lying in bed family bed side still complains of pain in her mouth. OBJECTIVE: Vital Signs Period Temp Pulse Resp BP Sys/Muniz Pulse Ox Last 24 Hr 97.6 F-99.5 F 89-104 18-18 122-146/69-82 97-98 HEENT: TONY, EOM Intact Oropharynx- mucositis with ulcers Cor: RSR, No murmurs, No gallops Lungs: Clear to P&A Abd: Soft, Normal bowel sounds, Ext:No significant edema Skin: No rashes, Integument intact Laboratory Results - last 24 hr 03/23/18 03/25/18 03/26/18 06:00 20:15 06:30 WBC 1.2 L* RBC 2.36 L Hgb 7.5 L Hct 22.7 L MCV 96.0 MCH 31.9 MCHC 33.2 RDW 18.6 H Plt Count 49 L D MPV 11.7 H D Absolute Neuts (auto) 0.2 Total Counted 100 Neutrophils % 20.9 L D Neutrophils % (Manual) 22.0 L D Band Neutrophils % 2.0 Lymphocytes % 47.7 H D Lymphocytes % (Manual) 48.0 H D Monocytes % 22.7 H D Monocytes % (Manual) 23 H D Eosinophils % 8.1 H D Eosinophils % (Manual) 5.0 H Basophils % 0.6 Nucleated RBC % 1 H Platelet Estimate Decreased Sodium Potassium Chloride Carbon Dioxide Anion Gap BUN Creatinine Creat Clearance w eGFR Random Glucose Calcium Total Bilirubin AST ALT Alkaline Phosphatase Total Protein Albumin Ur Random Sodium 8 Ur Random Potassium 43.1 Ur Random Chloride < 10 CMV DNA Qual PCR Negative 03/26/18 06:30 WBC RBC Hgb Hct MCV MCH MCHC RDW Plt Count MPV Absolute Neuts (auto) Total Counted Neutrophils % Neutrophils % (Manual) Band Neutrophils % Lymphocytes % Lymphocytes % (Manual) Monocytes % Monocytes % (Manual) Eosinophils % Eosinophils % (Manual) Basophils % Nucleated RBC % Platelet Estimate Sodium 146 H Potassium 3.4 L Chloride 111 H Carbon Dioxide 29 Anion Gap 6 L BUN 22 H Creatinine 1.3 H Creat Clearance w eGFR 41.64 Random Glucose 86 Calcium 8.8 Total Bilirubin 0.9 AST 26 ALT 33 Alkaline Phosphatase 114 D Total Protein 6.3 L Albumin 2.4 L Ur Random Sodium Ur Random Potassium Ur Random Chloride CMV DNA Qual PCR Active Medications Generic Name Dose Route Start Last Admin Trade Name Freq PRN Reason Stop Dose Admin Acetaminophen 650 mg 03/22/18 01:28 03/26/18 12:10 Tylenol - PO 650 mg Q4H PRN Administration PAIN LEVEL 1 - 3 Folic Acid 1 mg 03/24/18 20:15 03/26/18 09:53 Folic Acid Injection - SQ 03/27/18 10:01 1 mg DAILY FLAVIO Administration IV Flush 8 ml 03/25/18 17:52 Picc Line Flush IVPUSH PRN PRN Protocol Potassium Chloride 20 meq/ 1,010 mls @ 75 mls/hr 03/25/18 09:00 03/26/18 11: 53 Dextrose IVPB 75 mls/hr Q13H [facility] Administration Cefepime HCl 1 gm in 50 mls @ 100 mls/hr 03/26/18 18:45 03/26/18 18:50 Maxipime 1 Gm Premix Ivpb IVPB 100 mls/hr Q8H-IV [facility] Administration Protocol Clindamycin Phosphate 300 mg in 50 mls @ 104 mls/hr 03/26/18 18:45 Cleocin 300 Mg Premix Ivpb IVPB Q8H-IV [facility] Protocol Lactobacillus Acidophilus 1 tab 03/22/18 10:00 03/26/18 09:54 Bacid - PO 1 tab BID [facility] Administration Leucovorin Calcium 25 mg 03/25/18 18:00 03/26/18 17:54 Leucovorin - PO 25 mg Q6H [facility] Administration Lidocaine HCl 20 ml 03/22/18 14:00 03/26/18 10:31 Xylocaine 2% Viscous Oral - MM 20 ml TID PRN Administration ORAL PAIN/MOUTH SORES Lidocaine/Aluminum/Magnesium/Simeth 5 ml 03/22/18 18:00 03/26/18 17:53 Magic Mouthwash *Sjr Formula* - MM 5 ml Q4HPO [facility] Administration Morphine Sulfate 5 mg 03/26/18 15:48 Morphine 10 Mg/5 Ml Liquid PO Q6H PRN PAIN LEVEL 6-10 Witch Chikis/Glycerin 1 pad 03/22/18 22:00 03/26/18 09:54 Tucks Pads - TP 1 pad BID [facility] Administration ASSESSMENT/PLAN: Pancytopenia Mucositis Rheumatoid arthritis s/p Methotrexate mild renal insufficiency Plan continue leucovorum to 25 mg q 6h. iv and sq folic acid. considering bone marrow biopsy if no further recovery of cytopenias. Visit type - Emergency Visit Emergency Visit: Yes ED Registration Date: 03/22/18 Care time: The patient presented to the Emergency Department on the above date and was hospitalized for further evaluation of their emergent condition. - New Patient This patient is new to me today: No - Critical Care Critical Care patient: No
[2018-03-26] MEDS: CLINDAMYCIN 300 MG PREMIX IVPB 300 MG/50 ML BAG IVPB SCH (21:09)
--- NOTE | 2018-03-26 21:28 | HOSP ---
Physical Examination Vital Signs: Vital Signs Temperature 98.1 F 03/26/18 18:18 Pulse Rate 84 03/26/18 18:18 Respiratory Rate 18 03/26/18 18:18 Blood Pressure 114/56 03/26/18 18:18 O2 Sat by Pulse Oximetry (%) 98 03/26/18 10:00 Labs: CBC, BMP 03/26/18 06:30 03/26/18 06:30 Hospitalist Encounter Assessment: IV access established. Continue Leucovorin 25 mg IV q6h Morphine 2mg IV q6h PRN for pain 7-10
[2018-03-26] MEDS: morphine SULFATE 4 MG/ML VIAL IVPUSH PRN (21:44)
--- NOTE | 2018-03-26 23:09 | PN ---
Teaching Attending Note Name of Resident: Fredi Tello ATTENDING PHYSICIAN STATEMENT I saw and evaluated the patient. I reviewed the resident's note and discussed the case with the resident. I agree with the resident's findings and plan as documented. ASSESSMENT AND PLAN: Non-recovering neutropenia, and progressive anemia and thrombocytpenia, despite limited and reote MTX exposure, is worriesome and raises concern about an independant process. Will continue to monitor closely, with low threshold for bone marrow biopsy.
[2018-03-27] MEDS: CLINDAMYCIN 300 MG PREMIX IVPB 300 MG/50 ML BAG IVPB SCH (02:50)
[2018-03-27] MEDS: CEFEPIME HCL/D5W 1 GM/50 ML BAG IVPB SCH ×3 (02:50→17:29)
[2018-03-27] MEDS: MAG HYDROX/ALH/SMC/DPHA/LIDO 240 ML MOUTHWASH MM SCH ×6 (02:59→21:19)
[2018-03-27] MEDS: WATER IVPB SCH ×4 (03:11→20:27)
[2018-03-27] MEDS: LEUCOVORIN IVPB SCH ×4 (03:11→20:27)
[2018-03-27] MEDS: DEXTROSE 5% IVPB SCH ×4 (03:11→20:27)
[2018-03-27] MEDS: morphine SULFATE 4 MG/ML VIAL IVPUSH PRN (03:57)
[2018-03-27] MEDS ORDERED: PT OWN MED DRAWER 7, Y5N ONE ×10 (06:27→20:08)
[2018-03-27 06:44] LABS: BASO % 0.3 % (0-2.0); EOS % 6.1 % (0-4.5); HEMATOCRIT 21.7 % (32.4-45.2); HEMOGLOBIN 7.3 GM/dL (10.7-15.3); MCH 31.9 pg (25.7-33.7); MCHC 33.5 g/dl (32.0-36.0); MEAN CELL VOLUME 95.4 fl (80-96); MEAN PLT VOLUME 11.3 fl (7.5-11.1); MONO % 39.8 % (3.8-10.2); NEUT % 11.8 % (42.8-82.8); PLATELET COUNT 46 K/MM3 (134-434); RBC 2.28 M/mm3 (3.60-5.2); RDW 18.3 % (11.6-15.6)
[2018-03-27 07:18] LABS: ALBUMIN 2.3 g/dl (3.4-5.0); ANION GAP 9 (8-16); BILIRUBIN,TOTAL 0.7 mg/dL (0.2-1.0); BLOOD UREA NITROGEN 15 mg/dL (7-18); CALCIUM 8.3 mg/dL (8.5-10.1); CHLORIDE 108 mmol/L (98-107); CO2 27 mmol/L (21-32); CREATININE 1.1 mg/dL (0.55-1.02); GLUCOSE,RANDOM 93 mg/dL (74-106); MAGNESIUM 1.9 mg/dL (1.8-2.4); PHOSPHOROUS 1.5 mg/dL (2.5-4.9); POTASSIUM 3.1 mmol/L (3.5-5.1); SGOT/AST 23 U/L (15-37); SGPT/ALT 26 U/L (12-78); SODIUM 144 mmol/L (136-145); TOT PROT 5.8 g/dl (6.4-8.2)
[2018-03-27 07:19] LABS: ALK PHOS 113 U/L (45-117)
--- NOTE | 2018-03-27 07:44 | PN ---
Teaching Attending Note Name of Resident: Haylee Portillo ATTENDING PHYSICIAN STATEMENT I saw and evaluated the patient. I reviewed the resident's note and discussed the case with the resident. I agree with the resident's findings and plan as documented with exceptions below. SUBJECTIVE: Patient seen and examined, overall improved, tolerating liquid diet well. reports rash right flank.abdomen, itchy improved with benadryl overnight. OBJECTIVE: Vital Signs Period Temp Pulse Resp BP Sys/Muniz Pulse Ox Last 24 Hr 98.0 F-99.3 F 84-92 18-20 114-132/56-82 98-98 Intake & Output 03/24/18 03/25/18 03/26/18 03/27/18 23:59 23:59 23:59 23:59 Intake Total 1200 860 865 240 Balance 1200 860 865 240 Weight 185 lb General: sitting in bed in no acute distress HEENT: white plaque on hard palate and tongue improving, ulcers healing with minimal clotted blood Skin: right flank, lower chest extending lateral abdominal/chest wall maculopapular rash with some areas of confluence pruritic Active Medications Acetaminophen (Tylenol -) 650 mg PO Q4H PRN PRN Reason: PAIN LEVEL 1 - 3 Last Admin: 03/26/18 21:08 Dose: 650 mg Folic Acid (Folic Acid Injection -) 1 mg SQ DAILY [facility] Stop: 03/27/18 10:01 Last Admin: 03/26/18 09:53 Dose: 1 mg IV Flush (Picc Line Flush) 8 ml IVPUSH PRN PRN PRN Reason: Protocol Potassium Chloride 20 meq/ (Dextrose) 1,010 mls @ 75 mls/hr IVPB Q13H [facility] Last Admin: 03/26/18 23:15 Dose: 75 mls/hr Cefepime HCl (Maxipime 1 Gm Premix Ivpb) 1 gm in 50 mls @ 100 mls/hr IVPB Q8H- IV [facility]IO; Protocol Last Admin: 03/27/18 02:50 Dose: Not Given Clindamycin Phosphate (Cleocin 300 Mg Premix Ivpb) 300 mg in 50 mls @ 104 mls/ hr IVPB Q8H-IV [facility]; Protocol Last Admin: 03/27/18 02:50 Dose: Not Given Leucovorin Calcium 25 mg/ (Dextrose) 51.25 mls @ 205 mls/hr IVPB Q6H-IV [facility] Stop: 03/28/18 21:14 Last Admin: 03/27/18 03:11 Dose: 205 mls/hr Potassium Phosphate 25 mm/ (Dextrose) 258.3333 mls @ 62.5 mls/hr IVPB ONCE ONE Stop: 03/27/18 11:45 Lactobacillus Acidophilus (Bacid -) 1 tab PO BID [facility] Last Admin: 03/26/18 21:08 Dose: 1 tab Lidocaine HCl (Xylocaine 2% Viscous Oral -) 20 ml MM TID PRN PRN Reason: ORAL PAIN/MOUTH SORES Last Admin: 03/26/18 21:08 Dose: 20 ml Lidocaine/Aluminum/Magnesium/Simeth (Magic Mouthwash *Sjr Formula* -) 5 ml MM Q4HPO [facility] Last Admin: 03/27/18 06:20 Dose: 5 ml Morphine Sulfate (Morphine 10 Mg/5 Ml Liquid) 5 mg PO Q6H PRN PRN Reason: PAIN LEVEL 6-10 Morphine Sulfate (Morphine Sulfate) 2 mg IVPUSH Q6H PRN PRN Reason: PAIN LEVEL 7 - 10 Last Admin: 03/27/18 03:57 Dose: 2 mg Witch Chikis/Glycerin (Tucks Pads -) 1 pad TP BID [facility] Last Admin: 03/26/18 21:10 Dose: 1 pad ASSESSMENT AND PLAN: 62 yof with PMHx of RA on Methotrexate (for years, stopped 2 weeks ago), admitted with painful ulcers in her mouth (since August) and rectum, progressive with decreased oral intake, found with neutropenic fevers, bacteremia -Acute stomatitis/perianal ulcers/Leucopenia with severe absolute neutropenia, suspected Methotrexate toxicity -Neutropenic fevers, with staph stimulans bacteremia -Anemia, ?bone marrow suppression/myeloproliferative disorder, low suspicion for acute bleed -Thrombocytopenia, ?Myeloproliferative disorder, r/o HIT -Folic acid deficiency -RA on Methotrexate -Hypokalemia -Hypophosphatemia -HEATHER, ?from poor oral intake -Hypernatremia, suspect from poor oral intake -Hyperchloremia, suspect iatrogenic -Failure to thrive, from above. -Maculopapular rash, ?Drug allergy ?clindamycin vs contact from skin lotion. Plan: Discussed with Dr. Rivero. Transfuse 1 unit pRBC. Trend platelets, follow up HIT Panel. Bone marrow biopsy per hematology Hold heparin for now, SCDs when in bed Leucovorum with sq folate. Neupogen pending bone marrow biopsy. Afebrile, final blood cultures noted. ID input appreciated. Rash today, d/c clindacmyin. Cefepime per ID. Benadryl prn for rash and monitor for now. Rheumatology input with Dr. Canas, case discussed with him. replete k and phos. Cr improved. IVF and encourage oral intake. Monitor renal function. DVTPPx with SCDs as above. Dispo pending resolution of medical issues. Plan discussed with patient in detail, all questions answered.
--- NOTE | 2018-03-27 08:12 | PN ---
Progress Note (short form) - Note Progress Note: Patient seen and examined Stomatitis/mucositis improving Still only able to tolerate cold water Continuing on IV's Last Vital Signs Temp Pulse Resp BP Pulse Ox 98.3 F 92 H 20 122/72 98 03/27/18 05:56 03/27/18 05:56 03/27/18 05:56 03/27/18 05:56 03/26/18 21:00 HEENT: TONY, EOM Intact Oropharynx: mucositis Neck: Supple Cor: RSR, No murmurs, No gallops Lungs: Clear to P&A Abd: Soft, Normal bowel sounds, No organomegaly Ext:No significant edema Skin: No rashes, Integument intact CBC, BMP 03/27/18 06:24 03/27/18 06:24 Current Medications Generic Name Dose Route Start Last Admin Trade Name Freq PRN Reason Stop Dose Admin Acetaminophen 650 mg 03/22/18 01:28 03/26/18 21:08 Tylenol - PO 650 mg Q4H PRN Administration PAIN LEVEL 1 - 3 Folic Acid 1 mg 03/24/18 20:15 03/26/18 09:53 Folic Acid Injection - SQ 03/27/18 10:01 1 mg DAILY FLAVIO Administration IV Flush 8 ml 03/25/18 17:52 Picc Line Flush IVPUSH PRN PRN Protocol Potassium Chloride 20 meq/ 1,010 mls @ 75 mls/hr 03/25/18 09:00 03/26/18 23: 15 Dextrose IVPB 75 mls/hr Q13H [facility] Administration Cefepime HCl 1 gm in 50 mls @ 100 mls/hr 03/26/18 18:45 03/27/18 02:50 Maxipime 1 Gm Premix Ivpb IVPB Not Given Q8H-IV [facility] Protocol Clindamycin Phosphate 300 mg in 50 mls @ 104 mls/hr 03/26/18 18:45 03/27/18 02:50 Cleocin 300 Mg Premix Ivpb IVPB Not Given Q8H-IV [facility] Protocol Leucovorin Calcium 25 mg/ 51.25 mls @ 205 mls/hr 03/27/18 03:00 03/27/18 03: 11 Dextrose IVPB 03/28/18 21:14 205 mls/hr Q6H-IV [facility] Administration Potassium Phosphate 25 mm/ 258.3333 mls @ 62.5 mls/hr 03/27/18 07:38 Dextrose IVPB 03/27/18 11:45 ONCE ONE Lactobacillus Acidophilus 1 tab 03/22/18 10:00 03/26/18 21:08 Bacid - PO 1 tab BID [facility] Administration Lidocaine HCl 20 ml 03/22/18 14:00 03/26/18 21:08 Xylocaine 2% Viscous Oral - MM 20 ml TID PRN Administration ORAL PAIN/MOUTH SORES Lidocaine/Aluminum/Magnesium/Simeth 5 ml 03/22/18 18:00 03/27/18 06:20 Magic Mouthwash *Sjr Formula* - MM 5 ml Q4HPO [facility] Administration Morphine Sulfate 5 mg 03/26/18 15:48 Morphine 10 Mg/5 Ml Liquid PO Q6H PRN PAIN LEVEL 6-10 Morphine Sulfate 2 mg 03/26/18 20:32 03/27/18 03:57 Morphine Sulfate IVPUSH 2 mg Q6H PRN Administration PAIN LEVEL 7 - 10 Witch Chikis/Glycerin 1 pad 03/22/18 22:00 03/26/18 21:10 Tucks Pads - TP 1 pad BID [facility] Administration ImpressioN: Pancytopenia ---? secondary to MTX toxicity Showing signs of BM recovery with monocytosis ; monocytes typically precede PMN cell return to circulation Would expect mucositis likewise to have faster recovery with PMN improvement Fall in platelet count disturbing in light of WBC improvement .?? secondary to drug ?? other ;HIT antibody pending. If HIT antibody negative would resume Lovenox when platelets > 50K. Decrease Hct- would transfuse packed cells. Still monitoring for now. holding off on BM. For today needs K+phos repletion.
[2018-03-27] MEDS ORDERED: POTASSIUM PHOSPHATE 25 MM in DEXTROSE 5%-WATER - 500 ML IVPB ONE (09:00)
[2018-03-27] MEDS: LACTOBACILLUS ACIDOPHILUS 1 TABLET PO SCH ×2 (10:10→21:19)
--- NOTE | 2018-03-27 10:10 | PN ---
Progress Note, Physician History of Present Illness: patient doing much better mouth looks much better has developed a rash according to staff it developed after the clinda and according to the patient developed after the body lotion - Current Medication List Current Medications: Active Medications Acetaminophen (Tylenol -) 650 mg PO Q4H PRN PRN Reason: PAIN LEVEL 1 - 3 Last Admin: 03/26/18 21:08 Dose: 650 mg IV Flush (Picc Line Flush) 8 ml IVPUSH PRN PRN PRN Reason: Protocol Potassium Chloride 20 meq/ (Dextrose) 1,010 mls @ 75 mls/hr IVPB Q13H [facility] Last Admin: 03/26/18 23:15 Dose: 75 mls/hr Cefepime HCl (Maxipime 1 Gm Premix Ivpb) 1 gm in 50 mls @ 100 mls/hr IVPB Q8H- IV [facility]; Protocol Last Admin: 03/27/18 02:50 Dose: Not Given Clindamycin Phosphate (Cleocin 300 Mg Premix Ivpb) 300 mg in 50 mls @ 104 mls/ hr IVPB Q8H-IV [facility]; Protocol Last Admin: 03/27/18 02:50 Dose: Not Given Leucovorin Calcium 25 mg/ (Dextrose) 51.25 mls @ 205 mls/hr IVPB Q6H-IV [facility] Stop: 03/28/18 21:14 Last Admin: 03/27/18 03:11 Dose: 205 mls/hr Potassium Phosphate 25 mm/ (Dextrose) 508.3333 mls @ 62.5 mls/hr IVPB ONCE ONE Stop: 03/27/18 17:07 Lactobacillus Acidophilus (Bacid -) 1 tab PO BID [facility] Last Admin: 03/26/18 21:08 Dose: 1 tab Lidocaine HCl (Xylocaine 2% Viscous Oral -) 20 ml MM TID PRN PRN Reason: ORAL PAIN/MOUTH SORES Last Admin: 03/26/18 21:08 Dose: 20 ml Lidocaine/Aluminum/Magnesium/Simeth (Magic Mouthwash *Sjr Formula* -) 5 ml MM Q4HPO [facility] Last Admin: 03/27/18 06:20 Dose: 5 ml Morphine Sulfate (Morphine 10 Mg/5 Ml Liquid) 5 mg PO Q6H PRN PRN Reason: PAIN LEVEL 6-10 Morphine Sulfate (Morphine Sulfate) 2 mg IVPUSH Q6H PRN PRN Reason: PAIN LEVEL 7 - 10 Last Admin: 03/27/18 03:57 Dose: 2 mg Witch Chikis/Glycerin (Tucks Pads -) 1 pad TP BID [facility] Last Admin: 03/26/18 21:10 Dose: 1 pad - Objective Vital Signs: Vital Signs Temperature 98.3 F 03/27/18 05:56 Pulse Rate 92 H 03/27/18 05:56 Respiratory Rate 20 03/27/18 05:56 Blood Pressure 122/72 03/27/18 05:56 O2 Sat by Pulse Oximetry (%) 98 03/26/18 21:00 Constitutional: Yes: No Distress, Calm HENT: Yes: Other (mouth continues to improve) Cardiovascular: Yes: Regular Rate and Rhythm Respiratory: Yes: Regular, CTA Bilaterally Gastrointestinal: Yes: Normal Bowel Sounds, Soft Musculoskeletal: Yes: WNL Extremities: Yes: WNL Neurological: Yes: Alert, Oriented Psychiatric: Yes: Alert, Oriented Labs: CBC, BMP 03/27/18 06:24 03/27/18 06:24 INR, PTT INR 1.19 (0.83-1.09) H 03/21/18 16:50 Assessment/Plan Problem List - Problems (1) Stomatitis Code(s): K12.1 - OTHER FORMS OF STOMATITIS (2) Stomatitis, ulcerative Code(s): K12.1 - OTHER FORMS OF STOMATITIS (3) Neutropenic fever Code(s): D70.9 - NEUTROPENIA, UNSPECIFIED; R50.81 - FEVER PRESENTING WITH CONDITIONS CLASSIFIED ELSEWHERE 4 gm positive bacteremia Assessment/Plan A 62F with stomatitis, perianal ulcers and leukopenia coming in with fever and inability to eat also having blood cx positive which i think might be a contaminant continue iv abx monitor wbc monitor platelets will await for final plan then will decide next step wbc has increased platelets and hand h has decreased slightly i am going to hold clinda also no body lotion jackson ee how patient does
[2018-03-27] MEDS: FOLIC ACID 5 MG/1 ML SQ SCH (10:25)
--- NOTE | 2018-03-27 11:46 | PN ---
Physical Exam: SUBJECTIVE: Patient seen and examined this morning. Received Morphine overnight. Additionally developed a rash and was given Benadryl. Denies fevers, chills, chest pain, SOB, nausea, vomiting, diarrhea, constipation. OBJECTIVE: Vital Signs Period Temp Pulse Resp BP Sys/Muniz Pulse Ox Last 24 Hr 98.1 F-99.3 F 84-92 18-20 114-132/56-82 98 GENERAL: Awake, alert, Ability to speak continues to improve, in no acute distress. EYES: PERRL, EOMI THROAT: Multiple mouth ulcers visible. Ulcers present over the caudad lip continue to improve. Drooling has decreased today. Speech is more clear NECK: No JVD. LUNGS: Breath sounds equal, clear to auscultation bilaterally. No wheezes. HEART: Regular rate and rhythm, normal S1 and S2 without murmur. ABDOMEN: Soft, nontender, not distended, normoactive bowel sounds, no guarding. EXTREMITIES: 2+ pulses, No peripheral edema. SKIN: Ulcers present between gluteal folds continue to improve, decreased tenderness, without active drainage/discharge, with no surrounding erythema or swelling. Laboratory Results - last 24 hr 03/23/18 03/26/18 03/27/18 06:00 06:30 06:24 WBC 2.0 L RBC 2.28 L Hgb 7.3 L Hct 21.7 L MCV 95.4 MCH 31.9 MCHC 33.5 RDW 18.3 H Plt Count 46 L MPV 11.3 H Absolute Neuts (auto) 0.2 L Total Counted 100 Neutrophils % 11.8 L D Neutrophils % (Manual) 22.0 L D Band Neutrophils % 2.0 Lymphocytes % 42.0 H Lymphocytes % (Manual) 48.0 H D Monocytes % 39.8 H Monocytes % (Manual) 23 H D Eosinophils % 6.1 H Eosinophils % (Manual) 5.0 H Basophils % 0.3 Nucleated RBC % 3 H Platelet Estimate Decreased Sodium Potassium Chloride Carbon Dioxide Anion Gap BUN Creatinine Creat Clearance w eGFR Random Glucose Calcium Phosphorus Magnesium Total Bilirubin AST ALT Alkaline Phosphatase Total Protein Albumin CMV DNA Qual PCR Negative Blood Type Antibody Screen Crossmatch 03/27/18 03/27/18 06:24 08:20 WBC RBC Hgb Hct MCV MCH MCHC RDW Plt Count MPV Absolute Neuts (auto) Total Counted Neutrophils % Neutrophils % (Manual) Band Neutrophils % Lymphocytes % Lymphocytes % (Manual) Monocytes % Monocytes % (Manual) Eosinophils % Eosinophils % (Manual) Basophils % Nucleated RBC % Platelet Estimate Sodium 144 Potassium 3.1 L Chloride 108 H Carbon Dioxide 27 Anion Gap 9 BUN 15 Creatinine 1.1 H Creat Clearance w eGFR 50.50 Random Glucose 93 Calcium 8.3 L Phosphorus 1.5 L Magnesium 1.9 Total Bilirubin 0.7 AST 23 ALT 26 Alkaline Phosphatase 113 Total Protein 5.8 L Albumin 2.3 L CMV DNA Qual PCR Blood Type O POSITIVE Antibody Screen Negative Crossmatch See Detail Microbiology 03/22/18 10:30 Face Gram Stain - Final 03/22/18 10:30 Face Wound Culture - Final 03/22/18 10:30 Buttock - Left Gram Stain - Final 03/22/18 10:30 Buttock - Left Wound Culture - Final Escherichia Coli Proteus Mirabilis Staphylococcus Coagulase Neg Diphtheroid/Corynebacterium Aerococcus Viridans 03/24/18 06:40 Blood - Peripheral Venous Blood Culture - Preliminary NO GROWTH OBTAINED AFTER 72 HOURS, INCUBATION TO CONTINUE FOR 2 DAYS. 03/24/18 06:30 Blood - Peripheral Venous Blood Culture - Preliminary NO GROWTH OBTAINED AFTER 72 HOURS, INCUBATION TO CONTINUE FOR 2 DAYS. 03/21/18 16:50 Blood - Peripheral Venous Blood Culture - Final NO GROWTH AFTER 5 DAYS INCUBATION 03/21/18 16:45 Blood - Peripheral Venous Blood Culture - Final Staphylococcus Simulans [place] Species 03/21/18 18:33 Urine - Urine Clean Catch Urine Culture - Final NO GROWTH OBTAINED Active Medications Acetaminophen (Tylenol -) 650 mg PO Q4H PRN PRN Reason: PAIN LEVEL 1 - 3 Last Admin: 03/26/18 21:08 Dose: 650 mg Diphenhydramine HCl (Benadryl -) 25 mg PO TID PRN PRN Reason: FLUSH IV Flush (Picc Line Flush) 8 ml IVPUSH PRN PRN PRN Reason: Protocol Potassium Chloride 20 meq/ (Dextrose) 1,010 mls @ 75 mls/hr IVPB Q13H [facility] Last Admin: 03/26/18 23:15 Dose: 75 mls/hr Cefepime HCl (Maxipime 1 Gm Premix Ivpb) 1 gm in 50 mls @ 100 mls/hr IVPB Q8H- IV [facility]; Protocol Last Admin: 03/27/18 02:50 Dose: Not Given Leucovorin Calcium 25 mg/ (Dextrose) 51.25 mls @ 205 mls/hr IVPB Q6H-IV [facility] Stop: 03/28/18 21:14 Last Admin: 03/27/18 03:11 Dose: 205 mls/hr Potassium Phosphate 25 mm/ (Dextrose) 508.3333 mls @ 62.5 mls/hr IVPB ONCE ONE Stop: 03/27/18 17:07 Lactobacillus Acidophilus (Bacid -) 1 tab PO BID [facility] Last Admin: 03/27/18 10:10 Dose: 1 tab Lidocaine HCl (Xylocaine 2% Viscous Oral -) 20 ml MM TID PRN PRN Reason: ORAL PAIN/MOUTH SORES Last Admin: 03/26/18 21:08 Dose: 20 ml Lidocaine/Aluminum/Magnesium/Simeth (Magic Mouthwash *Sjr Formula* -) 5 ml MM Q4HPO [facility] Last Admin: 03/27/18 10:18 Dose: 5 ml Morphine Sulfate (Morphine 10 Mg/5 Ml Liquid) 5 mg PO Q6H PRN PRN Reason: PAIN LEVEL 6-10 Morphine Sulfate (Morphine Sulfate) 2 mg IVPUSH Q6H PRN PRN Reason: PAIN LEVEL 7 - 10 Last Admin: 03/27/18 03:57 Dose: 2 mg Witch Chikis/Glycerin (Tucks Pads -) 1 pad TP BID [facility] Last Admin: 03/26/18 21:10 Dose: 1 pad IMAGING: - CXR: elevated right hemidiaphragm, large heart, unfolded aorta, left-sided pacemaker and no sign of an acute process. The bones and soft tissues are intact. - CT Chest, Abdomen and Pelvis: No evidence of pneumonia or acute pathology within the chest. Cholelithiasis. No evidence of intra-abdominal abscess or acute pathology within the abdomen or pelvis. ASSESSMENT/PLAN: 62 y/o F presents with painful ulcers in her mouth and rectum was found to have neutropenic fever and admitted to Obs for sepsis. 1. Rash - Patient developed rash on torso overnight when given Clindamycin dose. She had also just put lotion on herself. - Was given Benadryl 25mg x1 over night - Rash this AM improved, decreased erythema and itchiness - ID (Dr. Lewis) Consulted, Appreciate rec's, hold clinda, no body lotion - Ordered Diphenhydramine HCl 25 mg PO TID PRN 2. Sepsis - Afebrile, HR 84-92, WBC 2.0 - CXR and UA noted above - Blood and urine cx noted above - Lactic acid 2.2 --> 1.8 - Continue Cefepime - Clindamycin D/C'ed as patient developed rash overnight when it was given - D5-1/2ns+30 Meq Kcl in 1,000 mls @ 100 mls/hr IV - Swab ulcers in Oropharynx and Gluteal folds for cultures, results noted above - ID (Dr. Lewis) consulted, appreciate rec's, continue cefepime - Rheumatolgy (Dr. Canas) consulted, left message with service 3. Methotrexate Toxicity - Acute Stomatitis, Perianal ulcers, Leukopenia, Neutropenia - Possibly due to not taking Folic acid while taking Methotrexate, Patient admits she missed some folic acid doses - Hematology (Dr. Rivero) consulted, appreciate rec's, Showing signs of BM recovery with monocytosis, If HIT antibody negative would resume Lovenox when platelets > 50K. Would transfuse packed cells. Holding off on BM. - GI (Dr. Briseno) Consulted, appreciate rec's, will need CT A/P with contrast when able to take po - Continue Magic Mouthwash 5 ml MM Q4HPO - Continue Xylocaine 2% Viscous Oral 20 ml MM TID PRN - Continue Leucovorin 25 mg PO Q6H (Started on 03/23) 4. Thrombocytopenia - Plt 246 on admission, 46 today - Hematology (Dr. Rivero) consulted, appreciate rec's, Would transfuse packed cells - 1 Unit pRBC's transfused (03/27) - Hold Heparin for now, Use SCDs in bed - Neupogen pending bone marrow biopsy - HIT Panel pending 5. Hypokalemia - Resolved - Ordered 40 mEq KPhos x 2 doses - Also receiving D5-1/2ns+30 Meq Kcl in 1,000 mls @ 100 mls/hr IV 6. HEATHER - BUN 22, Cr 1.3 - D5-1/2ns+30 Meq Kcl @ 100 mls/hr IV 7. Anemia - Unclear Etiology - Serial Stool Guaiacs, Reticulocyte count, Iron studies 8. FEN - D5-1/2ns+30 Meq Kcl @ 100 mls/hr IV - Phos and K+ repleted, Continue to monitor - Full Liquid diet, Ensure ordered 9. PPX - DVT: SCDs Visit type - Emergency Visit Emergency Visit: Yes ED Registration Date: 03/22/18 Care time: The patient presented to the Emergency Department on the above date and was hospitalized for further evaluation of their emergent condition. - New Patient This patient is new to me today: No - Critical Care Critical Care patient: No
[2018-03-27] MEDS: ACETAMINOPHEN 325 MG TABLET (FP) PO PRN (13:28)
[2018-03-27] MEDS: WITCH HAZEL 50% (TUCKS) 40 PAD/JAR PAD TP SCH (14:29)
[2018-03-27 15:13] LABS: ANISOCYTOSIS 1+; MACROCYTOSIS 1+; PLATELET ESTIMATE DECREASED
[2018-03-27] MEDS: POTASSIUM CHLORIDE 20 MEQ in DEXTROSE 5%-WATER - 1,000 ML IVPB SCH (15:45)
--- NOTE | 2018-03-27 19:29 | CONSULT ---
Consult Consult Specialty:: Rheumatology - History of Present Illness History of Present Illness: 62 y/o female with history of rheumatoid arthritis treated with Methotrexate, hypothyroidism, S/P pacemaker, admitted with painful ulcers in her mouth and rectum. HPI. The patient reports that on February 27 she developed oral ulcers and 2 days later sores in rectum. The ulcers became very severe with inability to speak or eat and lost 15 lb. On 03/25/18 she was started on Leucovorin, initially PO and today IV, resulting in significant improvement. Laboratory work-up on admission revealed a WBC of 1.0, today was 2.0, creatinine 1.1, rheumatoid factor 112.2 and DRE 1:160 with homogeneous pattern. On admission Temp was 102.5. Since 03/25 not febrile. Rheumatoid arthritis. Diagnosed with RA 20 years ago. Treated with Enbrel from 2008 to 2009 and then with Methotrexate until the present time. Apparently she was taking 15 mg per week divided in 2 days per week (?) She did not receive other DMARD. Initially she received Folic acid however it was discontinued 2 years ago. At the present time she reports mild pain in hands and knees and 1 hour morning stiffness. - History Source History Provided By: Patient, Medical Record - Past Medical History Rheumatology: Yes: Other (See HPI) Endocrine: Yes: Hypothyroidism - Smoking History Smoking history: Current every day smoker Have you smoked in the past 12 months: Yes Home Medications - Allergies Allergies/Adverse Reactions: Allergies Allergy/AdvReac Type Severity Reaction Status Date / Time lisinopril Allergy Severe Swelling Verified 03/26/18 21:45 - Home Medications Home Medications: Ambulatory Orders Furosemide 80 mg PO DAILY 03/24/18 Review of Systems - Review of Systems Constitutional: reports: Malaise Eyes: reports: No Symptoms HENT: reports: Other (Painful oral ulcers) Neck: reports: No Symptoms Cardiovascular: reports: No Symptoms Respiratory: reports: No Symptoms Gastrointestinal: reports: Other (Painful rectal ulcers) Musculoskeletal: reports: Other (See HPI) Physical Exam Vital Signs: Vital Signs Temperature 100.6 F H 03/27/18 13:00 Pulse Rate 90 03/27/18 13:00 Respiratory Rate 20 03/27/18 13:00 Blood Pressure 121/75 03/27/18 13:00 O2 Sat by Pulse Oximetry (%) 98 03/26/18 21:00 Constitutional: Yes: Severe Distress Eyes: Yes: WNL HENT: Yes: Other (Significant oral ulcers) Cardiovascular: Yes: WNL Respiratory: Yes: WNL Gastrointestinal: Yes: WNL Musculoskeletal: Yes: Other (Tenderness in the right 3rd PIP with difficulty in extending the joint. No other active joints.) Labs: CBC, BMP 03/27/18 06:24 03/27/18 06:24 Laboratory Tests 03/21/18 03/22/18 03/23/18 18:33 05:30 06:00 WBC Retic Count 0.79 Calcium Phosphorus Magnesium Total Bilirubin AST ALT Alkaline Phosphatase Total Protein Albumin Urine Color [place] Urine Appearance Slcloudy Urine pH 5.0 Ur Specific [place] 1.017 Urine Protein 1+ H Urine Glucose (UA) Negative Urine Ketones Negative Urine Blood Negative Urine Nitrite Negative Urine Bilirubin Negative Urine Urobilinogen 4.0 e.u/dl H Ur Leukocyte Esterase Negative Urine WBC (Auto) 5 Urine RBC (Auto) 2 Ur Epithelial Cells Rare Urine Bacteria Rare Hyaline Casts 31 Urine Mucus Rare Rheumatoid Arth Biomark 112.2 H DRE Screen Positive H DRE Homogeneous Pattern 1:160 H 03/23/18 03/27/18 17:15 06:24 WBC 1.0 L* Retic Count Calcium 8.3 L Phosphorus 1.5 L Magnesium 1.9 Total Bilirubin 0.7 AST 23 ALT 26 Alkaline Phosphatase 113 Total Protein 5.8 L Albumin 2.3 L Urine Color Urine Appearance Urine pH Ur Specific [place] Urine Protein Urine Glucose (UA) Urine Ketones Urine Blood Urine Nitrite Urine Bilirubin Urine Urobilinogen Ur Leukocyte Esterase Urine WBC (Auto) Urine RBC (Auto) Ur Epithelial Cells Urine Bacteria Hyaline Casts Urine Mucus Rheumatoid Arth Biomark DRE Screen DRE Homogeneous Pattern Problem List - Problems (1) Methotrexate adverse reaction Assessment/Plan: Painful oral and rectal ulcers and significant leukopenia secondary to Methotrexate toxicity, improving with Leucovorin. Plan: Continue with Leukovorin as per hematology. Code(s): T45.1X5A - ADVERSE EFFECT OF ANTINEOPLASTIC AND IMMUNOSUP DRUGS, INIT (2) Rheumatoid arthritis Assessment/Plan: Sero-positive rheumatoid arthritis with mild disease activity Code(s): M06.9 - RHEUMATOID ARTHRITIS, UNSPECIFIED
[2018-03-27] MEDS: LIDOCAINE VISCOUS 2% ORAL/TOP 20 ML UNIT-DOSE CUP MM PRN (20:27)
[2018-03-28] MEDS: WITCH HAZEL 50% (TUCKS) 40 PAD/JAR PAD TP SCH ×3 (00:34→21:23)
[2018-03-28] MEDS: morphine SULFATE 4 MG/ML VIAL IVPUSH PRN (00:35)
[2018-03-28] MEDS: CEFEPIME HCL/D5W 1 GM/50 ML BAG IVPB SCH ×3 (01:42→18:19)
[2018-03-28] MEDS: DEXTROSE 5% IVPB SCH ×4 (02:21→21:19)
[2018-03-28] MEDS: MAG HYDROX/ALH/SMC/DPHA/LIDO 240 ML MOUTHWASH MM SCH ×6 (02:21→21:22)
[2018-03-28] MEDS: WATER IVPB SCH ×4 (02:21→21:19)
[2018-03-28] MEDS: LEUCOVORIN IVPB SCH ×4 (02:21→21:19)
[2018-03-28 08:01] LABS: BASO % 0.5 % (0-2.0); EOS % 3.9 % (0-4.5); HEMATOCRIT 25.8 % (32.4-45.2); HEMOGLOBIN 8.7 GM/dL (10.7-15.3); LYMPH % 30.3 % (8-40); MCH 31.6 pg (25.7-33.7); MCHC 33.9 g/dl (32.0-36.0); MEAN CELL VOLUME 93.2 fl (80-96); MEAN PLT VOLUME 11.9 fl (7.5-11.1); MONO % 56.2 % (3.8-10.2); NEUT % 9.1 % (42.8-82.8); PLATELET COUNT 76 K/MM3 (134-434); RBC 2.76 M/mm3 (3.60-5.2); RDW 18.3 % (11.6-15.6); WHITE BLOOD COUNT 3.4 K/mm3 (4.0-10.0)
[2018-03-28 08:29] LABS: ALBUMIN 2.3 g/dl (3.4-5.0); ANION GAP 8 (8-16); BLOOD UREA NITROGEN 7 mg/dL (7-18); CALCIUM 8.1 mg/dL (8.5-10.1); CHLORIDE 104 mmol/L (98-107); CO2 28 mmol/L (21-32); GLUCOSE,RANDOM 110 mg/dL (74-106); MAGNESIUM 1.8 mg/dL (1.8-2.4); POTASSIUM 3.3 mmol/L (3.5-5.1); SODIUM 140 mmol/L (136-145)
[2018-03-28] MEDS ORDERED: PT OWN MED DRAWER 7, Y5N ONE ×5 (08:44→20:47)
[2018-03-28 08:46] LABS: ALK PHOS 114 U/L (45-117); BILIRUBIN,TOTAL 0.6 mg/dL (0.2-1.0); CREATININE 0.8 mg/dL (0.55-1.02); PHOSPHOROUS 2.2 mg/dL (2.5-4.9); SGOT/AST 25 U/L (15-37); SGPT/ALT 28 U/L (12-78); TOT PROT 5.7 g/dl (6.4-8.2)
--- NOTE | 2018-03-28 08:51 | PN ---
Progress Note (short form) - Note Progress Note: Patient seen and examined Mouth somewhat improved Beginning to tolerate some liquids Last Vital Signs Temp Pulse Resp BP Pulse Ox 98.4 F 86 19 136/66 97 03/28/18 06:00 03/28/18 06:00 03/28/18 06:00 03/28/18 06:00 03/27/18 21:00 HEENT: TONY, EOM Intact Oropharynx: No thrush, mucositis, slowly improving Cor: RSR, No murmurs, No gallops Lungs: rales at bases R>L Abd: Soft, Normal bowel sounds, No organomegaly Ext:No significant edema Skin: No rashes, Integument intact CBC, BMP 03/28/18 06:30 Current Medications Generic Name Dose Route Start Last Admin Trade Name Freq PRN Reason Stop Dose Admin Acetaminophen 650 mg 03/22/18 01:28 03/27/18 13:28 Tylenol - PO 650 mg Q4H PRN Administration PAIN LEVEL 1 - 3 Diphenhydramine HCl 25 mg 03/27/18 10:43 Benadryl - PO TID PRN FLUSH IV Flush 8 ml 03/25/18 17:52 Picc Line Flush IVPUSH PRN PRN Protocol Potassium Chloride 20 meq/ 1,010 mls @ 75 mls/hr 03/25/18 09:00 03/27/18 15: 45 Dextrose IVPB 75 mls/hr Q13H FLAVIO Administration Cefepime HCl 1 gm in 50 mls @ 100 mls/hr 03/26/18 18:45 03/28/18 01:42 Maxipime 1 Gm Premix Ivpb IVPB 100 mls/hr Q8H-IV FLAVIO Administration Protocol Leucovorin Calcium 25 mg/ 51.25 mls @ 205 mls/hr 03/27/18 03:00 03/28/18 02: 21 Dextrose IVPB 03/28/18 21:14 205 mls/hr Q6H-IV FLAVIO Administration Lactobacillus Acidophilus 1 tab 03/22/18 10:00 03/27/18 21:19 Bacid - PO 1 tab BID FLAVIO Administration Lidocaine HCl 20 ml 03/22/18 14:00 03/27/18 20:27 Xylocaine 2% Viscous Oral - MM 20 ml TID PRN Administration ORAL PAIN/MOUTH SORES Lidocaine/Aluminum/Magnesium/Simeth 5 ml 03/22/18 18:00 03/28/18 05:28 Magic Mouthwash *Sjr Formula* - MM 5 ml Q4HPO FLAVIO Administration Morphine Sulfate 5 mg 03/26/18 15:48 Morphine 10 Mg/5 Ml Liquid PO Q6H PRN PAIN LEVEL 6-10 Witch Chikis/Glycerin 1 pad 03/22/18 22:00 03/28/18 00:34 Tucks Pads - TP 1 cap.sprink BID FLAVIO Administration Impression: Pancytopenia Still with absolute neutropenia with increase in moncytes suggesting BM recovery. Platelets improved. Hct - s/p transfusion therapy. Mucositis - slowly improving. To continue to monitor Rheumatology - note consult- seropositive R.A.
[2018-03-28] MEDS: POTASSIUM CHLORIDE 20 MEQ in DEXTROSE 5%-WATER - 1,000 ML IVPB SCH (08:58)
[2018-03-28] MEDS: LACTOBACILLUS ACIDOPHILUS 1 TABLET PO SCH ×2 (08:59→21:19)
[2018-03-28] MEDS ORDERED: POTASSIUM PHOSPHATE 40 MM in SODIUM CHLORIDE 500 ML IVPB ONE (10:00)
[2018-03-28] MEDS: morphine SULFATE 10 MG/5 ML UNIT-DOSE CUP PO PRN ×2 (10:36→21:18)
[2018-03-28 11:14] LABS: ANISOCYTOSIS 1+; MACROCYTOSIS 1+; PLATELET ESTIMATE DECREASED
--- NOTE | 2018-03-28 13:09 | PN ---
Physical Exam: SUBJECTIVE: Patient seen and examined this morning sitting upright in her chair. No new complaints. Feels much better. Denies fevers, chills, chest pain, SOB, nausea, vomiting, diarrhea, constipation. OBJECTIVE: Vital Signs Period Temp Pulse Resp BP Sys/Muniz Pulse Ox Last 24 Hr 98.4 F-99.2 F 73-86 18-20 109-136/58-102 97-97 GENERAL: Awake, alert, Ability to speak continues to improve, in no acute distress. EYES: PERRL, EOMI THROAT: Multiple mouth ulcers visible. Ulcers present over the caudad lip continue to improve, less visible dry blood. Drooling has stopped today. Speech is more clear NECK: No JVD. LUNGS: Breath sounds equal, clear to auscultation bilaterally. No wheezes. HEART: Regular rate and rhythm, normal S1 and S2 without murmur. ABDOMEN: Soft, nontender, not distended, normoactive bowel sounds, no guarding. EXTREMITIES: 2+ pulses, No peripheral edema. SKIN: Ulcers present between gluteal folds continue to improve, decreased tenderness, without active drainage/discharge, with no surrounding erythema or swelling. Laboratory Results - last 24 hr 03/27/18 03/27/1818 06:24 17:27 06:30 WBC 3.4 L RBC 2.76 L Hgb 8.7 L Hct 25.8 L D MCV 93.2 MCH 31.6 MCHC 33.9 RDW 18.3 H Plt Count 76 L D MPV 11.9 H Absolute Neuts (auto) 0.3 L Neutrophils % 9.1 L D Neutrophils % (Manual) 16.3 L D 21.9 L D Band Neutrophils % 1.0 0.0 Lymphocytes % 30.3 D Lymphocytes % (Manual) 26.5 D 24.0 Monocytes % 56.2 H Monocytes % (Manual) 32 H 52 H Eosinophils % 3.9 Eosinophils % (Manual) 8.2 H 1.0 D Basophils % 0.5 Basophils % (Manual) 1.0 D 0.0 Myelocytes % (Man) 0 0 Promyelocytes % (Man) 0 0 Blast Cells % (Manual) 0 0 Nucleated RBC % 3 H 0 Metamyelocytes 1 D 1 Hypochromia 0 0 Platelet Estimate Decreased Decreased Platelet Comment Present Polychromasia 1+ 1+ Poikilocytosis 1+ 1+ Anisocytosis 1+ 1+ Microcytosis 0 1+ Macrocytosis 1+ 1+ Sodium Potassium Chloride Carbon Dioxide Anion Gap BUN Creatinine Creat Clearance w eGFR POC Glucometer 101 Random Glucose Calcium Phosphorus Magnesium Total Bilirubin AST ALT Alkaline Phosphatase Total Protein Albumin 03/28/18 06:30 WBC RBC Hgb Hct MCV MCH MCHC RDW Plt Count MPV Absolute Neuts (auto) Neutrophils % Neutrophils % (Manual) Band Neutrophils % Lymphocytes % Lymphocytes % (Manual) Monocytes % Monocytes % (Manual) Eosinophils % Eosinophils % (Manual) Basophils % Basophils % (Manual) Myelocytes % (Man) Promyelocytes % (Man) Blast Cells % (Manual) Nucleated RBC % Metamyelocytes Hypochromia Platelet Estimate Platelet Comment Polychromasia Poikilocytosis Anisocytosis Microcytosis Macrocytosis Sodium 140 Potassium 3.3 L Chloride 104 Carbon Dioxide 28 Anion Gap 8 BUN 7 Creatinine 0.8 Creat Clearance w eGFR > 60 POC Glucometer Random Glucose 110 H Calcium 8.1 L Phosphorus 2.2 L Magnesium 1.8 Total Bilirubin 0.6 AST 25 ALT 28 Alkaline Phosphatase 114 Total Protein 5.7 L Albumin 2.3 L Microbiology 03/24/18 06:30 Blood - Peripheral Venous Blood Culture - Preliminary NO GROWTH OBTAINED AFTER 96 HOURS, INCUBATION TO CONTINUE FOR 1 DAYS. 03/24/18 06:40 Blood - Peripheral Venous Blood Culture - Preliminary NO GROWTH OBTAINED AFTER 96 HOURS, INCUBATION TO CONTINUE FOR 1 DAYS. 03/22/18 10:30 Face Gram Stain - Final 03/22/18 10:30 Face Wound Culture - Final 03/22/18 10:30 Buttock - Left Gram Stain - Final 03/22/18 10:30 Buttock - Left Wound Culture - Final Escherichia Coli Proteus Mirabilis Staphylococcus Coagulase Neg Diphtheroid/Corynebacterium Aerococcus Viridans 03/21/18 16:50 Blood - Peripheral Venous Blood Culture - Final NO GROWTH AFTER 5 DAYS INCUBATION 03/21/18 16:45 Blood - Peripheral Venous Blood Culture - Final Staphylococcus Simulans [place] Species 03/21/18 18:33 Urine - Urine Clean Catch Urine Culture - Final NO GROWTH OBTAINED Active Medications Acetaminophen (Tylenol -) 650 mg PO Q4H PRN PRN Reason: PAIN LEVEL 1 - 3 Last Admin: 03/27/18 13:28 Dose: 650 mg Diphenhydramine HCl (Benadryl -) 25 mg PO TID PRN PRN Reason: FLUSH IV Flush (Picc Line Flush) 8 ml IVPUSH PRN PRN PRN Reason: Protocol Potassium Chloride 20 meq/ (Dextrose) 1,010 mls @ 75 mls/hr IVPB Q13H [facility] Last Admin: 03/28/18 08:58 Dose: 75 mls/hr Cefepime HCl (Maxipime 1 Gm Premix Ivpb) 1 gm in 50 mls @ 100 mls/hr IVPB Q8H- IV FLAVIO; Protocol Last Admin: 03/28/18 09:02 Dose: 100 mls/hr Leucovorin Calcium 25 mg/ (Dextrose) 51.25 mls @ 205 mls/hr IVPB Q6H-IV FLAVIO Stop: 03/28/18 21:14 Last Admin: 03/28/18 11:23 Dose: 205 mls/hr Potassium Phosphate 40 mm/ (Sodium Chloride) 513.3333 mls @ 85.55 mls/hr IVPB ONCE ONE Stop: 03/28/18 16:00 Last Admin: 03/28/18 11:23 Dose: 85.55 mls/hr Lactobacillus Acidophilus (Bacid -) 1 tab PO BID [facility] Last Admin: 03/28/18 08:59 Dose: 1 tab Lidocaine HCl (Xylocaine 2% Viscous Oral -) 20 ml MM TID PRN PRN Reason: ORAL PAIN/MOUTH SORES Last Admin: 03/27/18 20:27 Dose: 20 ml Lidocaine/Aluminum/Magnesium/Simeth (Magic Mouthwash *Sjr Formula* -) 5 ml MM Q4HPO [facility] Last Admin: 03/28/18 13:02 Dose: 5 ml Morphine Sulfate (Morphine 10 Mg/5 Ml Liquid) 5 mg PO Q6H PRN PRN Reason: PAIN LEVEL 6-10 Last Admin: 03/28/18 10:36 Dose: 5 mg Witch Chikis/Glycerin (Tucks Pads -) 1 pad TP BID [facility] Last Admin: 03/28/18 09:03 Dose: 1 cap.sprink IMAGING: - CXR: elevated right hemidiaphragm, large heart, unfolded aorta, left-sided pacemaker and no sign of an acute process. The bones and soft tissues are intact. - CT Chest, Abdomen and Pelvis: No evidence of pneumonia or acute pathology within the chest. Cholelithiasis. No evidence of intra-abdominal abscess or acute pathology within the abdomen or pelvis. ASSESSMENT/PLAN: 62 y/o F presents with painful ulcers in her mouth and rectum was found to have neutropenic fever and admitted to Obs for sepsis. 1. Rash - Improved today - Patient developed rash on torso when given last Clindamycin dose. She had also just put lotion on herself. - Was given Benadryl 25mg x1 at that time, Rash improved, decreased erythema and itchiness - ID (Dr. Lewis) Consulted, Appreciate rec's, hold clinda, no body lotion - Continue Diphenhydramine HCl 25 mg PO TID PRN 2. Sepsis - Afebrile, HR 73-86, WBC 3.4 - CXR and UA noted above - Blood and urine cx noted above - Lactic acid 2.2 --> 1.8 - Continue Cefepime - Clindamycin D/C'ed as patient developed rash overnight when it was given - D5-1/2ns+30 Meq Kcl in 1,000 mls @ 100 mls/hr IV - Swab ulcers in Oropharynx and Gluteal folds for cultures, results noted above - ID (Dr. Lewis) consulted, appreciate rec's, continue cefepime - Rheumatolgy (Dr. Canas) consulted, appreciate rec's 3. Methotrexate Toxicity - Acute Stomatitis, Perianal ulcers, Leukopenia, Neutropenia - Possibly due to not taking Folic acid while taking Methotrexate, Patient admits she missed some folic acid doses - Hematology (Dr. Rivero) consulted, appreciate rec's, Showing signs of BM recovery with monocytosis, If HIT antibody negative would resume Lovenox when platelets > 50K. Would transfuse packed cells. Holding off on BM. - GI (Dr. Briseno) Consulted, appreciate rec's, will need CT A/P with contrast when able to take po - Continue Magic Mouthwash 5 ml MM Q4HPO - Continue Xylocaine 2% Viscous Oral 20 ml MM TID PRN - Continue Leucovorin 25 mg PO Q6H (Started on 03/23) - Speech and Swallow (Vangie Shaw) consulted, appreciate rec's, Dysphagia Pureed Diet with Thin Liquids 4. Thrombocytopenia - Plt 246 on admission, 76 today - Hematology (Dr. Rivero) consulted, appreciate rec's, Would transfuse packed cells - 1 Unit pRBC's transfused (03/27) - Hold Heparin for now, Use SCDs in bed - Neupogen pending bone marrow biopsy - HIT Panel pending 5. Hypokalemia - Resolved - Ordered 40 mEq KPhos x 2 doses - Also receiving D5-1/2ns+30 Meq Kcl in 1,000 mls @ 100 mls/hr IV 6. HEATHER - Resolved - D5-1/2ns+30 Meq Kcl @ 100 mls/hr IV 7. Anemia - Unclear Etiology - Serial Stool Guaiacs, Reticulocyte count, Iron studies 8. FEN - D5-1/2ns+30 Meq Kcl @ 100 mls/hr IV - Phos and K+ repleted, Continue to monitor - Dysphagia Pureed Diet with Thin Liquids 9. PPX - DVT: SCDs Visit type - Emergency Visit Emergency Visit: Yes ED Registration Date: 03/22/18 Care time: The patient presented to the Emergency Department on the above date and was hospitalized for further evaluation of their emergent condition. - New Patient This patient is new to me today: No - Critical Care Critical Care patient: No
[2018-03-28] MEDS: diphenhydrAMINE HCL 25 MG CAPSULE (FP) PO PRN (13:10)
--- NOTE | 2018-03-28 13:46 | PN ---
Teaching Attending Note Name of Resident: Haylee Portillo ATTENDING PHYSICIAN STATEMENT I saw and evaluated the patient. I reviewed the resident's note and discussed the case with the resident. I agree with the resident's findings and plan as documented with exceptions below. SUBJECTIVE: Patient seen and examined. Mouth pain improved, tolerating diet well, wondering if can regular food. Rash improved, no further itching. NO new bleed or other concerns. OBJECTIVE: Vital Signs Period Temp Pulse Resp BP Sys/Muniz Pulse Ox Last 24 Hr 98.4 F-99.2 F 73-86 18-20 109-136/58-102 97-97 Intake & Output 03/25/18 03/26/18 03/27/18 03/28/18 23:59 23:59 23:59 23:59 Intake Total 500 206 8601 700 Balance 094 980 1702 700 General: lying in bed in no acute distress HEENT: markedly improved ulceration, resolved bleed. Skin: rash improving, non pruritic now Active Medications Acetaminophen (Tylenol -) 650 mg PO Q4H PRN PRN Reason: PAIN LEVEL 1 - 3 Last Admin: 03/27/18 13:28 Dose: 650 mg Diphenhydramine HCl (Benadryl -) 25 mg PO TID PRN PRN Reason: FLUSH Last Admin: 03/28/18 13:10 Dose: 25 mg IV Flush (Picc Line Flush) 8 ml IVPUSH PRN PRN PRN Reason: Protocol Potassium Chloride 20 meq/ (Dextrose) 1,010 mls @ 75 mls/hr IVPB Q13H FLAVIO Last Admin: 03/28/18 08:58 Dose: 75 mls/hr Cefepime HCl (Maxipime 1 Gm Premix Ivpb) 1 gm in 50 mls @ 100 mls/hr IVPB Q8H- IV FLAVIO; Protocol Last Admin: 03/28/18 09:02 Dose: 100 mls/hr Leucovorin Calcium 25 mg/ (Dextrose) 51.25 mls @ 205 mls/hr IVPB Q6H-IV FLAVIO Stop: 03/28/18 21:14 Last Admin: 03/28/18 11:23 Dose: 205 mls/hr Potassium Phosphate 40 mm/ (Sodium Chloride) 513.3333 mls @ 85.55 mls/hr IVPB ONCE ONE Stop: 03/28/18 16:00 Last Admin: 03/28/18 11:23 Dose: 85.55 mls/hr Lactobacillus Acidophilus (Bacid -) 1 tab PO BID [facility] Last Admin: 03/28/18 08:59 Dose: 1 tab Lidocaine HCl (Xylocaine 2% Viscous Oral -) 20 ml MM TID PRN PRN Reason: ORAL PAIN/MOUTH SORES Last Admin: 03/27/18 20:27 Dose: 20 ml Lidocaine/Aluminum/Magnesium/Simeth (Magic Mouthwash *Sjr Formula* -) 5 ml MM Q4HPO [facility] Last Admin: 03/28/18 13:02 Dose: 5 ml Morphine Sulfate (Morphine 10 Mg/5 Ml Liquid) 5 mg PO Q6H PRN PRN Reason: PAIN LEVEL 6-10 Last Admin: 03/28/18 10:36 Dose: 5 mg Witch Chikis/Glycerin (Tucks Pads -) 1 pad TP BID [facility] Last Admin: 03/28/18 09:03 Dose: 1 cap.kuldip ASSESSMENT AND PLAN: 62 yof with PMHx of RA on Methotrexate (for years, stopped 2 weeks ago), admitted with painful ulcers in her mouth (since August) and rectum, progressive with decreased oral intake, found with neutropenic fevers, bacteremia -Acute stomatitis/perianal ulcers/Leucopenia with severe absolute neutropenia, suspected Methotrexate toxicity -Neutropenic fevers, with staph stimulans bacteremia -Anemia, ?bone marrow suppression/myeloproliferative disorder, low suspicion for acute bleed -Thrombocytopenia, ?Myeloproliferative disorder, r/o HIT -Folic acid deficiency -RA on Methotrexate -Hypokalemia -Hypophosphatemia -HEATHER, ?from poor oral intake -Hypernatremia, suspect from poor oral intake -Hyperchloremia, suspect iatrogenic -Failure to thrive, from above. -Maculopapular rash, ?Drug allergy ?clindamycin vs contact from skin lotion. Plan: Bone marrow recovering, counts improved. Dr. Rivero's input appreciated. s/p 1 unit PRBC, monitor h/h. Platelets improved, making HIT less likely. Follow up HIT panel. Hold heparin for now, SCDs when in bed Leucovorum with sq folate. Hold off on bone marrow biopsy/neupogen as improving. Defer to Hematology. Afebrile, final blood cultures noted. ID input appreciated. Rash improved, off clindacmyin. Cefepime per ID. Benadryl prn for rash and monitor for now. Rheumatology input appreciated.. replete k and phos. Cr improved. DC IVF. Monitor renal function. Speech/swallow eval. advance to soft diet as tolerated. DVTPPx with SCDs as above. Dispo pending resolution of medical issues. in 2-3 days if continues to improve. Plan discussed with patient in detail, all questions answered.
[2018-03-28] MEDS: LIDOCAINE VISCOUS 2% ORAL/TOP 20 ML UNIT-DOSE CUP MM PRN ×2 (14:08→21:19)
--- NOTE | 2018-03-28 14:26 | CONSULT ---
Admitting History and Physical - Admission History of Present Illness: Per EMR: 62 y/o F presents with painful ulcers in her mouth and rectum was found to have neutropenic fever and admitted for sepsis. Painful oral and rectal ulcers and significant leukopenia secondary to Methotrexate toxicity, improving with Leucovorin. Pancytopenia Still with absolute neutropenia with increase in moncytes suggesting BM recovery. Platelets improved. Hct - s/p transfusion therapy. Mucositis - slowly improving Nutrition consult:Swallowing appears to be improved since yesterday. Remains on Full liquid diet, not ready for diet advancement. MD would like no hot foods on tray. Pt states she will take soup cold w/ice cubes. Magic cup was added TID yesterday instead of Ensure ENlive as pt c/o intolerance. Today, pt would like to re-institute into diet- added carmencita Ensure Enlive and butterpecan Ensure Plus. Will continue Magic cup BID. Food preferences honored. RD will follow. Suggest neutropenic diet added to full liquids. Selected Entries 03/27/18 03/27/18 03/27/18 05:56 08:55 09:00 Breakfast 25% Supper Temperature 98.3 F 98.9 F 03/27/18 03/27/18 03/27/18 13:00 18:35 22:00 Breakfast Supper 25% Temperature 100.6 F H 98.7 F 98.6 F 03/28/18 03/28/18 03/28/18 02:00 06:00 10:00 Breakfast Supper Temperature 99.2 F 98.4 F 98.9 F Laboratory Tests 03/28/18 06:30 WBC 3.4 L History Source: Patient, Medical Record Limitations to Obtaining History: No Limitations - Past Medical History Rheumatology: Yes: Other (See HPI) Endocrine: Yes: Hypothyroidism - Smoking History Smoking history: Current every day smoker Have you smoked in the past 12 months: Yes History - Admission Reason For Visit: SEPSIS, FEBRILE NEUTROPENIA - Diagnostics X-ray: Report Reviewed - General Mental Status: Alert and Oriented, Awake and Alert, Able to Follow Commands Attention: Intact Ability to Follow Directions: Excellent Head/Neck Control: WFL - Hearing Hearing: Normal Hearing Aide: No Speech Evaluation - Communication Primary Language: TRINIDADIAN Communication: Yes: Within Normal Limits (Imprecise sec oral sores with reduced bilabial closure and excursion.) - Speech Production Able to Make Needs Known: Yes: Mildly Impaired Intelligibility: Yes: Mildly Impaired - Speech Characteristics Voice Loudness: Normal Voice Pitch: Yes: Normal Voice Phonatory-based Quality: Yes: Normal Nasal Resonance: Normal Articulation: Yes: Imprecise - Language/Auditory Comprehension Follows: Yes: 2 Stage Simple Commands - Language/Verbal Expression Able to Communicate Wants and Needs: Yes: WNL - Swallow Evaluation/Bedside Assessment Current Nutritional Intake: Dysphagia Pureed, Full Liquids, Thin Liquids Oral Secretions: Yes: Drooling Dentition: Yes: Adequate Facial Symmetry at Rest: Symmetrical (open mouth posture) Facial Symmetry on Retraction: Symmetrical (very resticted) Jaw Position: Open at Rest Pucker Lips: Bilabial Closure (poor) Smile: Reduced ROM Laryngeal Elevation: WFL Laryngeal Movement: Able to Palpate, Labored,delay initiation (with open mouth posture) Rate of Intake: Slow/Holding Bolus Size: Small Labial Seal: Impaired Bilaterally Oral Prep Time: Increased Timing of Swallow: Delayed Coughing/Throat Clear: No Change in Voice: No Recommendations - Speech Evaluation, Impression/Plan Impression: Imprecise articulation and oral control/dai-pharyngeal transfer secondary to painful oral sores with reduced bilabial closure and excursion.Pt benefits from Magic Mouthwash before and after meals. Drooling sec to impaired bilabial closure, reported to be improving. - Dysphagia Impressions/Plan Dysphagia Treatment Plan: Other (Pt educated on taking sip, tilting head up slightly to use gravity to assist in transfer, use cup to support lower lip to achieve bilabial closure which will reduce drooling, and facilitate posterior bolus transfer and stronger swallow reflex. Remove puree from tsp with food scraped of tsp with upper teeth.If difficult, liquify puree and drink it.) - Recommendations Diet Consistency: Dysphagia Pureed Liquids: Thin Liquids
--- NOTE | 2018-03-28 14:57 | PN ---
Progress Note, [employer] - Note Progress Note: Magic mouth wash before and after meals Pt educated on: taking sip, tilting head up slightly to use gravity to assist in transfer, use cup to support lower lip to achieve bilabial closure which will reduce drooling, and facilitate posterior bolus transfer and stronger swallow reflex. Remove puree from tsp with food scraped off tsp with upper teeth. If difficult, liquify puree and drink it.
--- NOTE | 2018-03-28 15:22 | PN ---
Progress Note, Physician History of Present Illness: stable no new issues mouth becoming better plan to start a puree diet - Current Medication List Current Medications: Active Medications Acetaminophen (Tylenol -) 650 mg PO Q4H PRN PRN Reason: PAIN LEVEL 1 - 3 Last Admin: 03/27/18 13:28 Dose: 650 mg Diphenhydramine HCl (Benadryl -) 25 mg PO TID PRN PRN Reason: FLUSH Last Admin: 03/28/18 13:10 Dose: 25 mg IV Flush (Picc Line Flush) 8 ml IVPUSH PRN PRN PRN Reason: Protocol Cefepime HCl (Maxipime 1 Gm Premix Ivpb) 1 gm in 50 mls @ 100 mls/hr IVPB Q8H- IV [facility]; Protocol Last Admin: 03/28/18 09:02 Dose: 100 mls/hr Leucovorin Calcium 25 mg/ (Dextrose) 51.25 mls @ 205 mls/hr IVPB Q6H-IV [facility]IO Stop: 03/28/18 21:14 Last Admin: 03/28/18 11:23 Dose: 205 mls/hr Potassium Phosphate 40 mm/ (Sodium Chloride) 513.3333 mls @ 85.55 mls/hr IVPB ONCE ONE Stop: 03/28/18 16:00 Last Admin: 03/28/18 11:23 Dose: 85.55 mls/hr Lactobacillus Acidophilus (Bacid -) 1 tab PO BID [facility] Last Admin: 03/28/18 08:59 Dose: 1 tab Lidocaine HCl (Xylocaine 2% Viscous Oral -) 20 ml MM TID PRN PRN Reason: ORAL PAIN/MOUTH SORES Last Admin: 03/28/18 14:08 Dose: 20 ml Lidocaine/Aluminum/Magnesium/Simeth (Magic Mouthwash *Sjr Formula* -) 5 ml MM Q4HPO [facility] Last Admin: 03/28/18 13:02 Dose: 5 ml Morphine Sulfate (Morphine 10 Mg/5 Ml Liquid) 5 mg PO Q6H PRN PRN Reason: PAIN LEVEL 6-10 Last Admin: 03/28/18 10:36 Dose: 5 mg Witch Chikis/Glycerin (Tucks Pads -) 1 pad TP BID [facility] Last Admin: 03/28/18 09:03 Dose: 1 cap.sprink - Objective Vital Signs: Vital Signs Temperature 98.9 F 03/28/18 10:00 Pulse Rate 80 03/28/18 10:00 Respiratory Rate 18 03/28/18 10:00 Blood Pressure 122/73 03/28/18 10:00 O2 Sat by Pulse Oximetry (%) 97 03/28/18 09:00 Constitutional: Yes: No Distress, Calm HENT: Yes: Other (mouth ulcers improving) Cardiovascular: Yes: Regular Rate and Rhythm Respiratory: Yes: Regular, CTA Bilaterally Gastrointestinal: Yes: Normal Bowel Sounds, Soft Musculoskeletal: Yes: WNL Extremities: Yes: WNL Labs: CBC, BMP 03/28/18 06:30 03/28/18 06:30 INR, PTT INR 1.19 (0.83-1.09) H 03/21/18 16:50 Assessment/Plan Problem List - Problems (1) Stomatitis Code(s): K12.1 - OTHER FORMS OF STOMATITIS (2) Stomatitis, ulcerative Code(s): K12.1 - OTHER FORMS OF STOMATITIS (3) Neutropenic fever Code(s): D70.9 - NEUTROPENIA, UNSPECIFIED; R50.81 - FEVER PRESENTING WITH CONDITIONS CLASSIFIED ELSEWHERE 4 gm positive bacteremia Assessment/Plan A 62F with stomatitis, perianal ulcers and leukopenia coming in with fever and inability to eat also having blood cx positive which i think might be a contaminant continue iv abx monitor wbc monitor platelets will await for final plan then will decide next step wbc has increased platelets and hand h has increased once patient starts taking orally might deesclate abx
[2018-03-29] MEDS: CEFEPIME HCL/D5W 1 GM/50 ML BAG IVPB SCH ×3 (01:06→18:24)
[2018-03-29] MEDS ORDERED: PT OWN MED DRAWER 7, Y5N ONE ×6 (01:09→18:05)
[2018-03-29] MEDS: MAG HYDROX/ALH/SMC/DPHA/LIDO 240 ML MOUTHWASH MM SCH ×6 (02:36→21:10)
[2018-03-29] MEDS: diphenhydrAMINE HCL 25 MG CAPSULE (FP) PO PRN ×2 (02:36→15:44)
[2018-03-29] MEDS: LIDOCAINE VISCOUS 2% ORAL/TOP 20 ML UNIT-DOSE CUP MM PRN ×3 (06:16→18:30)
[2018-03-29 07:24] LABS: BASO % 0.1 % (0-2.0); EOS % 4.5 % (0-4.5); HEMATOCRIT 23.6 % (32.4-45.2); LYMPH % 33.5 % (8-40); MCH 31.5 pg (25.7-33.7); MCHC 33.8 g/dl (32.0-36.0); MEAN CELL VOLUME 93.1 fl (80-96); MEAN PLT VOLUME 11.6 fl (7.5-11.1); MONO % 49.5 % (3.8-10.2); NEUT % 12.4 % (42.8-82.8); PLATELET COUNT 91 K/MM3 (134-434); RBC 2.53 M/mm3 (3.60-5.2); RDW 18.4 % (11.6-15.6); WHITE BLOOD COUNT 5.1 K/mm3 (4.0-10.0)
[2018-03-29 07:52] LABS: ALBUMIN 2.1 g/dl (3.4-5.0); ANION GAP 8 (8-16); BLOOD UREA NITROGEN 3 mg/dL (7-18); CALCIUM 7.8 mg/dL (8.5-10.1); CHLORIDE 108 mmol/L (98-107); CO2 27 mmol/L (21-32); GLUCOSE,RANDOM 77 mg/dL (74-106); MAGNESIUM 1.8 mg/dL (1.8-2.4); PHOSPHOROUS 2.9 mg/dL (2.5-4.9); POTASSIUM 3.4 mmol/L (3.5-5.1); SGOT/AST 25 U/L (15-37); SGPT/ALT 25 U/L (12-78); SODIUM 143 mmol/L (136-145)
[2018-03-29 07:54] LABS: ALK PHOS 105 U/L (45-117); BILIRUBIN,TOTAL 0.4 mg/dL (0.2-1.0); CREATININE 0.7 mg/dL (0.55-1.02); TOT PROT 5.4 g/dl (6.4-8.2)
[2018-03-29 08:48] LABS: PLATELET ESTIMATE DECREASED
[2018-03-29] MEDS: WITCH HAZEL 50% (TUCKS) 40 PAD/JAR PAD TP SCH ×2 (09:01→21:10)
[2018-03-29] MEDS: LACTOBACILLUS ACIDOPHILUS 1 TABLET PO SCH ×2 (09:01→21:10)
--- NOTE | 2018-03-29 09:19 | PN ---
<Haylee Portillo - Last Filed: 03/29/18 12:41> Physical Exam: SUBJECTIVE: Patient seen and examined this morning at bedside while eating her breakfast. No new complaints. Speech continues to improve. Request morphine x1 overnight as per nursing staff. Denies fevers, chills, chest pain, SOB, nausea, vomiting, diarrhea, constipation. OBJECTIVE: Vital Signs Period Temp Pulse Resp BP Sys/Muniz Pulse Ox Last 24 Hr 97.9 F-98.9 F 80-97 18-18 110-122/65-73 97 GENERAL: Awake, alert, Ability to speak continues to improve, in no acute distress. EYES: PERRL, EOMI THROAT: Multiple mouth ulcers visible that have improved and decreased in size. Ulcers present over the caudad lip continue to improve, less visible dry blood. No longer drooling. Speech is more clear and continues to improve NECK: No JVD. LUNGS: Breath sounds equal, clear to auscultation bilaterally. No wheezes. HEART: Regular rate and rhythm, normal S1 and S2 without murmur. ABDOMEN: Soft, nontender, not distended, normoactive bowel sounds, no guarding. EXTREMITIES: 2+ pulses, No peripheral edema. SKIN: Ulcers present between gluteal folds continue to improve, decreased tenderness, without active drainage/discharge, with no surrounding erythema or swelling. Laboratory Results - last 24 hr 03/28/18 03/29/18 03/29/18 06:30 06:00 06:00 WBC 5.1 RBC 2.53 L Hgb 8.0 L Hct 23.6 L MCV 93.1 MCH 31.5 MCHC 33.8 RDW 18.4 H Plt Count 91 L MPV 11.6 H Absolute Neuts (auto) 0.6 L Neutrophils % 12.4 L D Neutrophils % (Manual) 21.9 L D 11.0 L D Band Neutrophils % 0.0 7.0 Lymphocytes % 33.5 Lymphocytes % (Manual) 24.0 50.0 H D Monocytes % 49.5 H Monocytes % (Manual) 52 H 28 H Eosinophils % 4.5 Eosinophils % (Manual) 1.0 D 3.0 D Basophils % 0.1 Basophils % (Manual) 0.0 0.0 Myelocytes % (Man) 0 Promyelocytes % (Man) 0 Blast Cells % (Manual) 0 Nucleated RBC % 0 1 H Metamyelocytes 1 1 Hypochromia 0 Platelet Estimate Decreased Decreased Platelet Comment No clumping noted Polychromasia 1+ Poikilocytosis 1+ Anisocytosis 1+ Microcytosis 1+ Macrocytosis 1+ Sodium 143 Potassium 3.4 L Chloride 108 H Carbon Dioxide 27 Anion Gap 8 BUN 3 L Creatinine 0.7 Creat Clearance w eGFR > 60 Random Glucose 77 Calcium 7.8 L Phosphorus 2.9 Magnesium 1.8 Total Bilirubin 0.4 AST 25 ALT 25 Alkaline Phosphatase 105 Total Protein 5.4 L Albumin 2.1 L Microbiology 03/24/18 06:30 Blood - Peripheral Venous Blood Culture - Final NO GROWTH AFTER 5 DAYS INCUBATION 03/24/18 06:40 Blood - Peripheral Venous Blood Culture - Final NO GROWTH AFTER 5 DAYS INCUBATION 03/22/18 10:30 Face Gram Stain - Final 03/22/18 10:30 Face Wound Culture - Final 03/22/18 10:30 Buttock - Left Gram Stain - Final 03/22/18 10:30 Buttock - Left Wound Culture - Final Escherichia Coli Proteus Mirabilis Staphylococcus Coagulase Neg Diphtheroid/Corynebacterium Aerococcus Viridans 03/21/18 16:50 Blood - Peripheral Venous Blood Culture - Final NO GROWTH AFTER 5 DAYS INCUBATION 03/21/18 16:45 Blood - Peripheral Venous Blood Culture - Final Staphylococcus Simulans [place] Species 03/21/18 18:33 Urine - Urine Clean Catch Urine Culture - Final NO GROWTH OBTAINED Active Medications Acetaminophen (Tylenol -) 650 mg PO Q4H PRN PRN Reason: PAIN LEVEL 1 - 3 Last Admin: 03/27/18 13:28 Dose: 650 mg Diphenhydramine HCl (Benadryl -) 25 mg PO TID PRN PRN Reason: FLUSH Last Admin: 03/29/18 02:36 Dose: 25 mg IV Flush (Picc Line Flush) 8 ml IVPUSH PRN PRN PRN Reason: Protocol Cefepime HCl (Maxipime 1 Gm Premix Ivpb) 1 gm in 50 mls @ 100 mls/hr IVPB Q8H- IV FLAVIO; Protocol Last Admin: 03/29/18 09:00 Dose: 100 mls/hr Lactobacillus Acidophilus (Bacid -) 1 tab PO BID FLAVIO Last Admin: 03/29/18 09:01 Dose: 1 tab Lidocaine HCl (Xylocaine 2% Viscous Oral -) 20 ml MM TID PRN PRN Reason: ORAL PAIN/MOUTH SORES Last Admin: 03/29/18 06:16 Dose: 20 ml Lidocaine/Aluminum/Magnesium/Simeth (Magic Mouthwash *Sjr Formula* -) 5 ml MM Q4HPO [facility] Last Admin: 03/29/18 09:00 Dose: 5 ml Morphine Sulfate (Morphine 10 Mg/5 Ml Liquid) 5 mg PO Q6H PRN PRN Reason: PAIN LEVEL 6-10 Last Admin: 03/28/18 21:18 Dose: 5 mg Witch Chikis/Glycerin (Tucks Pads -) 1 pad TP BID [facility] Last Admin: 03/29/18 09:01 Dose: 1 cap.sprink IMAGING: - CXR: elevated right hemidiaphragm, large heart, unfolded aorta, left-sided pacemaker and no sign of an acute process. The bones and soft tissues are intact. - CT Chest, Abdomen and Pelvis: No evidence of pneumonia or acute pathology within the chest. Cholelithiasis. No evidence of intra-abdominal abscess or acute pathology within the abdomen or pelvis. ASSESSMENT/PLAN: 62 y/o F presents with painful ulcers in her mouth and rectum was found to have neutropenic fever and admitted to Obs for sepsis. 1. Rash - Improved today - Patient developed rash on torso when given last Clindamycin dose. She had also just put lotion on herself. - Was given Benadryl 25mg x1 at that time, Rash improved, decreased erythema and itchiness - ID (Dr. Lewis) Consulted, Appreciate rec's, hold clinda, no body lotion - Continue Diphenhydramine HCl 25 mg PO TID PRN 2. Sepsis - Afebrile, HR 80-97, WBC 5.1 - CXR and UA noted above - Blood and urine cx noted above - Lactic acid 2.2 --> 1.8 - Continue Cefepime until ANC > 1k - Clindamycin D/C'ed as patient developed rash overnight when it was given - D5-1/2ns+30 Meq Kcl in 1,000 mls @ 100 mls/hr IV - Swab ulcers in Oropharynx and Gluteal folds for cultures, results noted above - ID (Dr. Lewis) consulted, appreciate rec's, continue cefepime - Rheumatolgy (Dr. Canas) consulted, appreciate rec's 3. Methotrexate Toxicity - Acute Stomatitis, Perianal ulcers - Thrombocytopenia, Leukopenia, Neutropenia are improving - Possibly due to not taking Folic acid while taking Methotrexate, Patient admits she missed some folic acid doses - Hematology (Dr. Rivero) consulted, appreciate rec's, Showing signs of BM recovery with monocytosis, If HIT antibody negative would resume Lovenox when platelets > 50K. Would transfuse packed cells. Holding off on BM. - GI (Dr. Briseno) Consulted, appreciate rec's, will need CT A/P with contrast when able to take po - Continue Magic Mouthwash 5 ml MM Q4HPO - Continue Xylocaine 2% Viscous Oral 20 ml MM TID PRN - Continue Leucovorin 25 mg PO Q6H (Started on 03/23) - Speech and Swallow (Vangie Shaw) consulted, appreciate rec's, Dysphagia Pureed Diet with Thin Liquids 4. Thrombocytopenia - Plt 246 on admission, 91 today - Hematology (Dr. Rivero) consulted, appreciate rec's - 1 Unit pRBC's transfused (03/27) - Hold Heparin for now, Use SCDs in bed - Neupogen pending bone marrow biopsy - HIT Panel pending 5. Hypokalemia - Resolved - Ordered 40 mEq KPhos x 2 doses - Also receiving D5-1/2ns+30 Meq Kcl in 1,000 mls @ 100 mls/hr IV 6. HEATHER - Resolved - D5-1/2ns+30 Meq Kcl @ 100 mls/hr IV 7. Anemia - Unclear Etiology - Serial Stool Guaiacs, Reticulocyte count, Iron studies 8. FEN - D5-1/2ns+30 Meq Kcl @ 100 mls/hr IV - Phos and K+ repleted, Continue to monitor - Dysphagia Pureed Diet with Thin Liquids 9. PPX - DVT: SCDs Visit type - Emergency Visit Emergency Visit: Yes ED Registration Date: 03/22/18 Care time: The patient presented to the Emergency Department on the above date and was hospitalized for further evaluation of their emergent condition. - New Patient This patient is new to me today: No - Critical Care Critical Care patient: No <Pepito Lord - Last Filed: 03/29/18 13:08> Physical Exam: Correction: IVF d/azael, replete K.
--- NOTE | 2018-03-29 09:27 | PN ---
Progress Note (short form) - Note Progress Note: Patient seen in follow up. Reports mouth ulcer pain improving, but still present. Otherwise feeling well. No significant events overnight. Inpatient Meds reviewed. Current Medications Generic Name Dose Route Start Last Admin Trade Name Freq PRN Reason Stop Dose Admin Acetaminophen 650 mg 03/22/18 01:28 03/27/18 13:28 Tylenol - PO 650 mg Q4H PRN Administration PAIN LEVEL 1 - 3 Diphenhydramine HCl 25 mg 03/27/18 10:43 03/29/18 02:36 Benadryl - PO 25 mg TID PRN Administration FLUSH IV Flush 8 ml 03/25/18 17:52 Picc Line Flush IVPUSH PRN PRN Protocol Cefepime HCl 1 gm in 50 mls @ 100 mls/hr 03/26/18 18:45 03/29/18 09:00 Maxipime 1 Gm Premix Ivpb IVPB 100 mls/hr Q8H-IV FLAVIO Administration Protocol Lactobacillus Acidophilus 1 tab 03/22/18 10:00 03/29/18 09:01 Bacid - PO 1 tab BID FLAVIO Administration Lidocaine HCl 20 ml 03/22/18 14:00 03/29/18 06:16 Xylocaine 2% Viscous Oral - MM 20 ml TID PRN Administration ORAL PAIN/MOUTH SORES Lidocaine/Aluminum/Magnesium/Simeth 5 ml 03/22/18 18:00 03/29/18 09:00 Magic Mouthwash *Sjr Formula* - MM 5 ml Q4HPO FLAVIO Administration Morphine Sulfate 5 mg 03/28/18 10:13 03/28/18 21:18 Morphine 10 Mg/5 Ml Liquid PO 5 mg Q6H PRN Administration PAIN LEVEL 6-10 Witch Chikis/Glycerin 1 pad 03/22/18 22:00 03/29/18 09:01 Tucks Pads - TP 1 cap.sprink BID FLAVIO Administration On Examination: Last Vital Signs Temp Pulse Resp BP Pulse Ox 97.9 F 80 18 118/68 97 03/29/18 06:00 03/29/18 06:00 03/29/18 06:00 03/29/18 06:00 03/28/18 21:00 Labs: CBC, BMP 03/29/18 06:00 03/29/18 06:00 General. Looks well, sitting in chair. Well hydrated, no pallor or cyanosis. No edema. No adenopathy. Respiratory. Breathing comfortably, clear. Cardiology. S1, S2, no gallop or murmur. Abdomen. Soft, no organomegaly. Neurology. Alert and oriented, non-focal. Assessment. Neutropenia, and progressive anemia and thrombocytopenia, despite limited and remote MTX exposure, worrisome and raised concern about an independent process. Today however neutrophil recovery noted, and improvement in platelet count, suggestive of recovering marrow. Continue observation. When ANC >1k and if afebrile >48 hours then stop Abics. Will continue to monitor closely.
--- NOTE | 2018-03-29 09:51 | PN ---
Teaching Attending Note Name of Resident: Haylee Portillo ATTENDING PHYSICIAN STATEMENT I saw and evaluated the patient. I reviewed the resident's note and discussed the case with the resident. I agree with the resident's findings and plan as documented with exceptions below. SUBJECTIVE: Patient seen and examined. mouth pain better, attempting to eat pureed diet with some pain. reports back ulcers have improved. Rash occasionally itching but improved with benadryl. OBJECTIVE: Vital Signs Period Temp Pulse Resp BP Sys/Muniz Pulse Ox Last 24 Hr 97.9 F-98.9 F 80-97 - 110-122/65-73 97 Intake & Output 03/26/18 03/27/18 03/28/18 03/29/18 23:59 23:59 23:59 23:59 Intake Total 865 2930 2150 350 Balance 865 2930 2150 350 Weight 190 lb 8 oz General: sitting in chair in no acute distress HEENT: improved oral ulceration, no active bleed or discharge, improved plaques on tongue and hard palate Skin: overall unchanged maculopapular confluent rash from yesterday, no worsening noted Abdomen:soft, obese, NT Active Medications Acetaminophen (Tylenol -) 650 mg PO Q4H PRN PRN Reason: PAIN LEVEL 1 - 3 Last Admin: 03/27/18 13:28 Dose: 650 mg Diphenhydramine HCl (Benadryl -) 25 mg PO TID PRN PRN Reason: FLUSH Last Admin: 03/29/18 02:36 Dose: 25 mg IV Flush (Picc Line Flush) 8 ml IVPUSH PRN PRN PRN Reason: Protocol Cefepime HCl (Maxipime 1 Gm Premix Ivpb) 1 gm in 50 mls @ 100 mls/hr IVPB Q8H- IV FLAVIO; Protocol Last Admin: 03/29/18 09:00 Dose: 100 mls/hr Lactobacillus Acidophilus (Bacid -) 1 tab PO BID FLAVIO Last Admin: 03/29/18 09:01 Dose: 1 tab Lidocaine HCl (Xylocaine 2% Viscous Oral -) 20 ml MM TID PRN PRN Reason: ORAL PAIN/MOUTH SORES Last Admin: 03/29/18 06:16 Dose: 20 ml Lidocaine/Aluminum/Magnesium/Simeth (Magic Mouthwash *Sjr Formula* -) 5 ml MM Q4HPO FLAVIO Last Admin: 03/29/18 09:00 Dose: 5 ml Morphine Sulfate (Morphine 10 Mg/5 Ml Liquid) 5 mg PO Q6H PRN PRN Reason: PAIN LEVEL 6-10 Last Admin: 03/28/18 21:18 Dose: 5 mg Witch Chikis/Glycerin (Tucks Pads -) 1 pad TP BID [facility] Last Admin: 03/29/18 09:01 Dose: 1 cap.sprink Laboratory Results - last 24 hr 03/28/18 03/29/18 03/29/18 06:30 06:00 06:00 WBC 5.1 RBC 2.53 L Hgb 8.0 L Hct 23.6 L MCV 93.1 MCH 31.5 MCHC 33.8 RDW 18.4 H Plt Count 91 L MPV 11.6 H Absolute Neuts (auto) 0.6 L Neutrophils % 12.4 L D Neutrophils % (Manual) 21.9 L D 11.0 L D Band Neutrophils % 0.0 7.0 Lymphocytes % 33.5 Lymphocytes % (Manual) 24.0 50.0 H D Monocytes % 49.5 H Monocytes % (Manual) 52 H 28 H Eosinophils % 4.5 Eosinophils % (Manual) 1.0 D 3.0 D Basophils % 0.1 Basophils % (Manual) 0.0 0.0 Myelocytes % (Man) 0 Promyelocytes % (Man) 0 Blast Cells % (Manual) 0 Nucleated RBC % 0 1 H Metamyelocytes 1 1 Hypochromia 0 Platelet Estimate Decreased Decreased Platelet Comment No clumping noted Polychromasia 1+ Poikilocytosis 1+ Anisocytosis 1+ Microcytosis 1+ Macrocytosis 1+ Sodium 143 Potassium 3.4 L Chloride 108 H Carbon Dioxide 27 Anion Gap 8 BUN 3 L Creatinine 0.7 Creat Clearance w eGFR > 60 Random Glucose 77 Calcium 7.8 L Phosphorus 2.9 Magnesium 1.8 Total Bilirubin 0.4 AST 25 ALT 25 Alkaline Phosphatase 105 Total Protein 5.4 L Albumin 2.1 L ASSESSMENT AND PLAN: 62 yof with PMHx of RA on Methotrexate (for years, stopped 2 weeks ago), admitted with painful ulcers in her mouth (since August) and rectum, progressive with decreased oral intake, found with neutropenic fevers, bacteremia -Acute stomatitis/perianal ulcers/Leucopenia with severe absolute neutropenia, suspected Methotrexate toxicity -Neutropenic fevers, with staph stimulans bacteremia -Anemia, ?bone marrow suppression/myeloproliferative disorder, low suspicion for acute bleed -Thrombocytopenia, ?Myeloproliferative disorder, r/o HIT -Folic acid deficiency -RA on Methotrexate -Hypokalemia -Hypophosphatemia -HEATHER, ?from poor oral intake -Hypernatremia, suspect from poor oral intake -Hyperchloremia, suspect iatrogenic -Failure to thrive, from above. -Maculopapular rash, ?Drug allergy ?clindamycin vs contact from skin lotion. Plan: Bone marrow recovering, counts improved. ANC 600 today. Heme/onc input appreciated. s/p 1 unit PRBC, monitor h/h. Platelets improved, making HIT less likely. Follow up HIT panel. Hold heparin for now, SCDs when in bed s/p leucovorin. Start PO folate . Hold off on bone marrow biopsy/neupogen as improving. Defer to Hematology. Afebrile, final blood cultures noted. ID input appreciated. Rash improved, off clindacmyin. Cefepime till ANC >1k Benadryl prn for rash and monitor for now. Rheumatology input appreciated.. replete k and phos. Cr improved. Off IVF. Monitor renal function. Speech/swallow eval noted. Pureed diet with thin liquids. DVTPPx with SCDs as above. Dispo pending resolution of medical issues. in 2-3 days if continues to improve. Plan discussed with patient in detail, all questions answered.
[2018-03-29] MEDS: FOLIC ACID 1 MG TABLET (FP) PO SCH (10:52)
[2018-03-29] MEDS ORDERED: POTASSIUM CHLORIDE ORAL LIQUID 20 MEQ/15 ML PO ONE (13:15)
--- NOTE | 2018-03-29 14:16 | PN ---
Progress Note, Physician History of Present Illness: Infectious Disease f/u note: Pt states she feels better and that her oral/perianal ulcers are improving. Rash on back/chest is less pruritis. Has been afebrile. No other specific complaints expressed. - Current Medication List Current Medications: Active Medications Acetaminophen (Tylenol -) 650 mg PO Q4H PRN PRN Reason: PAIN LEVEL 1 - 3 Last Admin: 03/27/18 13:28 Dose: 650 mg Diphenhydramine HCl (Benadryl -) 25 mg PO TID PRN PRN Reason: FLUSH Last Admin: 03/29/18 02:36 Dose: 25 mg Folic Acid (Folic Acid -) 1 mg PO DAILY FLAVIO Last Admin: 03/29/18 10:52 Dose: 1 mg IV Flush (Picc Line Flush) 8 ml IVPUSH PRN PRN PRN Reason: Protocol Cefepime HCl (Maxipime 1 Gm Premix Ivpb) 1 gm in 50 mls @ 100 mls/hr IVPB Q8H- IV FLAVIO; Protocol Last Admin: 03/29/18 09:00 Dose: 100 mls/hr Lactobacillus Acidophilus (Bacid -) 1 tab PO BID FLAVIO Last Admin: 03/29/18 09:01 Dose: 1 tab Lidocaine HCl (Xylocaine 2% Viscous Oral -) 20 ml MM TID PRN PRN Reason: ORAL PAIN/MOUTH SORES Last Admin: 03/29/18 13:30 Dose: 20 ml Lidocaine/Aluminum/Magnesium/Simeth (Magic Mouthwash *Sjr Formula* -) 5 ml MM Q4HPO [facility] Last Admin: 03/29/18 13:24 Dose: 5 ml Morphine Sulfate (Morphine 10 Mg/5 Ml Liquid) 5 mg PO Q6H PRN PRN Reason: PAIN LEVEL 6-10 Last Admin: 03/28/18 21:18 Dose: 5 mg Witch Chikis/Glycerin (Tucks Pads -) 1 pad TP BID [facility] Last Admin: 03/29/18 09:01 Dose: 1 cap.[place] - Objective Vital Signs: Vital Signs Temperature 98.4 F 03/29/18 10:00 Pulse Rate 96 H 03/29/18 10:00 Respiratory Rate 18 03/29/18 10:00 Blood Pressure 116/63 03/29/18 10:00 O2 Sat by Pulse Oximetry (%) 96 03/29/18 09:00 Constitutional: Yes: No Distress, Calm HENT: Yes: Other (ulcers improving) Cardiovascular: Yes: Regular Rate and Rhythm Respiratory: Yes: Regular Gastrointestinal: Yes: Normal Bowel Sounds, Soft Extremities: Yes: WNL Integumentary: Yes: Other (mild gluteal ulcerations) Neurological: Yes: Alert, Oriented Labs: CBC, BMP 03/29/18 06:00 03/29/18 06:00 INR, PTT INR 1.19 (0.83-1.09) H 03/21/18 16:50 Problem List - Problems (1) Neutropenic fever Code(s): D70.9 - NEUTROPENIA, UNSPECIFIED; R50.81 - FEVER PRESENTING WITH CONDITIONS CLASSIFIED ELSEWHERE (2) Stomatitis, ulcerative Code(s): K12.1 - OTHER FORMS OF STOMATITIS (3) Rheumatoid arthritis Code(s): M06.9 - RHEUMATOID ARTHRITIS, UNSPECIFIED Assessment/Plan 62 y.o. female presenting with stomatitis, oral/perianal ulcers and fever with leukopenia and inability to eat. Recent development of rash. pt clinically improving wbc now normal, afebrile continue antibiotic, clindamycin was d/c plan switch to po antibiotics if tolerating oral intake
[2018-03-29] MEDS: CLINDAMYCIN 300 MG PREMIX IVPB 300 MG/50 ML BAG IVPB SCH (19:14)
[2018-03-29] MEDS: morphine SULFATE 10 MG/5 ML UNIT-DOSE CUP PO PRN (20:00)
[2018-03-30] MEDS: MAG HYDROX/ALH/SMC/DPHA/LIDO 240 ML MOUTHWASH MM SCH ×6 (01:04→21:10)
[2018-03-30] MEDS: diphenhydrAMINE HCL 25 MG CAPSULE (FP) PO PRN ×2 (01:04→21:10)
[2018-03-30] MEDS: CEFEPIME HCL/D5W 1 GM/50 ML BAG IVPB SCH ×2 (01:04→09:26)
[2018-03-30] MEDS ORDERED: PT OWN MED DRAWER 7, Y5N ONE ×2 (05:17→09:31)
[2018-03-30] MEDS: LIDOCAINE VISCOUS 2% ORAL/TOP 20 ML UNIT-DOSE CUP MM PRN ×3 (05:24→16:33)
--- NOTE | 2018-03-30 08:08 | PN ---
Physical Exam: SUBJECTIVE: Patient seen and examined, mouth ulcers and pain continue to improve , tolerating diet well. OBJECTIVE: Vital Signs Period Temp Pulse Resp BP Sys/Muniz Pulse Ox Last 24 Hr 97.2 F-99.0 F 68-96 18-21 114-132/63-73 96-96 GENERAL: sitting in chair about to have lunch Chest:CTAB, no rales or wheezing Skin: improved rash Abdomen:soft, obese, NT Extremities: no edema Laboratory Results - last 24 hr 03/26/18 03/29/18 13:30 06:00 Neutrophils % (Manual) 11.0 L D Band Neutrophils % 7.0 Lymphocytes % (Manual) 50.0 H D Monocytes % (Manual) 28 H Eosinophils % (Manual) 3.0 D Basophils % (Manual) 0.0 Metamyelocytes 1 Platelet Estimate Decreased Platelet Comment No clumping noted Heparin-Ind Plt Ab Scrn 0.171 Active Medications Generic Name Dose Route Start Last Admin Trade Name Freq PRN Reason Stop Dose Admin Acetaminophen 650 mg 03/22/18 01:28 03/27/18 13:28 Tylenol - PO 650 mg Q4H PRN Administration PAIN LEVEL 1 - 3 Diphenhydramine HCl 25 mg 03/27/18 10:43 03/30/18 01:04 Benadryl - PO 25 mg TID PRN Administration FLUSH Folic Acid 1 mg 03/29/18 10:00 03/29/18 10:52 Folic Acid - PO 1 mg DAILY FLAVIO Administration IV Flush 8 ml 03/25/18 17:52 Picc Line Flush IVPUSH PRN PRN Protocol Cefepime HCl 1 gm in 50 mls @ 100 mls/hr 03/26/18 18:45 03/30/18 01:04 Maxipime 1 Gm Premix Ivpb IVPB 100 mls/hr Q8H-IV FLAVIO Administration Protocol Lactobacillus Acidophilus 1 tab 03/22/18 10:00 03/29/18 21:10 Bacid - PO 1 tab BID FLAVIO Administration Lidocaine HCl 20 ml 03/22/18 14:00 03/30/18 05:24 Xylocaine 2% Viscous Oral - MM 20 ml TID PRN Administration ORAL PAIN/MOUTH SORES Lidocaine/Aluminum/Magnesium/Simeth 5 ml 03/22/18 18:00 03/30/18 05:24 Magic Mouthwash *Sjr Formula* - MM 5 ml Q4HPO FLAVIO Administration Morphine Sulfate 5 mg 03/28/18 10:13 03/29/18 20:00 Morphine 10 Mg/5 Ml Liquid PO 5 mg Q6H PRN Administration PAIN LEVEL 6-10 Witch Chikis/Glycerin 1 pad 03/22/18 22:00 03/29/18 21:10 Tucks Pads - TP 1 pad BID FLAVIO Administration Laboratory Results - last 24 hr 03/26/18 03/27/18 03/30/18 13:30 08:20 07:08 WBC 5.3 RBC 2.83 L Hgb 8.9 L Hct 26.9 L MCV 95.0 MCH 31.3 MCHC 32.9 RDW 18.6 H Plt Count 147 D MPV 11.4 H Absolute Neuts (auto) 1.2 L Neutrophils % 23.0 L D Neutrophils % (Manual) 16.0 L D Band Neutrophils % 4.0 Lymphocytes % 25.3 D Lymphocytes % (Manual) 30.0 D Monocytes % 45.2 H Monocytes % (Manual) 28 H Eosinophils % 6.1 H Eosinophils % (Manual) 11.0 H D Basophils % 0.4 D Basophils % (Manual) 0.0 Myelocytes % (Man) 3 H D Nucleated RBC % 2 H Metamyelocytes 3 H D Plasma Cells 1 Platelet Estimate Adequate Platelet Comment Many lg.plts Sodium Potassium Chloride Carbon Dioxide Anion Gap BUN Creatinine Creat Clearance w eGFR Random Glucose Calcium Phosphorus Magnesium Heparin-Ind Plt Ab Scrn 0.171 Blood Type O POSITIVE Antibody Screen Negative Crossmatch See Detail 03/30/18 07:08 WBC RBC Hgb Hct MCV MCH MCHC RDW Plt Count MPV Absolute Neuts (auto) Neutrophils % Neutrophils % (Manual) Band Neutrophils % Lymphocytes % Lymphocytes % (Manual) Monocytes % Monocytes % (Manual) Eosinophils % Eosinophils % (Manual) Basophils % Basophils % (Manual) Myelocytes % (Man) Nucleated RBC % Metamyelocytes Plasma Cells Platelet Estimate Platelet Comment Sodium 143 Potassium 4.1 Chloride 108 H Carbon Dioxide 27 Anion Gap 8 BUN 4 L Creatinine 0.8 Creat Clearance w eGFR > 60 Random Glucose 82 Calcium 8.4 L Phosphorus 2.0 L Magnesium 1.8 Heparin-Ind Plt Ab Scrn Blood Type Antibody Screen Crossmatch ASSESSMENT/PLAN: 62 yof with PMHx of RA on Methotrexate (for years, stopped 2 weeks ago), admitted with painful ulcers in her mouth (since August) and rectum, progressive with decreased oral intake, found with neutropenic fevers, bacteremia -Acute stomatitis/perianal ulcers/Leucopenia with severe absolute neutropenia, suspected Methotrexate toxicity -Neutropenic fevers, with staph stimulans bacteremia -Anemia, ?bone marrow suppression/myeloproliferative disorder, low suspicion for acute bleed -Thrombocytopenia, ?Myeloproliferative disorder, r/o HIT -Folic acid deficiency -RA on Methotrexate -Hypokalemia -Hypophosphatemia -HEATHER, ?from poor oral intake -Hypernatremia, suspect from poor oral intake -Hyperchloremia, suspect iatrogenic -Failure to thrive, from above. -Maculopapular rash, ?Drug allergy ?clindamycin vs contact from skin lotion. Plan: Bone marrow recovering, counts improved. Heme/onc input appreciated. s/p 1 unit PRBC, h/h stable. Platelets improved, HIT screen neg. s/p leucovorin. Continue PO folate . Hold off on bone marrow biopsy/neupogen as improving. Defer to Hematology. Afebrile, final blood cultures noted. ID input appreciated. Rash improved, off clindacmyin. Dc neutropenic precautions. ANC 1.2, discussed with ID for antibiotics taper, will follo wup. Benadryl prn for rash and monitor for now. Rheumatology input appreciated.. Replete Phos Cr improved. Off IVF. Monitor renal function. Speech/swallow eval noted. Pureed diet with thin liquids. DVTPPx SCDs, start heparin in 24 hours if counts stable and longer stay expected. Dispo pending resolution of medical issues. in 1-2 days if continues to improve. PT eval and dispo planning. Plan discussed with patient in detail, all questions answered. Visit type - Emergency Visit Emergency Visit: Yes ED Registration Date: 03/22/18 Care time: The patient presented to the Emergency Department on the above date and was hospitalized for further evaluation of their emergent condition. - New Patient This patient is new to me today: No - Critical Care Critical Care patient: No - Discharge Referral Referred to [facility] Med [facility] No
[2018-03-30 08:18] LABS: BASO % 0.4 % (0-2.0); EOS % 6.1 % (0-4.5); HEMATOCRIT 26.9 % (32.4-45.2); HEMOGLOBIN 8.9 GM/dL (10.7-15.3); LYMPH % 25.3 % (8-40); MCH 31.3 pg (25.7-33.7); MCHC 32.9 g/dl (32.0-36.0); MEAN PLT VOLUME 11.4 fl (7.5-11.1); MONO % 45.2 % (3.8-10.2); PLATELET COUNT 147 K/MM3 (134-434); RBC 2.83 M/mm3 (3.60-5.2); RDW 18.6 % (11.6-15.6); WHITE BLOOD COUNT 5.3 K/mm3 (4.0-10.0)
[2018-03-30 08:56] LABS: ANION GAP 8 (8-16); BLOOD UREA NITROGEN 4 mg/dL (7-18); CALCIUM 8.4 mg/dL (8.5-10.1); CHLORIDE 108 mmol/L (98-107); CO2 27 mmol/L (21-32); CREATININE 0.8 mg/dL (0.55-1.02); GLUCOSE,RANDOM 82 mg/dL (74-106); MAGNESIUM 1.8 mg/dL (1.8-2.4); POTASSIUM 4.1 mmol/L (3.5-5.1); SODIUM 143 mmol/L (136-145)
[2018-03-30] MEDS: morphine SULFATE 10 MG/5 ML UNIT-DOSE CUP PO PRN ×2 (09:24→21:10)
[2018-03-30] MEDS: LACTOBACILLUS ACIDOPHILUS 1 TABLET PO SCH ×2 (09:26→21:10)
[2018-03-30] MEDS: FOLIC ACID 1 MG TABLET (FP) PO SCH (09:33)
[2018-03-30] MEDS: WITCH HAZEL 50% (TUCKS) 40 PAD/JAR PAD TP SCH ×2 (09:36→21:11)
[2018-03-30 13:31] LABS: PLATELET ESTIMATE ADEQUATE
[2018-03-30] MEDS ORDERED: WATER IVPB ONE (14:30)
[2018-03-30] MEDS ORDERED: DEXTROSE IVPB ONE (14:30)
[2018-03-30] MEDS ORDERED: SODIUM PHOSPHATE IVPB ONE (14:30)
[2018-03-30] MEDS ORDERED: NAPH,MB-DB/K PH,MBDB POWDER PACKET PO ONE (16:49)
--- NOTE | 2018-03-30 17:06 | PN ---
Progress Note, Physician History of Present Illness: Pt remains afebrile. Currently without IV access despite several attempts to place. Has decreased pain from oral ulcers but on puree diet and unable to swallow pills. No other specific complaints. wbc now in normal range. - Current Medication List Current Medications: Active Medications Acetaminophen (Tylenol -) 650 mg PO Q4H PRN PRN Reason: PAIN LEVEL 1 - 3 Last Admin: 03/27/18 13:28 Dose: 650 mg Diphenhydramine HCl (Benadryl -) 25 mg PO TID PRN PRN Reason: FLUSH Last Admin: 03/30/18 01:04 Dose: 25 mg Folic Acid (Folic Acid -) 1 mg PO DAILY [facility]IO Last Admin: 03/30/18 09:33 Dose: 1 mg IV Flush (Picc Line Flush) 8 ml IVPUSH PRN PRN PRN Reason: Protocol Cefepime HCl (Maxipime 1 Gm Premix Ivpb) 1 gm in 50 mls @ 100 mls/hr IVPB Q8H- IV FLAVIO; Protocol Last Admin: 03/30/18 09:26 Dose: 100 mls/hr Sodium Phosphate 25 mm/ (Dextrose) 508.3333 mls @ 84.722 mls/hr IVPB ONCE ONE Stop: 03/30/18 20:29 Lactobacillus Acidophilus (Bacid -) 1 tab PO BID [facility]LA[facility]IO Last Admin: 03/30/18 09:26 Dose: 1 tab Lidocaine HCl (Xylocaine 2% Viscous Oral -) 20 ml MM TID PRN PRN Reason: ORAL PAIN/MOUTH SORES Last Admin: 03/30/18 16:33 Dose: 20 ml Lidocaine/Aluminum/Magnesium/Simeth (Magic Mouthwash *Sjr Formula* -) 5 ml MM Q4HPO [facility]LA[facility] Last Admin: 03/30/18 13:24 Dose: 5 ml Morphine Sulfate (Morphine 10 Mg/5 Ml Liquid) 5 mg PO Q6H PRN PRN Reason: PAIN LEVEL 6-10 Last Admin: 03/30/18 09:24 Dose: 5 mg Witch Chikis/Glycerin (Tucks Pads -) 1 pad TP BID [facility]LA[facility]IO Last Admin: 03/30/18 09:36 Dose: 1 pad - Objective Vital Signs: Vital Signs Temperature 98.1 F 03/30/18 14:24 Pulse Rate 76 03/30/18 14:24 Respiratory Rate 16 03/30/18 14:24 Blood Pressure 141/84 03/30/18 14:24 O2 Sat by Pulse Oximetry (%) 96 03/30/18 09:00 Constitutional: Yes: No Distress, Calm HENT: Yes: Other (mild difficulty opening mouth wide, mild oral tenderness but improved) Cardiovascular: Yes: Regular Rate and Rhythm Respiratory: Yes: Regular Gastrointestinal: Yes: Normal Bowel Sounds, Soft Neurological: Yes: Alert, Oriented Labs: CBC, BMP 03/30/18 07:08 03/30/18 07:08 INR, PTT INR 1.19 (0.83-1.09) H 03/21/18 16:50 Problem List - Problems (1) Neutropenic fever Code(s): D70.9 - NEUTROPENIA, UNSPECIFIED; R50.81 - FEVER PRESENTING WITH CONDITIONS CLASSIFIED ELSEWHERE (2) Stomatitis, ulcerative Code(s): K12.1 - OTHER FORMS OF STOMATITIS (3) Rheumatoid arthritis Code(s): M06.9 - RHEUMATOID ARTHRITIS, UNSPECIFIED Assessment/Plan 62 y.o. female with RA previously on methotrexate presenting with stomatitis, oral/perianal ulcers, and fever with leukopenia/thrombocytopenia and inability to eat. Recent development of rash, now resolved. Neutropenic fever - resolved Oral ulcers/stomatitis - improving RA on methotrexate pt clinically improving wbc now normal, afebrile x 48 hrs no current IV access , unable to swallow pills -- monitor off IV antibiotics for now continue oral care
--- NOTE | 2018-03-30 20:03 | PN ---
Progress Note (short form) - Note Progress Note: Patient seen in follow up. Reports mouth ulcer pain continues to improve. Otherwise feeling well. No significant events overnight. Inpatient Meds reviewed. Current Medications Generic Name Dose Route Start Last Admin Trade Name Freq PRN Reason Stop Dose Admin Acetaminophen 650 mg 03/22/18 01:28 03/27/18 13:28 Tylenol - PO 650 mg Q4H PRN Administration PAIN LEVEL 1 - 3 Diphenhydramine HCl 25 mg 03/27/18 10:43 03/30/18 01:04 Benadryl - PO 25 mg TID PRN Administration FLUSH Folic Acid 1 mg 03/29/18 10:00 03/30/18 09:33 Folic Acid - PO 1 mg DAILY FLAVIO Administration IV Flush 8 ml 03/25/18 17:52 Picc Line Flush IVPUSH PRN PRN Protocol Sodium Phosphate 25 mm/ 508.3333 mls @ 84.722 mls/hr 03/30/18 14:30 03/30/18 15:00 Dextrose IVPB 03/30/18 20:29 Not Given ONCE ONE Lactobacillus Acidophilus 1 tab 03/22/18 10:00 03/30/18 09:26 Bacid - PO 1 tab BID FLAVIO Administration Lidocaine HCl 20 ml 03/22/18 14:00 03/30/18 16:33 Xylocaine 2% Viscous Oral - MM 20 ml TID PRN Administration ORAL PAIN/MOUTH SORES Lidocaine/Aluminum/Magnesium/Simeth 5 ml 03/22/18 18:00 03/30/18 17:56 Magic Mouthwash *Sjr Formula* - MM 5 ml Q4HPO FLA[facility]IO Administration Morphine Sulfate 5 mg 03/28/18 10:13 03/30/18 09:24 Morphine 10 Mg/5 Ml Liquid PO 5 mg Q6H PRN Administration PAIN LEVEL 6-10 Witch Chikis/Glycerin 1 pad 03/22/18 22:00 03/30/18 09:36 Tucks Pads - TP 1 pad BID FLAVIO Administration On Examination: Last Vital Signs Temp Pulse Resp BP Pulse Ox 98.1 F 76 16 141/84 96 03/30/18 14:24 03/30/18 14:24 03/30/18 14:24 03/30/18 14:24 03/30/18 09:00 Labs: CBC, BMP 03/30/18 07:08 03/30/18 07:08 General. Looks well, sitting in chair. Well hydrated, no pallor or cyanosis. No edema. No adenopathy. Respiratory. Breathing comfortably, clear. Cardiology. S1, S2, no gallop or murmur. Abdomen. Soft, no organomegaly. Neurology. Alert and oriented, non-focal. Assessment. Neutropenia, and progressive anemia and thrombocytopenia, despite limited and remote MTX exposure, worrisome and raised concern about an independent process. Neutrophil recovery noted, and improvement in platelet count, suggestive of recovering marrow. ANC > 1K today. .
[2018-03-31] MEDS: MAG HYDROX/ALH/SMC/DPHA/LIDO 240 ML MOUTHWASH MM SCH ×3 (01:02→09:56)
[2018-03-31] MEDS: diphenhydrAMINE HCL 25 MG CAPSULE (FP) PO PRN ×2 (05:25→12:55)
[2018-03-31] MEDS: morphine SULFATE 10 MG/5 ML UNIT-DOSE CUP PO PRN ×2 (05:25→12:54)
[2018-03-31] MEDS: LIDOCAINE VISCOUS 2% ORAL/TOP 20 ML UNIT-DOSE CUP MM PRN ×2 (05:25→12:55)
[2018-03-31 05:58] VITALS: BP 121/76; PULSE 70; TEMP 97.8
[2018-03-31 07:27] LABS: BASO % 0.4 % (0-2.0); EOS % 4.7 % (0-4.5); HEMATOCRIT 26.2 % (32.4-45.2); HEMOGLOBIN 8.8 GM/dL (10.7-15.3); LYMPH % 26.3 % (8-40); MCH 31.9 pg (25.7-33.7); MCHC 33.5 g/dl (32.0-36.0); MEAN CELL VOLUME 95.3 fl (80-96); MEAN PLT VOLUME 11.8 fl (7.5-11.1); MONO % 36.5 % (3.8-10.2); NEUT % 32.1 % (42.8-82.8); PLATELET COUNT 178 K/MM3 (134-434); RBC 2.75 M/mm3 (3.60-5.2); RDW 18.7 % (11.6-15.6); WHITE BLOOD COUNT 6.2 K/mm3 (4.0-10.0)
--- NOTE | 2018-03-31 07:43 | PN ---
Teaching Attending Note Name of Resident: Haylee Portillo ATTENDING PHYSICIAN STATEMENT I saw and evaluated the patient. I reviewed the resident's note and discussed the case with the resident. I agree with the resident's findings and plan as documented with exceptions below. SUBJECTIVE: Patient seen and examined. mouth ulcers markedly improved. tolerating diet well. no new bleed or concerns. Rash resolving. OBJECTIVE: Vital Signs Period Temp Pulse Resp BP Sys/Muniz Pulse Ox Last 24 Hr 97.6 F-98.5 F 70-110 16-20 121-141/76-84 96-96 Intake & Output 03/28/18 03/29/18 03/30/18 03/31/18 23:59 23:59 23:59 23:59 Intake Total 2150 1000 645 120 Balance 2150 1000 645 120 Weight 190 lb 8 oz General: ambulating in hallway, no concerns HEENT: oral ulcers markedly improved, no bleed or discharge Skin: resolving rash Active Medications Acetaminophen (Tylenol -) 650 mg PO Q4H PRN PRN Reason: PAIN LEVEL 1 - 3 Last Admin: 03/27/18 13:28 Dose: 650 mg Diphenhydramine HCl (Benadryl -) 25 mg PO TID PRN PRN Reason: FLUSH Last Admin: 03/31/18 05:25 Dose: 25 mg Folic Acid (Folic Acid -) 1 mg PO DAILY [facility] Last Admin: 03/30/18 09:33 Dose: 1 mg IV Flush (Picc Line Flush) 8 ml IVPUSH PRN PRN PRN Reason: Protocol Lactobacillus Acidophilus (Bacid -) 1 tab PO BID [facility] Last Admin: 03/30/18 21:10 Dose: 1 tab Lidocaine HCl (Xylocaine 2% Viscous Oral -) 20 ml MM TID PRN PRN Reason: ORAL PAIN/MOUTH SORES Last Admin: 03/31/18 05:25 Dose: 20 ml Lidocaine/Aluminum/Magnesium/Simeth (Magic Mouthwash *Sjr Formula* -) 5 ml MM Q4HPO [facility] Last Admin: 03/31/18 05:21 Dose: 5 ml Morphine Sulfate (Morphine 10 Mg/5 Ml Liquid) 5 mg PO Q6H PRN PRN Reason: PAIN LEVEL 6-10 Last Admin: 03/31/18 05:25 Dose: 5 mg Witch Chikis/Glycerin (Tucks Pads -) 1 pad TP BID FLAVIO Last Admin: 03/30/18 21:11 Dose: 1 pad ASSESSMENT AND PLAN: 62 yof with PMHx of RA on Methotrexate (for years, stopped 2 weeks ago), admitted with painful ulcers in her mouth (since August) and rectum, progressive with decreased oral intake, found with neutropenic fevers, bacteremia -Acute stomatitis/perianal ulcers/Leucopenia with severe absolute neutropenia, suspected Methotrexate toxicity -Neutropenic fevers, with staph stimulans bacteremia -Anemia, ?bone marrow suppression/myeloproliferative disorder, low suspicion for acute bleed -Thrombocytopenia, ?Myeloproliferative disorder, r/o HIT -Folic acid deficiency -RA on Methotrexate -Hypokalemia -Hypophosphatemia -HEATHER, ?from poor oral intake -Hypernatremia, suspect from poor oral intake -Hyperchloremia, suspect iatrogenic -Failure to thrive, from above. -Maculopapular rash, ?Drug allergy ?clindamycin vs contact from skin lotion. Plan: Counts improved. Afebrile, off antibiotics. Discussed with Dr. Rivero, CBC In 2 weeks to determine if needs bone marrow biopsy. No need for folate or leucovorin as discussed. Magic mouthwash. Dr. Canas information provided. Outpatient GI follow up. D/c home today. plan discussed with patient in detail, all questions answered.
[2018-03-31 07:54] LABS: ANION GAP 11 (8-16); BLOOD UREA NITROGEN 3 mg/dL (7-18); CHLORIDE 108 mmol/L (98-107); CO2 24 mmol/L (21-32); GLUCOSE,RANDOM 77 mg/dL (74-106); MAGNESIUM 1.8 mg/dL (1.8-2.4); POTASSIUM 3.7 mmol/L (3.5-5.1); SODIUM 143 mmol/L (136-145)
[2018-03-31 07:56] LABS: CREATININE 0.7 mg/dL (0.55-1.02); PHOSPHOROUS 2.5 mg/dL (2.5-4.9)
[2018-03-31] MEDS: LACTOBACILLUS ACIDOPHILUS 1 TABLET PO SCH (09:56)
[2018-03-31] MEDS: FOLIC ACID 1 MG TABLET (FP) PO SCH (09:56)
[2018-03-31] MEDS: WITCH HAZEL 50% (TUCKS) 40 PAD/JAR PAD TP SCH (09:57)
[2018-03-31 13:50] LABS: ANISOCYTOSIS 2+; MACROCYTOSIS 2+; PLATELET ESTIMATE NORMAL
--- NOTE | 2018-03-31 14:30 | PN ---
Progress Note, Physician History of Present Illness: patient doing very well no issues has been off of abx mouth doing well - Current Medication List Current Medications: Active Medications Acetaminophen (Tylenol -) 650 mg PO Q4H PRN PRN Reason: PAIN LEVEL 1 - 3 Last Admin: 03/27/18 13:28 Dose: 650 mg Diphenhydramine HCl (Benadryl -) 25 mg PO TID PRN PRN Reason: FLUSH Last Admin: 03/31/18 12:55 Dose: 25 mg Folic Acid (Folic Acid -) 1 mg PO DAILY [facility] Last Admin: 03/31/18 09:56 Dose: 1 mg IV Flush (Picc Line Flush) 8 ml IVPUSH PRN PRN PRN Reason: Protocol Lactobacillus Acidophilus (Bacid -) 1 tab PO BID [facility] Last Admin: 03/31/18 09:56 Dose: 1 tab Lidocaine HCl (Xylocaine 2% Viscous Oral -) 20 ml MM TID PRN PRN Reason: ORAL PAIN/MOUTH SORES Last Admin: 03/31/18 12:55 Dose: 20 ml Lidocaine/Aluminum/Magnesium/Simeth (Magic Mouthwash *Sjr Formula* -) 5 ml MM Q4HPO [facility] Last Admin: 03/31/18 09:56 Dose: 5 ml Morphine Sulfate (Morphine 10 Mg/5 Ml Liquid) 5 mg PO Q6H PRN PRN Reason: PAIN LEVEL 6-10 Last Admin: 03/31/18 12:54 Dose: 5 mg Witch Chikis/Glycerin (Tucks Pads -) 1 pad TP BID [facility] Last Admin: 03/31/18 09:57 Dose: 1 pad - Objective Vital Signs: Vital Signs Temperature 97.8 F 03/31/18 05:56 Pulse Rate 70 03/31/18 05:56 Respiratory Rate 20 03/31/18 05:56 Blood Pressure 121/76 03/31/18 05:56 O2 Sat by Pulse Oximetry (%) 98 03/31/18 10:00 Constitutional: Yes: No Distress, Calm HENT: Yes: Other (mouth improved) Cardiovascular: Yes: Regular Rate and Rhythm Respiratory: Yes: Regular, CTA Bilaterally Gastrointestinal: Yes: Normal Bowel Sounds, Soft Musculoskeletal: Yes: WNL Extremities: Yes: WNL Neurological: Yes: Alert, Oriented Psychiatric: Yes: Alert, Oriented Labs: CBC, BMP 03/31/18 05:30 03/31/18 05:30 INR, PTT INR 1.19 (0.83-1.09) H 03/21/18 16:50 Assessment/Plan Problem List - Problems (1) Stomatitis Code(s): K12.1 - OTHER FORMS OF STOMATITIS (2) Stomatitis, ulcerative Code(s): K12.1 - OTHER FORMS OF STOMATITIS (3) Neutropenic fever Code(s): D70.9 - NEUTROPENIA, UNSPECIFIED; R50.81 - FEVER PRESENTING WITH CONDITIONS CLASSIFIED ELSEWHERE 4 gm positive bacteremia Assessment/Plan A 62F with stomatitis, perianal ulcers and leukopenia coming in with fever and inability to eat also having blood cx positive which i think might be a contaminant stable off of abx doing well no issues mouth much better
--- NOTE | 2018-03-31 15:09 | PN ---
Progress Note, ECHOCARDIOGRAPHY TECHNOLOGIST - Note Progress Note: Selected Entries 03/29/18 03/29/18 03/29/18 08:55 13:55 18:30 Breakfast 50% Lunch 50% Supper 50% Temperature 03/30/18 03/30/18 03/30/18 06:00 10:00 10:53 Breakfast 25% Lunch Supper Temperature 97.2 F L 98.5 F 03/30/18 03/30/18 03/30/18 14:24 18:21 22:00 Breakfast Lunch 25% Supper Temperature 98.1 F 97.9 F 97.6 F 03/31/18 05:56 Breakfast Lunch Supper Temperature 97.8 F Laboratory Tests 03/31/18 05:30 WBC 6.2 Pt advanced to Reg/thin liquid.
--- NOTE | 2018-03-31 15:25 | PN ---
Progress Note (short form) - Note Progress Note: Patient seen and examined Mucositis is improving hemogram improving with persistent monocytosis Last Vital Signs Temp Pulse Resp BP Pulse Ox 97.8 F 70 20 121/76 98 03/31/18 05:56 03/31/18 05:56 03/31/18 05:56 03/31/18 05:56 03/31/18 10:00 HEENT: TONY, EOM Intact Oropharynx: No thrush mucositis Cor: RSR, No murmurs, No gallops Lungs: Clear to P&A Abd: Soft, Normal bowel sounds, No organomegaly Ext:No significant edema Skin: No rashes, Integument intact CBC, BMP 03/31/18 05:30 03/31/18 05:30 Current Medications Generic Name Dose Route Start Last Admin Trade Name Freq PRN Reason Stop Dose Admin Acetaminophen 650 mg 03/22/18 01:28 03/27/18 13:28 Tylenol - PO 650 mg Q4H PRN Administration PAIN LEVEL 1 - 3 Diphenhydramine HCl 25 mg 03/27/18 10:43 03/31/18 12:55 Benadryl - PO 25 mg TID PRN Administration FLUSH Folic Acid 1 mg 03/29/18 10:00 03/31/18 09:56 Folic Acid - PO 1 mg DAILY FLAVIO Administration IV Flush 8 ml 03/25/18 17:52 Picc Line Flush IVPUSH PRN PRN Protocol Lactobacillus Acidophilus 1 tab 03/22/18 10:00 03/31/18 09:56 Bacid - PO 1 tab BID FLAVIO Administration Lidocaine HCl 20 ml 03/22/18 14:00 03/31/18 12:55 Xylocaine 2% Viscous Oral - MM 20 ml TID PRN Administration ORAL PAIN/MOUTH SORES Lidocaine/Aluminum/Magnesium/Simeth 5 ml 03/22/18 18:00 03/31/18 09:56 Magic Mouthwash *Sjr Formula* - MM 5 ml Q4HPO FLAVIO Administration Morphine Sulfate 5 mg 03/28/18 10:13 03/31/18 12:54 Morphine 10 Mg/5 Ml Liquid PO 5 mg Q6H PRN Administration PAIN LEVEL 6-10 Witch Chikis/Glycerin 1 pad 03/22/18 22:00 03/31/18 09:57 Tucks Pads - TP 1 pad BID FLAVIO Administration Impression: Likely methotrexate toxicity causing mucositis and pancytopenia. Now hemogram improved , but peristent monocytosis. Mucositis slowly resolving. Will plan to follow up as outpaatient in 2-3 weeks to be assured of BM recovery and normalization of differential.
--- NOTE | 2018-03-31 15:28 | DS ---
Physical Exam: SUBJECTIVE: Patient seen and examined this morning at bedside. No new complaints. Speech and oral ulcers continue to improve. Tolerating diet. Denies fevers, chills, chest pain, SOB, nausea, vomiting, diarrhea, constipation. OBJECTIVE: Vital Signs Period Temp Pulse Resp BP Sys/Muniz Pulse Ox Last 24 Hr 97.6 F-97.9 F 70-110 16-20 121-139/76-84 96-98 PHYSICAL EXAM GENERAL: Awake, alert, Ability to speak continues to improve, in no acute distress. EYES: PERRL, EOMI THROAT: Oral ulcers have improved and decreased in size. Ulcers present over the caudad lip continue to improve, less visible dry blood. No longer drooling. Able to close mouth and move jaw without pain. Speech is more clear and continues to improve. No active bleeding or drainage. NECK: No JVD LUNGS: Breath sounds equal, clear to auscultation bilaterally. No wheezes. HEART: Regular rate and rhythm, normal S1 and S2 without murmur. ABDOMEN: Soft, nontender, not distended, normoactive bowel sounds, no guarding. EXTREMITIES: 2+ pulses, No peripheral edema. SKIN: Ulcers present between gluteal folds continue to improve, decreased tenderness, without active drainage/discharge, with no surrounding erythema or swelling. LABS Laboratory Results - last 24 hr 03/31/18 03/31/18 05:30 05:30 WBC 6.2 RBC 2.75 L Hgb 8.8 L Hct 26.2 L MCV 95.3 MCH 31.9 MCHC 33.5 RDW 18.7 H Plt Count 178 D MPV 11.8 H Absolute Neuts (auto) 2.0 Neutrophils % 32.1 L D Neutrophils % (Manual) 23.2 L D Band Neutrophils % 0.0 Lymphocytes % 26.3 Lymphocytes % (Manual) 36.8 D Monocytes % 36.5 H Monocytes % (Manual) 36 H Eosinophils % 4.7 H Eosinophils % (Manual) 4.2 Basophils % 0.4 Basophils % (Manual) 0.0 Myelocytes % (Man) 0 D Promyelocytes % (Man) 0 Blast Cells % (Manual) 0 Nucleated RBC % 1 H Metamyelocytes 0 D Hypochromia 0 Platelet Estimate Normal Polychromasia 2+ Poikilocytosis 0 Anisocytosis 2+ Microcytosis 0 Macrocytosis 2+ Sodium 143 Potassium 3.7 Chloride 108 H Carbon Dioxide 24 Anion Gap 11 BUN 3 L Creatinine 0.7 Creat Clearance w eGFR > 60 Random Glucose 77 Calcium 8.0 L Phosphorus 2.5 Magnesium 1.8 Microbiology 03/24/18 06:30 Blood - Peripheral Venous Blood Culture - Final NO GROWTH AFTER 5 DAYS INCUBATION 03/24/18 06:40 Blood - Peripheral Venous Blood Culture - Final NO GROWTH AFTER 5 DAYS INCUBATION 03/22/18 10:30 Face Gram Stain - Final 03/22/18 10:30 Face Wound Culture - Final 03/22/18 10:30 Buttock - Left Gram Stain - Final 03/22/18 10:30 Buttock - Left Wound Culture - Final Escherichia Coli Proteus Mirabilis Staphylococcus Coagulase Neg Diphtheroid/Corynebacterium Aerococcus Viridans 03/21/18 16:50 Blood - Peripheral Venous Blood Culture - Final NO GROWTH AFTER 5 DAYS INCUBATION 03/21/18 16:45 Blood - Peripheral Venous Blood Culture - Final Staphylococcus Simulans [place] Species 03/21/18 18:33 Urine - Urine Clean Catch Urine Culture - Final NO GROWTH OBTAINED IMAGING: - CXR: elevated right hemidiaphragm, large heart, unfolded aorta, left-sided pacemaker and no sign of an acute process. The bones and soft tissues are intact. - CT Chest, Abdomen and Pelvis: No evidence of pneumonia or acute pathology within the chest. Cholelithiasis. No evidence of intra-abdominal abscess or acute pathology within the abdomen or pelvis. HOSPITAL COURSE: Date of Admission:03/22/18 Date of Discharge: 03/31/18 Patient presented with painful ulcers in her mouth and rectum, was found to have neutropenic fever and admitted for sepsis. She was found to have an elevated Lactic acid of 2.2 accompanied by a temp of 103.1, WBC of 0.8 and ANC of 0.3 on admission. ID, GI, Hematology, Rheumatology, Speech and swallow were all consulted. She completed a 10 day course of Cefepime and responded well to IV Fluids. She was started on Clindamycin, however it was stopped as patient developed a rash over her torso. Diphenhydramine was used to control the itching and her rash improved. One bottle of her initial Blood culture was positive for Staph Simulans and [place] species, likely due to contamination. A repeat blood culture was negative. Her urine culture was also negative. A wound culture of her face was significant for moderate mixed oral misael. A wound culture of her gluteal fold ulcer was positive for E. Coli and Proteus Mirabilis; It was also positive for Normal skin misael (Staph coag neg, Diptheroid/Corynebacterium) and Aerococcus viridans, for which no further workup was necessary. She experienced Thrombocytopenia, Leukopenia, Neutropenia likely due to Methotrexate toxicity. She received 1 unit pRBCs (03/27) and her Heparin induced platelet antibody screen was wnl. She was started on Leucovorin , Her home dose methotrexate was stopped; Her oral and rectal ulcers began to improve. Her WBC count and absolute neutrophil count both rimma to 6.2 and 2.0 respectively. A Bone marrow biopsy was considered but held off on as her blood counts improved. Her pain was controlled with Magic mouthwash and Morphine. Her Lactic acidosis, hypokalemia and HEATHER resolved. Heparin was held in the setting of Thrombocytopenia, and SCDs were used for DVT PPx. She was discharged home with instructions to follow up with Rheumatology, Hematology and GI, and to have a CBC done in one week. Minutes to complete discharge: 45 Discharge Summary Reason For Visit: SEPSIS, FEBRILE NEUTROPENIA Current Active Problems Methotrexate adverse reaction (Acute) Mouth pain (Acute) Neutropenic fever (Acute) Rheumatoid arthritis (Acute) Sepsis (Acute) Stomatitis (Acute) Stomatitis, ulcerative (Acute) Condition: Stable - Instructions Diet, Activity, Other Instructions: You presented to the hospital with painful ulcers in your mouth and rectum and were found to have neutropenic fever. It is likely that the ulcers occurred due to Methotrexate. Please do not use this medication any further until you follow up with a speed operator. Dr. Canas's information has been provided and you can call his office to schedule follow up. You completed a 10 day course of Antibiotics and your fever resolved. Your blood counts dropped including your white cells and platelets. 1 unit of packed red blood cells was infused. It is likely that this occurred because of Methotrexate use. Please do not use this medication any further and follow up with Dr. Rivero. Call his office to schedule follow up. Please call Dr. Rivero to schedule follow up in 1-2 weeks as you will need follow up blood work (CBC) to determine if you may need a bone marrow biopsy in the future. You will need to follow up with a GI doctor out patient. Please call Dr. Arzola office to schedule an appointment. You will likely need a CT Scan of the Abdomen and pelvis. Please further discuss this with him. You developed a rash during your hospital stay. Please continue to use benadryl as needed to relive symptoms of the rash. If it persists, please follow up with your primary care physician. You should not take your home dose of lasix. Your blood pressures during your hospital stay have been acceptable and you may not need this medication. Please follow up with your primary care physician to further discuss. Please have your blood drawn for a CBC test (Blood work) in 1 week with your doctor. Use magic mouth wash before and after the meals. please follow instructions provided by speech/swallow therapist. Continue regular diet with thin liquids as recommended. Call 911 or Return to the ED if you experience any worrisome symptoms especially weakness, dizziness, blurry vision, fevers, chest pain, shortness of breath or worsening of rash, bleeding, fevers, inability to eat, worsening ulcers or any new concerns. Referrals: Gunnar Canas MD [Staff Physician] - Avinash Briseno MD [Staff Physician] - 3 Weeks Jeremi Rivero MD [Staff Physician] - 2 Weeks Disposition: HOME - Home Medications Comprehensive Discharge Medication List: Ambulatory Orders Mag Hydrox/Alh/Smc/Dpha/Lido [Magic Mouthwash *Sjr Formula* -] 5 ml MM Q4HPO #1 bottle 03/31/18 This patient is new to me today: No Emergency Visit: Yes ED Registration Date: 03/22/18 Care time: The patient presented to the Emergency Department on the above date and was hospitalized for further evaluation of their emergent condition. Critical Care patient: No - Discharge Referral Referred to [facility] No
== END 2018-03-31 15:46 | disposition home or self-care (01) | DRG 872 ==
LOC: JER 14:52 → JERBED 03-22 00:38 → UNDOADMIN 03-22 00:43 → J4S 03-22 01:47
PROVIDERS: ADMIT Internal Medicine; ATTEND Hospitalist
PROC: 05HM33Z Insertion of Infusion Device into Right Internal Jugular Vein, Percutaneous Approach (ICD-10-PCS; principal; 2018-03-25)
PROC: 30233N1 Transfusion of Nonautologous Red Blood Cells into Peripheral Vein, Percutaneous Approach (ICD-10-PCS; 2018-03-27)
DX: A41.9 Sepsis, unspecified organism (principal); N17.9 Acute kidney failure, unspecified; K62.6 Ulcer of anus and rectum; E87.0 Hyperosmolality and hypernatremia; E87.6 Hypokalemia; E03.9 Hypothyroidism, unspecified; M06.9 Rheumatoid arthritis, unspecified; Z95.0 Presence of cardiac pacemaker; D64.9 Anemia, unspecified; R50.81 Fever presenting with conditions classified elsewhere; K12.1 Other forms of stomatitis; D72.819 Decreased white blood cell count, unspecified; K12.32 Oral mucositis (ulcerative) due to other drugs; T45.1X5A Adverse effect of antineoplastic and immunosuppressive drugs, initial encounter; D70.2 Other drug-induced agranulocytosis; F17.210 Nicotine dependence, cigarettes, uncomplicated; E53.8 Deficiency of other specified B group vitamins; E87.8 Other disorders of electrolyte and fluid balance, not elsewhere classified; R62.7 Adult failure to thrive; R63.4 Abnormal weight loss; Z68.30 Body mass index [BMI] 30.0-30.9, adult; D69.6 Thrombocytopenia, unspecified; L27.0 Generalized skin eruption due to drugs and medicaments taken internally; E83.39 Other disorders of phosphorus metabolism
CPT/HCPCS: 36415; 36430; 71045-TC-FY; 71250-TC; 74176-TC; 80048; 80053; 81003; 81015; 82436; 82607; 82728; 82746; 82803; 82962; 83036; 83540; 83550; 83605; 83735; 84100; 84133; 84300; 84484; 85025; 85044; 85610; 85730; 86022; 86038; 86431; 86850; 86900; 86901; 86922; 87040; 87070; 87077; 87086; 87186; 87205; 87389; 87496; 93005; 93010; 99285-25; J0131; J1644; J7030; P9038; P9058